=== PATIENT | female | born 1960 | race Caucasian/White ===

== ENCOUNTER 2017-12-10 10:41 | Emergency (ER) | payer MEDICAID, SELFPAY ==
[2017-12-10 10:43] VITALS: BP 151/79; PULSE 69; RESP 24; TEMP 36.8; O2SAT 100; BMI 27.4
--- NOTE | 2017-12-10 11:06 | EKG12_ITS ---
Test Reason : Blood Pressure : / mmHG Vent. Rate : 063 BPM Atrial Rate : 063 BPM P-R Int : 156 ms QRS Dur : 082 ms QT Int : 438 ms P-R-T Axes : 031 007 026 degrees QTc Int : 448 ms Normal sinus rhythm Nonspecific T wave abnormality Abnormal ECG No previous ECGs available Confirmed by SHRUTHI BRONSON, BRIANA ([id number]), editorial manager MICHELLE LANDEROS ([id number]) on 12/17/2017 1:58:32 PM Referred By: ALISIA Confirmed By:BRIANA HAWKINS MD
--- NOTE | 2017-12-10 11:07 | ED.VISSUMM ---
- ER Visit Summary Date of Service: 12/10/17 Chief Complaint: Chest pain and bilateral upper extremity discomfort History of Present Illness: The patient is a 57 F who was brought from Dr. Angeles's office because of chest pain and bilateral arm pain. Patient states he felt fatigued, overburdened and overwhelmed on Saturday. She had no other symptoms. There were no alleviating, precipitating or exacerbating factors other than she had no energy to do anything. She states yesterday while sitting she developed left arm pain that was moderate in intensity that was followed by pain that went from the right to the left side described as a ache and if she was run over. When asked regarding the right arm pain her response did not make sense even with clarification because she responded left arm pain. She states nothing has made it better nor has anything precipitated. Palpation makes her pain worse. She has no history of PE or DVT or any risk factors. She denies any leg pain, swelling or discoloration. She denies headache, visual, ocular or auditory symptoms. She denies trouble with speech or swallowing. She presently is having chest pain. She has no respiratory symptoms. She has no GI or symptoms. There is no history of trauma. She denies rash or any skin lesions. Physical Examination: Vital signs are remarkable elevated blood pressure 151/79. Patient has a depressed affect with slow psychomotor skills. She is very soft-spoken. Head is atraumatic normocephalic. Pupils are equal round reactive. Extraocular muscles are intact. TMs are pearly white with landmarks noted. Nares patent with no drainage. Posterior pharynx without erythema or exudate. Uvula is midline. There is no dysphonia or dysphasia. Trachea is midline. There is no stridor with auscultation of the neck. There is no carotid bruit noted. Heart is regular without murmur, gallop or rub. S1 and S2 are normal. Lungs are clear to auscultation with good movement of air bilaterally. Patient has reproducible pain right and left side of the sternum to palpation. Abdomen is soft nontender with no hepatosplenomegaly. There is no asymmetry, swelling, discoloration, leg vein distention, palpable cords or tenderness along the distribution of the deep venous system. Neuro exam is nonfocal. Test Results: EKG is normal with a sinus mechanism and rate of 63. Computer reads nonspecific, which I am in disagreement with. View chest x-ray interpreted by me as negative. Troponin with greater than 20 hours of pain negative. Emergency Department Course and Treatment: Because there is a family history of coronary disease at early age EKG was ordered per nurse protocol and to evaluate her chest pain a chest x-ray was obtained to assess the cardiac silhouette and lung parenchyma mediastinum etc. Because she has had pain for greater than 20 hours troponin was obtained in the event that this is atypical cardiac presentation. Treatment Plan: Dr. Angeles was paged to inform him of findings and concerns. Disposition: Discharge to home with outpatient follow-up with Dr. Angeles Impression: 1. Bilateral chest pain 2. Depression 3. Generalized fatigue This note was generated with [employer] dictation software. It may contain incorrect words, spelling, and punctuation that were not noted in review of the chart prior to signing ED Disposition - Plan for ED Patient: Disposition: Home or Assisted Living Chief Complaint: Chest Pain Instructions: ED Chest Pain NonCardiac Referrals: Gustavo Angeles Chi, MD [Primary Care Provider] - 12/11/17 Additional Instructions: Call Dr. Angeles's office for appointment time to be seen tomorrow
--- NOTE | 2017-12-10 11:33 | RAD_ITS ---
STUDY: X-RAY CHEST REASON FOR EXAM: Female, 57 years old. Chest pain and arm pain. TECHNIQUE: PA and lateral views of the chest. COMPARISON: Comparison is made with prior study dated July 25, 2017. FINDINGS: EKG electrodes are seen. Surgical clips are seen in the left axillary region. The lungs are clear and expanded. There is no demonstrated pleural abnormality. Normal size heart. Normal mediastinum and hitesh. Normal visualized pulmonary arteries. Normal visualized aortic arch and descending thoracic aorta. There is demineralization of the osseous structures. Normal visualized ribs, clavicles, and shoulders. There is no demonstrated abnormality of the visualized soft tissue structures of the upper abdomen. RAD/Chest PA and Lateral IMPRESSION: No acute abnormality is seen. Electronically Signed: Natanael Flaherty MD at 12:35 EST Tel [phone], Service support ,
[2017-12-10 11:42] VITALS: BP 130/65; PULSE 62; RESP 19; O2SAT 100
[2017-12-10 12:31] VITALS: BP 135/70; PULSE 62; RESP 20; O2SAT 99
--- NOTE | 2017-12-10 12:35 | ED.RN ---
REVIEWED D/C INSTRUCTIONS, FOLLOW UP CARE, AND S/S THAT WOULD WARRANT A RETURN TO THE ED WITH PT. PT VERBALIZED AN UNDERSTANDING AND DENIES FURTHER QUESTIONS FOR THIS RN. PT SKIN P/W/D, RESP EVEN AND UNLABORED, PT A&O X 3, NO DISTRESS NOTED. PT AMBULATED OUT OF ED, GAIT STEADY.
== END 2017-12-10 12:36 | disposition home or self-care (01) ==
PROVIDERS: Emergency Provider Emergency Medicine; Family Provider Family Medicine Geriatric Medicine; PCP Family Medicine Geriatric Medicine
DX: R07.9 Chest pain, unspecified (principal); R53.83 Other fatigue; F32.9 Major depressive disorder, single episode, unspecified; I10 Essential (primary) hypertension; E78.00 Pure hypercholesterolemia, unspecified; Z79.51 Long term (current) use of inhaled steroids; Z79.899 Other long term (current) drug therapy
CPT/HCPCS: 71046; 84484; 93005; 99284; A4216

== ENCOUNTER → 2018-04-29 15:29 | Outpatient (CLI) | payer MEDICAID, SELFPAY ==
[2018-04-29 16:29] LABS: Absolute Lymphocyte Count 2.25 X10^3/ul (0.83-4.51); Basophil# 0.06 X10^3/uL; Basophil% 0.8 % (0-1); Eosinophil# 0.31 X10^3/uL; Eosinophils% 4.4 % (0-5); Hematocrit 34.8 % (37-47); Hemoglobin 11.5 g/dl (12.0-15.0); Lymphocyte # 2.25 X10^3/ul (4.0); Lymphocyte % 31.7 % (19-41); Mean Corpuscular Volume 90.9 fL (81-99); Mean Platelet Vol. 9.8 fl (6.2-12.0); Monocyte# 0.48 X10^3/uL; Monocyte% 6.8 % (0-10); Neutrophil # 3.98 X10^3/uL (2.7-7.7); Neutrophil % 56.2 % (47-70); Platelet Count 302 K/mm3 (150-450); RBC Distribution Width SD 42.9 fl (35.1-43.9); Red Blood Count 3.83 M/mm3 (4.2-5.4); White Blood Count 7.1 K/mm3 (4.4-11.0)
[2018-04-29 16:34] LABS: POSITIVE COUNT NO; POSITIVE DIFFERENTIAL NO; POSITIVE MORPHOLOGY NO
[2018-04-29 16:59] LABS: AST(SGOT) 20 U/L (15-37); Alanine Aminotransfer ALT/SGPT 29 U/L (13-56); Albumin, Serum 3.7 g/dL (3.2-5.0); Alkaline Phosphatase 92 U/L (45-117); Anion Gap 8 (5-15); BUN 9 mg/dL (7-18); BUN/Creat Ratio 11.4 RATIO (10-20); Calcium,Total 9.3 mg/dL (8.5-10.1); Chloride 106 mmol/L (98-107); Creatinine, Serum 0.79 mg/dL (0.55-1.02); EST Glomerular Filtration Rate 79 mL/min (>60); Est Glom Filt Rate - Afr Amer 96 mL/min (>60); Globulin 3.8 g/dL (2.2-4.2); Glucose 87 mg/dL (74-106); Potassium 4.3 mmol/L (3.5-5.1); Protein, Total 7.5 g/dL (6.4-8.2); Sodium Level 142 mmol/L (136-145); Thyroid Stim Hormone (TSH) 1.59 uIU/mL (0.358-3.74)
[2018-04-30 10:18] LABS: Vitamin D,25 Hydroxy 20.4 ng/mL (29.95-100.01)
== END ==
PROVIDERS: Family Provider Family Medicine Geriatric Medicine; PCP Family Medicine Geriatric Medicine; Visit Provider Family Medicine Geriatric Medicine
DX: E55.9 Vitamin D deficiency, unspecified (principal); R53.83 Other fatigue
CPT/HCPCS: 36415; 80053; 82306; 84443; 85025

== ENCOUNTER → 2018-10-17 11:02 | Outpatient (CLI) | payer MEDICAID, SELFPAY ==
[2018-10-17 12:27] LABS: Absolute Lymphocyte Count 2.03 X10^3/ul (0.83-4.51); Absolute Neutrophil Count 4.4 X10^3/uL (2.0-7.7); Basophil# 0.07 X10^3/uL; Eosinophil# 0.29 X10^3/uL; Hematocrit 37.1 % (37-47); Hemoglobin 12.3 g/dl (12.0-15.0); Lymphocyte # 2.03 X10^3/ul (4.0); Lymphocyte % 27.7 % (19-41); Mean Corp Hgb Conc 33.2 g/gl (32-36); Mean Corpuscular Hgb 30.1 pg (27.0-32.0); Mean Corpuscular Volume 90.9 fL (81-99); Mean Platelet Vol. 10.6 fl (6.2-12.0); Monocyte# 0.49 X10^3/uL; Monocyte% 6.7 % (0-10); Neutrophil # 4.43 X10^3/uL (2.7-7.7); Neutrophil % 60.3 % (47-70); Platelet Count 317 K/mm3 (150-450); RBC Distribution Width CV 12.9 % (11.6-14.6); RBC Distribution Width SD 42.4 fl (35.1-43.9); Red Blood Count 4.08 M/mm3 (4.2-5.4); White Blood Count 7.3 K/mm3 (4.4-11.0)
[2018-10-17 12:48] LABS: POSITIVE COUNT NO; POSITIVE DIFFERENTIAL NO; POSITIVE MORPHOLOGY NO
[2018-10-17 14:10] LABS: Vitamin D,25 Hydroxy 20.2 ng/mL (29.95-100.01)
[2018-10-17 14:17] LABS: AST(SGOT) 23 U/L (15-37); Alanine Aminotransfer ALT/SGPT 32 U/L (13-56); Albumin, Serum 3.7 g/dL (3.2-5.0); Alkaline Phosphatase 114 U/L (45-117); Anion Gap 8 (5-15); BUN 12 mg/dL (7-18); BUN/Creat Ratio 14.7 RATIO (10-20); Calcium,Total 9.1 mg/dL (8.5-10.1); Chloride 104 mmol/L (98-107); Creatinine, Serum 0.82 mg/dL (0.55-1.02); EST Glomerular Filtration Rate 76 mL/min (>60); Est Glom Filt Rate - Afr Amer 92 mL/min (>60); Globulin 3.8 g/dL (2.2-4.2); Glucose 77 mg/dL (74-106); Potassium 4.1 mmol/L (3.5-5.1); Protein, Total 7.5 g/dL (6.4-8.2); Sodium Level 137 mmol/L (136-145); Thyroid Stim Hormone (TSH) 0.98 uIU/mL (0.358-3.74)
--- OUTSIDE RECORDS SUMMARY | 2018-12-03 03:39 | XMS RPT_ITS ---
:1960 Author Organization OH[facility] Care Team Providers Name Role Phone Karthik, Gustavo Chi Attending Unavailable Karthik, Gustavo Chi Primary Care Unavailable Karthik, Gustavo Chi Attending Unavailable Karthik, Gustavo Chi Referring Unavailable Karthik, Gustavo Chi Primary Care Unavailable Karthik, Gustavo Chi Primary Care Unavailable Sanderson, Roverto Attending Unavailable Karthik, Gustavo Chi Attending Unavailable Karthik, Gustavo Chi Primary Care Unavailable PROBLEMS PROBLEMS No Problem Records FoundPROCEDURES PROCEDURES No Procedure Records FoundRESULTS RESULTS CBC W/DIFF, AUTOMATED Collected: 10/17/2018 Status: F Source: [place] 11:03 AM [facility] [place] TYPE CODE TESTS RESULT OUT OF RANGE REFERENCE UNITS LAB L100.1000 4.4-11.0 K/mm3 Normal WBC 7.3 LAB L100.1200 4.2-5.4 M/mm3 Low RBC 4.08 LAB L100.1300 12.0-15.0 g/dl Normal HGB 12.3 LAB L100.1400 37-47 % Normal HCT 37.1 LAB L100.1500 81-99 fL Normal MCV 90.9 LAB L100.1600 27.0-32.0 pg Normal MCH 30.1 LAB L100.1700 32-36 g/gl Normal MCHC 33.2 LAB L100.1810 11.6-14.6 % Normal RDW CV 12.9 LAB L100.1820 35.1-43.9 fl Normal RDW SD 42.4 LAB L100.1900 150-450 K/mm3 Normal PLT 317 LAB L100.2000 6.2-12.0 fl Normal MPV 10.6 LAB L100.2100 47-70 % Normal NEUT% 60.3 LAB L100.2200 19-41 % Normal LY% 27.7 LAB L100.2300 0-10 % Normal MONO% 6.7 LAB L100.2400 0-5 % Normal EO% 4.0 LAB L100.2500 0-1 % Normal BASO% 1.0 LAB L100.2550 0.0-0.9 % Normal IM GRAN % 0.300 Result Comment: IG% - Immature Granulocytes (promyelocytes, myelocytes and metamyelocytes) > 1% indicates that a LEFT SHIFT is Present. LAB L100.2620 2.0-7.7 X10 3/uL Normal Absolute Neut 4.4 LAB L100.2720 0.83-4.51 X10 3/ul Normal Absolute Lymph 2.03 Performed By: #### L100.0100 #### [facility] [address] [place], [address] VITAMIN D,25 HYDROXY Collected: 10/17/2018 Status: F Source: [place] 11:03 AM [facility] RE[place] TYPE CODE TESTS RESULT OUT OF REFERENCE UNITS RANGE LAB L506.1000 29.95-100.01 ng/mL Low Vitamin D 20.2 25-OH Result Comment: Vitamin D 25(OH) Status Range Deficiency <20 ng/mL (50nmol/L) Insuffciency 20 - 30 ng/mL (50 - 75 nmol/L) Sufficiency 30 - 100 ng/mL (75 - 250 nmol/L) Toxicity >100 ng/mL (>250 nmol/L) Performed By: #### L506.1000 #### [facility] [address] [place], [address] COMPREHENSIVE METABOLIC Collected: 10/17/2018 Status: F Source: [place] AGUAYO 11:03 AM [facility] REPOSITORY TYPE CODE TESTS RESULT OUT OF RANGE REFERENCE UNITS LAB L501.0100 74-106 mg/dL Normal GLU 77 Result Comment: Please note revised GLUCOSE reference range effective 2017. LAB L501.1000 7-18 mg/dL Normal BUN 12 LAB L501.1100 0.55-1.02 mg/dL Normal CREAT,SERUM 0.82 Result Comment: The validity of the calculated GFR AND GFRAA in patients over 70 years has not been determined. Clinical correlation is essential. LAB L501.1110 >60 mL/min Normal EST GFR 76 Result Comment: Non- GFR Calc LAB L501.1115 >60 mL/min Normal EST GFR - AA 92 Result Comment: GFR Calc LAB L501.1300 10-20 RATIO Normal BUN/CRE 14.7 LAB L501.1500 6.4-8.2 g/dL T Normal PROT 7.5 LAB L501.1800 3.2-5.0 g/dL Normal ALB 3.7 LAB L501.1950 2.2-4.2 g/dL Normal GLOB 3.8 LAB L501.2000 0.9-2.4 RATIO Normal A/G 1.0 LAB L501.2200 8.5-10.1 mg/dL CA Normal 9.1 LAB L501.4100 15-37 U/L Normal AST 23 LAB L501.4305 45-117 U/L Normal ALK P 114 LAB L501.4405 13-56 U/L Normal ALT 32 LAB L501.4600 0.20-1.00 mg/dL T Normal BILI 0.50 LAB L501.5300 136-145 mmol/L NA Normal 137 LAB L501.5600 3.5-5.1 mmol/L K Normal 4.1 LAB L501.5900 98-107 mmol/L CL Normal 104 LAB L501.6100 21.0-32.0 mmol/L Normal CO2 25.0 LAB L501.6200 5-15 Normal GAP 8 Performed By: #### L500.4050, L501.9520 #### [facility] [address] [place], [address] THYROID STIM HORMONE Collected: 10/17/2018 Status: F Source: [place] (TSH) 11:03 AM [facility] REPOS[facility]ORY TYPE CODE TESTS RESULT OUT OF RANGE REFERENCE UNITS LAB L501.9520 0.358-3.74 uIU/mL Normal TSH 0.98 Performed By: #### L500.4050, L501.9520 #### [facility] [address] [place], [address] CBC W/DIFF, AUTOMATED Collected: 04/29/2018 Status: F Source: [place] 3:29 PM [facility] REPOSITORY TYPE CODE TESTS RESULT OUT OF RANGE REFERENCE UNITS LAB L100.1000 4.4-11.0 K/mm3 Normal WBC 7.1 LAB L100.1200 4.2-5.4 M/mm3 Low RBC 3.83 LAB L100.1300 12.0-15.0 g/dl Low HGB 11.5 LAB L100.1400 37-47 % Low HCT 34.8 LAB L100.1500 81-99 fL Normal MCV 90.9 LAB L100.1600 27.0-32.0 pg Normal MCH 30.0 LAB L100.1700 32-36 g/gl Normal MCHC 33.0 LAB L100.1810 11.6-14.6 % Normal RDW CV 13.0 LAB L100.1820 35.1-43.9 fl Normal RDW SD 42.9 LAB L100.1900 150-450 K/mm3 Normal PLT 302 LAB L100.2000 6.2-12.0 fl Normal MPV 9.8 LAB L100.2100 47-70 % Normal NEUT% 56.2 LAB L100.2200 19-41 % Normal LY% 31.7 LAB L100.2300 0-10 % Normal MONO% 6.8 LAB L100.2400 0-5 % Normal EO% 4.4 LAB L100.2500 0-1 % Normal BASO% 0.8 LAB L100.2550 0.0-0.9 % Normal IM GRAN % 0.100 Result Comment: IG% - Immature Granulocytes (promyelocytes, myelocytes and metamyelocytes) > 1% indicates that a LEFT SHIFT is Present. LAB L100.2620 2.0-7.7 X10 3/uL Normal Absolute Neut 4.0 LAB L100.2720 0.83-4.51 X10 3/ul Normal Absolute Lymph 2.25 Performed By: #### L100.0100 #### [facility] [place], [address] COMPREHENSIVE METABOLIC Collected: 04/29/2018 Status: F Source: [place] [facility] 3:29 PM [facility]POSITORY TYPE CODE TESTS RESULT OUT OF RANGE REFERENCE UNITS LAB L501.0100 74-106 mg/dL Normal GLU 87 Result Comment: Please note revised GLUCOSE reference range effective 2017. LAB L501.1000 7-18 mg/dL Normal BUN 9 LAB L501.1100 0.55-1.02 mg/dL Normal CREAT,SERUM 0.79 Result Comment: The validity of the calculated GFR AND GFRAA in patients over 70 years has not been determined. Clinical correlation is essential. LAB L501.1110 >60 mL/min Normal EST GFR 79 Result Comment: Non- GFR Calc LAB L501.1115 >60 mL/min Normal EST GFR - AA 96 Result Comment: GFR Calc LAB L501.1300 10-20 RATIO Normal BUN/CRE 11.4 LAB L501.1500 6.4-8.2 g/dL T Normal PROT 7.5 LAB L501.1800 3.2-5.0 g/dL Normal ALB 3.7 LAB L501.1950 2.2-4.2 g/dL Normal GLOB 3.8 LAB L501.2000 0.9-2.4 RATIO Normal A/G 1.0 LAB L501.2200 8.5-10.1 mg/dL CA Normal 9.3 LAB L501.4100 15-37 U/L Normal AST 20 LAB L501.4305 45-117 U/L Normal ALK P 92 LAB L501.4405 13-56 U/L Normal ALT 29 LAB L501.4600 0.20-1.00 mg/dL T Normal BILI 0.40 LAB L501.5300 136-145 mmol/L NA Normal 142 LAB L501.5600 3.5-5.1 mmol/L K Normal 4.3 LAB L501.5900 98-107 mmol/L CL Normal 106 LAB L501.6100 21.0-32.0 mmol/L Normal CO2 28.0 LAB L501.6200 5-15 Normal GAP 8 Performed By: #### L500.4050, L501.9520 #### [facility] [address] [place], [address] THYROID STIM HORMONE Collected: 04/29/2018 Status: F Source: [place] (TSH) 3:29 PM [facility]POS[facility]ORY TYPE CODE TESTS RESULT OUT OF RANGE REFERENCE UNITS LAB L501.9520 0.358-3.74 uIU/mL Normal TSH 1.59 Performed By: #### L500.4050, L501.9520 #### [facility] [address] [place], [address] VITAMIN D,25 HYDROXY Collected: 04/29/2018 Status: F Source: [place] 3:29 PM [facility]POS[facility] TYPE CODE TESTS RESULT OUT OF REFERENCE UNITS RANGE LAB L506.1000 29.95-100.01 ng/mL Low Vitamin D 20.4 25-OH Result Comment: Vitamin D 25(OH) Status Range Deficiency <20 ng/mL (50nmol/L) Insuffciency 20 - 30 ng/mL (50 - 75 nmol/L) Sufficiency 30 - 100 ng/mL (75 - 250 nmol/L) Toxicity >100 ng/mL (>250 nmol/L) Performed By: #### L506.1000 #### [facility] [place], [address] 12 LEAD ELECTROCARDIOGRAM Observed: 12/17/2017 Status: F Source: [facility] 1:59 PM [facility] RE[facility]ITORY [facility] Cardiovascular Services [address] [place] [address] [place] [address] 12 Lead EKG 12/10/17 1045 MR#: [id number] Acct: [id number] Name: YASMIN MORALES Rep #: [id number] : 1960 57 From: Boone Hawkins MD Attending Dr: Status: DEP ER Ordering Dr: Roverto Sanderson MD Date: 12/10/17 Location: ED Sex: F C Admitted: Test Reason : Blood Pressure : / mmHG Vent. Rate : 063 BPM Atrial Rate : 063 BPM P-R Int : 156 ms QRS Dur : 082 ms QT Int : 438 ms P-R-T Axes : 031 007 026 degrees QTc Int : 448 ms Normal sinus rhythm Nonspecific T wave abnormality Abnormal ECG No previous ECGs available Confirmed by BOONE HAWKINS MD ([id number]), design editor MICHELLE LANDEROS ([id number]) on 12/17/2017 1:58:32 PM Referred By: ALISIA Confirmed By:BOONE HAWKINS MD 12/17/17 1358 Date Boone Hawkins MD CC: Gustavo Angeles MD; Roverto Sanderson MD Signed EMERGENCY DEPARTMENT Observed: 12/10/2017 Status: F Source: [facility] SUMMARY 12:00 PM [facility] RE[facility]ITORY [facility] Medical Records Department [address] [place] [address] Emergency Department Summary 12/10/17 1107 MR#: [id number] Acct: [id number] Name: YASMIN MORALES Rep #: [id number] : 1960 57 From: Roverto Sanderson MD PCP: Gustavo Angeles MD, Chi Status: REG ER - ER Visit Summary Date of Service: 12/10/17 Chief Complaint: Chest pain and bilateral upper extremity discomfort History of Present Illness: The patient is a 57 F who was brought from Dr. Angeles's office because of chest pain and bilateral arm pain. Patient states he felt fatigued, overburdened and overwhelmed on Saturday. She had no other symptoms. There were no alleviating, precipitating or exacerbating factors other than she had no energy to do anything. She states yesterday while sitting she developed left arm pain that was moderate in intensity that was followed by pain that went from the right to the left side described as a ache and if she was run over. When asked regarding the right arm pain her response did not make sense even with clarification because she responded left arm pain. She states nothing has made it better nor has anything precipitated. Palpation makes her pain worse. She has no history of PE or DVT or any risk factors. She denies any leg pain, swelling or discoloration. She denies headache, visual, ocular or auditory symptoms. She denies trouble with speech or swallowing. She presently is having chest pain. She has no respiratory symptoms. She has no GI or symptoms. There is no history of trauma. She denies rash or any skin lesions. Physical Examination: Vital signs are remarkable elevated blood pressure 151/79. Patient has a depressed affect with slow psychomotor skills. She is very soft-spoken. Head is atraumatic normocephalic. Pupils are equal round reactive. Extraocular muscles are intact. TMs are pearly white with landmarks noted. Nares patent with no drainage. Posterior pharynx without erythema or exudate. Uvula is midline. There is no dysphonia or dysphasia. Trachea is midline. There is no stridor with auscultation of the neck. There is no carotid bruit noted. Heart is regular without murmur, gallop or rub. S1 and S2 are normal. Lungs are clear to auscultation with good movement of air bilaterally. Patient has reproducible pain right and left side of the sternum to palpation. Abdomen is soft nontender with no hepatosplenomegaly. There is no asymmetry, swelling, discoloration, leg vein distention, palpable cords or tenderness along the distribution of the deep venous system. Neuro exam is nonfocal. Test Results: EKG is normal with a sinus mechanism and rate of 63. Computer reads nonspecific, which I am in disagreement with. View chest x-ray interpreted by me as negative. Troponin with greater than 20 hours of pain negative. Emergency Department Course and Treatment: Because there is a family history of coronary disease at early age EKG was ordered per nurse protocol and to evaluate her chest pain a chest x-ray was obtained to assess the cardiac silhouette and lung parenchyma mediastinum etc. Because she has had pain for greater than 20 hours troponin was obtained in the event that this is atypical cardiac presentation. Treatment Plan: Dr. Angeles was paged to inform him of findings and concerns. Disposition: Discharge to home with outpatient follow-up with Dr. Angeles Impression: 1. Bilateral chest pain 2. Depression 3. Generalized fatigue This note was generated with Dragon dictation software. It may contain incorrect words, spelling, and punctuation that were not noted in review of the chart prior to signing ED Disposition - Plan for ED Patient: Disposition: Home or Assisted Living Chief Complaint: Chest Pain Instructions: ED Chest Pain NonCardiac Referrals: Gustavo Angeles Chi, MD [Primary Care Provider] - 12/11/17 Additional Instructions: Call Dr. Angeles's office for appointment time to be seen tomorrow What to do if you have Problems For any increased pain, shortness of breath, bleeding, nausea or vomiting, chest pain, or any unexpected problems, contact your Primary Care Provider. Call [facility] ([phone]) or report to the closest Emergency Room. Call 911 if necessary. 12/10/17 1200 <Electronically signed by Roverto Sanderson MD> Date Roverto Sanderson MD Cosigner Signature (If Indicated): Date CC: Gustavo Angeles MD TROPONIN-I Collected: 12/10/2017 Status: F Source: [place] 11:14 AM [facility] REPOSITORY Order Comment: 'TROP' Serial specimen #1, #2, #3, or #4: 1 TYPE CODE TESTS RESULT OUT OF RANGE REFERENCE UNITS LAB L501.4010 <0.06 ng/mL Normal < 0.02 TROPONIN-I Result Comment: TROPONIN-I EXPECTED VALUES <0.05 NEGATIVE 0.06 - 0.59 AT RISK OF HI > OR = 0.60 SUGGEST HI Performed By: #### L501.4010 #### [facility] [address] [place], [address] CHEST PA AND LATERAL Observed: 12/10/2017 Status: F Source: [place] 11:07 AM [facility] RE[facility]IT[facility] Imaging Services [address] [place] [address] Chest PA and Lateral MR#: [id number] Acct: [id number] Name: YASMIN MORALES Rep #: [id number] : 1960 F 57 From: Natanael Flaehrty MD PCP: Gustavo Angeles MD, Chi Status: DEP ER Study: Chest PA and Lateral Date of Exam: 12/10/17 Exam# [id number] Ordering Dr: Roverto Sanderson MD STUDY: X-RAY CHEST REASON FOR EXAM: Female, 57 years old. Chest pain and arm pain. TECHNIQUE: PA and lateral views of the chest. COMPARISON: Comparison is made with prior study dated July 25, 2017. FINDINGS: EKG electrodes are seen. Surgical clips are seen in the left axillary region. The lungs are clear and expanded. There is no demonstrated pleural abnormality. Normal size heart. Normal mediastinum and hitesh. Normal visualized pulmonary arteries. Normal visualized aortic arch and descending thoracic aorta. There is demineralization of the osseous structures. Normal visualized ribs, clavicles, and shoulders. There is no demonstrated abnormality of the visualized soft tissue structures of the upper abdomen. RAD/Chest PA and Lateral IMPRESSION: No acute abnormality is seen. Electronically Signed: Natanael Flaherty MD at 12:35 EST Tel [phone], Service support , CC: Gustavo Angeles MD; Roverto Sanderson MD Physician/Ophthalmologist: Signed DIAG MAMM W/CAD, Observed: 11/27/2017 Status: F Source: [facility] 9:46 AM [facility] RE[facility]IT[facility] Imaging Services [address] [place] [address] DIAG MAMM W/CAD, UNILAT MR#: [id number] Acct: [id number] Name: YASMIN MORALES Rep #: [id number] : 1960 F 57 From: Natanael Flaherty MD PCP: Gustavo Angeles MD, Chi Status: REG CLI Study: DIAG MAMM W/CAD, UNILAT Date of Exam: 11/27/17 Exam# [id number] Ordering Dr: Gustavo Angeles MD MAMMOGRAPHY - UNILATERAL DIAGNOSTIC: LEFT BREAST REASON FOR EXAM: Female, 57 years old. Additional views of the left breast. PERTINENT HISTORY: TECHNIQUE: 90 degree view of the left breast was obtained. CAD: Full Field Digital Mammography with Computer Added Detection was performed. COMPARISON: Comparison is made with prior mammogram dated May 15, 2018. FINDINGS: Stable appearance of the 7.8 mm x 5.6 mm well-defined nodule in the deep slightly lateral portion of the breast. HPBI/DIAG MAMM W/CAD, UNILAT IMPRESSION: Stable unilateral diagnostic mammogram. ASSESSMENT CATEGORY: BIRADS Category 2: Benign. A letter regarding these results will be sent to the patient by the facility within 30 days. Approximately 10% of breast cancers are not detected by mammography. A normal mammogram should not delay biopsy of a clinically suspicious abnormality. Electronically Signed: Natanael Flaherty MD at 12:18 EST Tel [phone], Service support , CC: Gustavo Angeles MD Physician/Ophthalmologist: Signed BREAST LIMITED Observed: 11/27/2017 Status: F Source: [place] UNILATERAL 9:13 AM [facility] RE[facility]IT[facility] Imaging Services [address] [place] [address] Breast Limited Unilateral MR#: [id number] Acct: [id number] Name: YASMIN MORALES Rep #: [id number] : 1960 F 57 From: Natanael Flaherty MD PCP: Gustavo Angeles MD, Chi Status: REG CLI Study: Breast Limited Unilateral Date of Exam: 11/27/17 Exam# [id number] Ordering Dr: Gustavo Angeles MD STUDY: ULTRASOUND BREAST - LEFT REASON FOR EXAM: Female, 57 years old. Abnormal screening mammogram. TECHNIQUE: Axial and longitudinal images of the LEFT breast were performed with a high resolution ultrasound transducer. COMPARISON: Comparison is made with prior mammogram dated May 27, 2018 and November 15, 2017. FINDINGS: LEFT Breast: The small nodular density seen on the mammogram is not visualized on the ultrasound examination. The nodular density may have axial echogenicity characteristics and therefore not visualized. Correlation with MRI is recommended if clinically indicated. US/Breast Limited Unilateral IMPRESSION: The nodular density seen on the mammogram is not visualized on ultrasound. Correlation with MRI is recommended if clinically indicated. ASSESSMENT CATEGORY: BIRADS Category 0: Incomplete. Need additional imaging evaluation. A letter regarding these results will be sent to the patient by the facility within 30 days. Electronically Signed: Natanael Flaherty MD at 12:44 EST Tel [phone], Service support , CC: Gustavo Angeles MD Physician/Ophthalmologist: Signed ALLERGIES ALLERGIES DATE TYPE / CODE NAME / CODE REACTION SEVERITY SOURCE 12/10/2017 Drug Sulfa Rash Unknown [facility] Allergy/4160 ([facility] [address](SNOMED Antibiotics)/ Repository CT) [id number](RX NORM) ENCOUNTERS ENCOUNTERS ADMIT/DISCHARGE ACCOUNT ADMITTING ENCOUNTER LOCATION SOURCE NUMBER CLASS 10/17/2018 [id number] Ambulatory Olivia [place] 9 [facility] ing:POLAB3 Repository 04/29/2018 [id number] Ambulatory Olivia [place] 1 [facility] ing:POLAB3 Repository 12/10/2017/ [id number] Emergency Olivia Kaivta 8 0 [facility] ing:ED Repository 11/27/2017 [id number] Ambulatory Olivia [place] 7 [facility] ing:[facility] Repository PAYERS PAYERS ENCOUNTER GUARANTOR PAYER SUBSCRIBER SOURCE 10/17/2018 Yasmin [id number] Primary Yasmin Olivia [address] Insurance:CARESOURCEP EmersonDOB: [facility]: [id number] [address]Bjs: [id number] Repository Date:2018-10-17P O (HP) [address]ATTN: [place] [address]WK: 10/17/2018 Secondary NOT GIVENUNK Olivia Insurance:SELF PAY [facility] Number: Effective Repository Date:2018-10-17 04/29/2018 Yasmin [id number] Primary Yasmin [place] [address] Insurance:CARESOURCEP EmersonDOB: [facility] Number: [id number] [place] [address]Axu: [id number] Repository Date:2018-04-29P O (HP) [address]ATTN: [place] [address]GX: 04/29/2018 Secondary NOT GIVENUNK [place] Insurance:SELF PAY [facility] Number: Effective Repository Date:2018-04-29 12/10/2017 Yasmin [id number] Primary Yasmin [place]ita [address] Insurance:CARESOURCEP EmersonDOB: [facility] Number: [id number] [place] [address]Jvx: [id number] Repository Date:2017-12-10P O (HP) [address]ATTN: [place] [address]BN: 12/10/2017 Secondary NOT GIVENUNK Olivia Insurance:SELF PAY [facility] Number: Effective Repository Date:2017-12-10 11/27/2017 Yasmin [id number] Primary Yasmin [place]avita [address] Insurance:WAYLONHAROON [facility]: [id number] [address]Pcc: [id number] Repository Date:2017-11-26P O () [address]ATTN: [place] [address]RJ: 11/27/2017 Secondary NOT GIVENUNK [place] Insurance:SELF PAY [facility] Number: Effective Repository Date:2017-11-26
== END ==
PROVIDERS: Family Provider Family Medicine Geriatric Medicine; PCP Family Medicine Geriatric Medicine; Visit Provider Family Medicine Geriatric Medicine
DX: E55.9 Vitamin D deficiency, unspecified (principal); R53.83 Other fatigue
CPT/HCPCS: 36415; 80053; 82306; 84443; 85025

== ENCOUNTER 2019-02-16 15:45 | Emergency (ER) | payer MEDICAID, SELFPAY ==
[2019-02-16 15:46] VITALS: BP 162/86; PULSE 72; RESP 16; TEMP 36.6; O2SAT 100
--- NOTE | 2019-02-16 16:01 | ED.VISSUMM ---
- ER Visit Summary Date of Service: 02/16/19 Chief Complaint: Rash History of Present Illness: The patient is a 58 F who presents for rash since yesterday. Patient states 2 days ago she began feeling unwell, with dizziness and general malaise. Yesterday she developed a painful rash on her left lower side. Patient states it hurts to touch and was difficult to sleep. She denies any fever or other complaints. Patient has had shingles in the past on her left upper chest. Patient has history of hypothyroidism and mitral valve prolapse.. She does not have diabetes. No history of immunocompromise. Physical Examination: Vital signs: afebrile, hemodynamically stable, no hypoxia on room air General: well nourished, well developed, in no distress Skin: warm, dry, vesiculopapular rash in a dermatomal bandlike pattern on the left lower flank in the L4/L5 region, does not cross midline, hyperesthesia to light touch, no pallor HEENT: normocephalic and atraumatic; PERRL, EOMI, moist mucous membranes Cardiovascular: regular rate and rhythm Respiratory: No increased work of breathing MSK: Moves all extremities, no deformities, normal strength Neuro: Awake and alert, oriented ?4. No facial droop, sensation and motor function intact and symmetric Test Results: [] Emergency Department Course and Treatment: Patient presents with a rash consistent with herpes zoster. Rash has been present less than 48 hours. Patient was started on valacyclovir and will use Tylenol for mild to moderate pain. She was given a prescription for oxycodone for severe or nighttime pain. Patient is to follow-up with her doctor if she has any issues with pain control. Contact precautions discussed, including avoiding immunocompromised, ladies, and unimmunized children. Patient discharged home. Treatment Plan: [] Disposition: [] Impression: herpoes zoster of left torso This note was generated with [employer] dictation software. It may contain incorrect words, spelling, and punctuation that were not noted in review of the chart prior to signing ED Disposition - Plan for ED Patient: Disposition: Home or Assisted Living Instructions: ED Shingles Prescriptions: Oxycodone [Oxyir] 5 mg PO Q6H PRN PRN 5 Days #15 tab PRN Reason: Pain Valacyclovir HCl [Valacyclovir] 1,000 mg PO TID 7 Days #21 tab Referrals: Gustavo Angeles Chi, MD [Primary Care Provider] - 1 Week if not improving Additional Instructions: You may use rahs-buk-jhttrla Tylenol as needed for mild to moderate pain. You may use the oxycodone as needed for severe or nighttime pain. Take the valacyclovir 3 times daily for the entire week as prescribed. Please follow-up with your doctor if you have any further issues with pain control. Avoid being around women, young unimmunized babies, unimmunized children, and anyone with a compromised immune system until your rash has healed. If you have any worsening of your condition or any new concerning symptoms, please return immediately to the emergency department for another evaluation.
--- NOTE | 2019-02-16 16:06 | ED.DCSUM_ITS ---
- ER Visit Summary Date of Service: 02/16/19 Chief Complaint: Rash History of Present Illness: The patient is a 58 F who presents for rash since yesterday. Patient states 2 days ago she began feeling unwell, with dizziness and general malaise. Yesterday she developed a painful rash on her left lower side. Patient states it hurts to touch and was difficult to sleep. She denies any fever or other complaints. Patient has had shingles in the past on her left upper chest. Patient has history of hypothyroidism and mitral valve prolapse.. She does not have diabetes. No history of immunocompromise. Physical Examination: Vital signs: afebrile, hemodynamically stable, no hypoxia on room air General: well nourished, well developed, in no distress Skin: warm, dry, vesiculopapular rash in a dermatomal bandlike pattern on the left lower flank in the L4/L5 region, does not cross midline, hyperesthesia to light touch, no pallor HEENT: normocephalic and atraumatic; PERRL, EOMI, moist mucous membranes Cardiovascular: regular rate and rhythm Respiratory: No increased work of breathing MSK: Moves all extremities, no deformities, normal strength Neuro: Awake and alert, oriented ?4. No facial droop, sensation and motor function intact and symmetric Test Results: [] Emergency Department Course and Treatment: Patient presents with a rash consistent with herpes zoster. Rash has been present less than 48 hours. P atient was started on valacyclovir and will use Tylenol for mild to moderate pain. She was given a prescription for oxycodone for severe or nighttime pain. Patient is to follow-up with her doctor if she has any issues with pain control. Contact precautions discussed, including avoiding immunocompromised, ladies, and unimmunized children. Patient discharged home. Treatment Plan: [] Disposition: [] Impression: herpoes zoster of left torso This note was generated with [employer] dictation software. It may contain incorrect words, spelling, and punctuation that were not noted in review of the chart prior to signing ED Disposition - Plan for ED Patient: Disposition: Home or Assisted Living Instructions: ED Shingles Prescriptions: Oxycodone [Oxyir] 5 mg PO Q6H PRN PRN 5 Days #15 tab PRN Reason: Pain Valacyclovir HCl [Valacyclovir] 1,000 mg PO TID 7 Days #21 tab Referrals: Gustavo Angeles Chi, MD [Primary Care Provider] - 1 Week if not improving Additional Instructions: You may use [id number] Tylenol as needed for mild to moderate pain. You may use the oxycodone as needed for severe or nighttime pain. Take the valacyclovir 3 times daily for the entire week as prescribed. Please follow-up with your doctor if you have any further issues with pain control. Avoid being around women, young unimmunized babies, unimmunized children, and anyone with a compromised immune system until your rash has healed. If you have any worsening of your condition or any new concerning symptoms, please return immediately to the emergency department for another evaluation.
== END 2019-02-16 16:23 | disposition home or self-care (01) ==
LOC: ED 16:19
PROVIDERS: Emergency Provider Emergency Medicine; Family Provider Family Medicine Geriatric Medicine; PCP Family Medicine Geriatric Medicine
DX: B02.9 Zoster without complications (principal); E03.9 Hypothyroidism, unspecified; I34.1 Nonrheumatic mitral (valve) prolapse; Z79.899 Other long term (current) drug therapy
CPT/HCPCS: 99282

== ENCOUNTER → 2019-03-09 | Outpatient (CLI) | payer MEDICAID, SELFPAY ==
--- NOTE | 2019-03-09 09:24 | US_ITS ---
STUDY: ULTRASOUND BREAST - LEFT REASON FOR EXAM: Female, 58 years old. Left abnormal mammogram. 7.8 mm, well-defined nodule in the deep slightly lateral portion of the left breast identified on the left mammography dated November 27, 2017. TECHNIQUE: Axial and longitudinal images of the LEFT breast were performed with a high resolution ultrasound transducer. COMPARISON: November 27, 2017. FINDINGS: LEFT Breast: The left breast was sonographically evaluated utilizing various imaging planes. There is no sonographically evident discrete nodule, mass or cyst. There is no fluid collection. US/Breast Limited Unilateral IMPRESSION: Stable exam relative to left breast sonography performed November 27, 2017. ASSESSMENT CATEGORY: Again, the nodular density identified on mammography is not currently visualized on ultrasound. Again, recommend contrast-enhanced MRI if clinically indicated. Electronically Signed: Lino Jeronimo MD at 11:46 EDT , Service support ,
--- NOTE | 2019-03-09 09:24 | BI_ITS ---
MAMMOGRAPHY - BILATERAL DIAGNOSTIC REASON FOR EXAM: Female, 58 years old. First cousin with breast cancer and 50s. Previous MRI recommended because a deep left density was not seen on ultrasound but was mammographically apparent. PERTINENT HISTORY: First cousin with breast cancer and 50s. Previous MRI recommended because a deep left density was not seen on ultrasound but was mammographically apparent. TECHNIQUE: Digital examination. Mediolateral oblique (MLO) and craniocaudad (CC) views of both breasts were obtained. CAD: CAD was performed on this study. COMPARISON: November 15, 2017. FINDINGS: Breast Composition: There are scattered areas of fibroglandular density. The previously mentioned deep left breast density is only convincingly seen on the CC tomographic images and is located within the slightly inner deep left breast and currently measures 8.8 x 4.9 mm. The position, morphology and marginal characteristics appear stable relative with the 2018 exam. Sonography performed today failed to identify any abnormality. Abdomen note, sonography of the left breast performed November 27, 2017 also failed to find a correlative sonographic finding. There are no suspicious clustered microcalcifications. There are no secondary signs of malignancy. BI/DIAG MAMM W/CAD, BILAT IMPRESSION: Stable bilateral diagnostic mammogram. ASSESSMENT CATEGORY: BIRADS Category 0: Incomplete. Need additional imaging evaluation. A letter regarding these results will be sent to the patient by the facility within 30 days. FOLLOW UP RECOMMENDATION: Ultrasound Recommended. (I) Approximately 10% of breast cancers are not detected by mammography. A normal mammogram should not delay biopsy of a clinically suspicious abnormality. Electronically Signed: Lino Jeronimo MD at 13:06 EDT , Service support ,
== END | disposition home or self-care (01) ==
LOC: OPUS 09:22
PROVIDERS: Family Provider Family Medicine Geriatric Medicine; PCP Family Medicine Geriatric Medicine; Referring Provider Family Medicine Geriatric Medicine; Visit Provider Family Medicine Geriatric Medicine
DX: N64.4 Mastodynia (principal); Z78.0 Asymptomatic menopausal state
CPT/HCPCS: 76642; 77062; 77066; G0279

== ENCOUNTER → 2019-03-26 | Outpatient (CLI) | payer MEDICAID, SELFPAY ==
--- NOTE | 2019-03-26 11:08 | MRI_ITS ---
STUDY: BILATERAL BREAST MR WITHOUT AND WITH CONTRAST REASON FOR EXAM: Female, 58 years old. Painful and swollen breast. TECHNIQUE: Multi-sequence multi-echo imaging of both breasts was performed with a dedicated breast coil. T1-weighted and T2-weighted images were performed before the administration of contrast. T1-weighted images were also performed after the administration of 15 IV Dotarem without complications. COMPARISON: Bilateral mammogram dated March 09, 2019 and left breast ultrasound dated March 09, 2019. FINDINGS: RIGHT BREAST: The breast tissue is fatty with no background enhancement. There are no abnormal enhancing masses or areas of non-mass enhancement in the right breast. LEFT BREAST: The breast tissue is fatty with no background enhancement. There are no abnormal enhancing masses or areas of non-mass enhancement in the left breast. There are slightly enlarged lymph nodes bilaterally which have fatty hitesh and are not suspicious. There is no abnormality in the visualized regions of the chest or liver. MRI/Breast Bilateral W/O and W IMPRESSION: Unremarkable breast MR examination with contrast. CATEGORY: BIRADS Category 2: Benign. A letter regarding these results will be sent to the patient by the facility within 30 days. Electronically Signed: Hernan Corral MD at 11:32 EDT , Service support ,
[2019-03-26 11:41] LABS: CREATININE FINGERSTICK 1.1 mg/dL (0.55-1.02)
== END | disposition home or self-care (01) ==
LOC: MRI 10:11
PROVIDERS: Family Provider Family Medicine Geriatric Medicine; PCP Family Medicine Geriatric Medicine; Referring Provider Family Medicine Geriatric Medicine; Visit Provider Family Medicine Geriatric Medicine
DX: R92.8 Other abnormal and inconclusive findings on diagnostic imaging of breast (principal)
CPT/HCPCS: 77049; A9575; A4216; C8908

== ENCOUNTER → 2019-05-01 | Outpatient (CLI) | payer MEDICAID, SELFPAY ==
[2019-05-01 12:27] LABS: Absolute Lymphocyte Count 2.16 X10^3/ul (0.83-4.51); Absolute Neutrophil Count 2.9 X10^3/uL (2.0-7.7); Basophil# 0.04 X10^3/uL; Basophil% 0.7 % (0-1); Eosinophil# 0.22 X10^3/uL; Eosinophils% 3.8 % (0-5); Hematocrit 35.4 % (37-47); Hemoglobin 11.7 g/dl (12.0-15.0); Lymphocyte # 2.16 X10^3/ul (4.0); Lymphocyte % 37.7 % (19-41); Mean Corp Hgb Conc 33.1 g/gl (32-36); Mean Corpuscular Hgb 30.6 pg (27.0-32.0); Mean Corpuscular Volume 92.7 fL (81-99); Monocyte# 0.42 X10^3/uL; Monocyte% 7.3 % (0-10); Neutrophil # 2.88 X10^3/uL (2.7-7.7); Neutrophil % 50.3 % (47-70); POSITIVE COUNT NO; POSITIVE DIFFERENTIAL NO; POSITIVE MORPHOLOGY NO; Platelet Count 284 K/mm3 (150-450); RBC Distribution Width CV 13.3 % (11.6-14.6); RBC Distribution Width SD 44.3 fl (35.1-43.9); Red Blood Count 3.82 M/mm3 (4.2-5.4); White Blood Count 5.7 K/mm3 (4.4-11.0)
[2019-05-01 12:55] LABS: AST(SGOT) 27 U/L (15-37); Alanine Aminotransfer ALT/SGPT 33 U/L (13-56); Albumin, Serum 3.6 g/dL (3.2-5.0); Alkaline Phosphatase 98 U/L (45-117); Anion Gap 8 (5-15); BUN 8 mg/dL (7-18); BUN/Creat Ratio 10.1 RATIO (10-20); Calcium,Total 9.3 mg/dL (8.5-10.1); Chloride 108 mmol/L (98-107); EST Glomerular Filtration Rate 78 mL/min (>60); Est Glom Filt Rate - Afr Amer 95 mL/min (>60); Globulin 3.6 g/dL (2.2-4.2); Glucose 77 mg/dL (74-106); Potassium 4.1 mmol/L (3.5-5.1); Protein, Total 7.2 g/dL (6.4-8.2); Sodium Level 142 mmol/L (136-145); Thyroid Stim Hormone (TSH) 0.97 uIU/mL (0.358-3.74)
== END | disposition home or self-care (01) ==
LOC: POLAB3 09:44
PROVIDERS: Family Provider Family Medicine Geriatric Medicine; PCP Family Medicine Geriatric Medicine; Visit Provider Family Medicine Geriatric Medicine
DX: E55.9 Vitamin D deficiency, unspecified (principal); R53.83 Other fatigue
CPT/HCPCS: 36415; 80053; 82306; 84443; 85025

== ENCOUNTER → 2019-10-20 10:55 | Outpatient (CLI) | payer MEDICAID, SELFPAY ==
[2019-10-20 12:31] LABS: Absolute Lymphocyte Count 2.15 X10^3/uL (0.83-4.51); Absolute Neutrophil Count 4.4 X10^3/uL (2.0-7.7); Basophil# 0.09 X10^3/uL; Basophil% 1.2 % (0-1); Eosinophils% 2.7 % (0-5); Hematocrit 38.7 % (37-47); Hemoglobin 12.7 g/dL (12.0-15.0); Lymphocyte # 2.15 X10^3/ul (4.0); Mean Corp Hgb Conc 32.8 g/dL (32-36); Mean Corpuscular Hgb 30.2 pg (27.0-32.0); Mean Corpuscular Volume 91.9 fL (81-99); Mean Platelet Vol. 10.1 fl (6.2-12.0); Monocyte% 6.7 % (0-10); NRBC Flagged by Analyzer 0 % (0-5); Neutrophil # 4.44 X10^3/uL (2.7-7.7); Neutrophil % 59.9 % (47-70); Platelet Count 328 K/mm3 (150-450); RBC Distribution Width CV 12.6 % (11.6-14.6); RBC Distribution Width SD 42.3 fl (35.1-43.9); Red Blood Count 4.21 M/mm3 (4.2-5.4); White Blood Count 7.4 K/mm3 (4.4-11.0)
[2019-10-20 12:45] LABS: Vitamin D,25 Hydroxy 19.2 ng/mL (29.95-100.01)
[2019-10-20 13:17] LABS: AST(SGOT) 20 U/L (15-37); Alanine Aminotransfer ALT/SGPT 32 U/L (13-56); Albumin, Serum 3.8 g/dL (3.2-5.0); Alkaline Phosphatase 115 U/L (45-117); Anion Gap 7 (5-15); BUN 10 mg/dL (7-18); BUN/Creat Ratio 12.2 RATIO (10-20); Calcium,Total 9.2 mg/dL (8.5-10.1); Chloride 106 mmol/L (98-107); Creatinine, Serum 0.82 mg/dL (0.55-1.02); EST Glomerular Filtration Rate 76 mL/min (>60); Est Glom Filt Rate - Afr Amer 91 mL/min (>60); Globulin 3.8 g/dL (2.2-4.2); Glucose 76 mg/dL (74-106); Potassium 3.9 mmol/L (3.5-5.1); Protein, Total 7.6 g/dL (6.4-8.2); Sodium Level 138 mmol/L (136-145); Thyroid Stim Hormone (TSH) 1.06 uIU/mL (0.358-3.74)
== END ==
PROVIDERS: Family Provider Family Medicine Geriatric Medicine; PCP Family Medicine Geriatric Medicine; Visit Provider Family Medicine Geriatric Medicine
DX: E55.9 Vitamin D deficiency, unspecified (principal); R53.83 Other fatigue
CPT/HCPCS: 36415; 80053; 82306; 84443; 85025

== ENCOUNTER 2019-12-15 12:38 | Emergency (ER) | payer MEDICAID, SELFPAY ==
[2019-12-15 12:40] VITALS: BP 133/69; PULSE 71; RESP 16; TEMP 36; O2SAT 99; BMI 28.5
--- NOTE | 2019-12-15 12:55 | VDLE_ITS ---
Reason For Study: swelling RIGHT GSV is normal. CFV is compressible, spontaneous, phasic, competent and demonstrates normal augmentation. FV is compressible, spontaneous, phasic, competent and demonstrates normal augmentation. POP V is compressible, spontaneous, phasic, competent and demonstrates normal augmentation. T/P Trunk is compressible. PTV is compressible. RT PerV is compressible. Procedure Exam performed portable in ED. The exam was diagnostic. A preliminary report was called and/or faxed to [facility]. Interpretation Summary There is no evidence of right lower extremity deep vein thrombosis. Right great saphenous vein appears patent and compressible segmentally. Ordering Physician: Kota Myers Performed By: Gerard Logan RVT
--- NOTE | 2019-12-15 12:55 | RAD_ITS ---
STUDY: X-RAY - RIGHT FOOT CLINICAL: Female, 59 years old. PT STATES PAIN AND SWELLING X 1 WEEK, NO KNOW INJURY TECHNIQUE: 3 view(s) of the foot. COMPARISON: None. FINDINGS: There is a plantar calcaneal spur. Normal visualized subtalar, talonavicular, calcaneocuboid, tarsal and tarsometatarsal articulations. Normal metatarsi. Normal metatarsophalangeal joint of the great toe. Normal tibial and fibular sesamoid bones. Normal interphalangeal joint of the great toe. Normal phalanges of the great toe. Normal second through fifth metatarsophalangeal joints. Normal interphalangeal joints and phalanges of the lesser toes. There is non-specific soft tissue swelling of the foot. RAD/Foot min 3 Views IMPRESSION: Soft tissue swelling. Plantar spur. Electronically Signed: Natanael Flaherty, at 13:49 EST , Service support ,
--- NOTE | 2019-12-15 12:56 | ED.VIS.GEN ---
History of Present Illness Chief Complaint: Lower Extremity Injury Narrative: Patient presents for the evaluation of right foot pain and swelling. Patient states that yesterday she looked at her foot and noted swelling on the top of the foot onto the toes. She states the swelling is less today. She has been having discomfort in the foot for several days but there had not been any swelling. Now she notes a redness over the lateral midfoot. 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 When asked why she states she was going to go on Saturday but she wanted to be able to pick her son up at 7 but does not really answer the question as to why she has not made an appointment with them but instead came to emergency. No fevers. No known trauma. No history of gout. She denies history of diabetes. No prior DVT PE. Past Medical History - Allergies and Home Meds Allergies/Adverse Reactions: Allergies Sulfa (Sulfonamide Antibiotics) Allergy (Verified 12/15/19 12:39) Rash Primary Care Physician: Gustavo Angeles Chi, MD [Primary Care Provider] - Smoking Status: Never smoker Review of Systems General: Denies: Chills, Fever, Sweats Eyes: Denies: Visual changes - bilaterally, Diplopia ENT: Denies: Rhinorrhea, Sore throat Cardiovascular: Denies: Chest pain, Palpitations Respiratory: Denies: Dyspnea, Cough, Dyspnea on exertion Gastrointestinal: Denies: Abdominal pain, Nausea, Vomiting, Diarrhea, Melena, Hematochezia Genitourinary: Denies: Dysuria, Hematuria, Frequency Musculoskeletal: Reports: Swelling, Extremity Pain. Denies: Back pain Skin: Reports: - - Dry skin of the feet. Denies: Rash, Wounds Neurological: Denies: Headache, Weakness, Numbness Physical Exam Vital Signs/Narrative: Vital Signs Temp Pulse Resp BP Pulse Ox 12/15/19 12:40 96.8 F L 71 16 133/69 H 99 Inital Vital Signs reviewed: Yes General: Well nourished, Well developed, No Acute Distress Head: Normocephalic, Atraumatic Eyes: Perrl, EOMI ENT: Moist mucous membranes, No rhinorrhea Neck: Supple, Nontender Cardiovascular: Regular rate, Regular rhythm, No murmurs Respiratory: No distress, CTA bilaterally, Chest nontender Abdomen: Soft, Nontender, Nondistended, Normal bowel sounds Back: Nontender, Normal Inspection Extremities: Edema - 1+ edema of the bilateral legs that is nonpitting. The dorsum of the right foot is tender to palpation particularly laterally along the fifth metatarsal. There is a mild area of erythema. Notes any breaks in the skin but there is a lot of dry skin. No significant warmth. No lymphangitic streaking. Skin: Normal color, No rash Neurological: Alert, Oriented x3, Cranial nerves II-XII grossly intact, Normal Strength, Normal Sensation Psychological: Normal affect, Normal Mood Diagnostic/Tx/Re-eval - Medical Decision Making Patient's white count is 9. ESR 14, CRP of 10. No DVT on duplex ultrasound of the leg. Foot x-rays were obtained and showed some soft tissue swelling and a plantar spur but otherwise negative. The area of erythema was outlined in surgical marker. We will place her on Keflex and have her follow-up with podiatry. She sees Dr. Yoder as mentioned above. ED Disposition - Plan for ED Patient: Disposition: Home or Assisted Living Diagnosis: Cellulitis of right foot Instructions: Cellulitis Prescriptions: Cephalexin [Keflex] 500 mg PO Q6 #40 cap Prescription Printed Referrals: Kristofer Yoder DPM [STAFF PHYSICIAN] - 2 Days for wound check
[2019-12-15 13:21] LABS: Erythrocyte Sedimentation Rate 14 mm/hr (0-30)
[2019-12-15 13:24] LABS: Absolute Lymphocyte Count 2.15 X10^3/uL (0.83-4.51); Absolute Neutrophil Count 6.2 X10^3/uL (2.0-7.7); Basophil% 1.1 % (0-1); Eosinophil# 0.23 X10^3/uL; Eosinophils% 2.4 % (0-5); Hematocrit 37.3 % (37-47); Hemoglobin 12.7 g/dL (12.0-15.0); Lymphocyte # 2.15 X10^3/ul (4.0); Lymphocyte % 22.9 % (19-41); Mean Corpuscular Hgb 31.1 pg (27.0-32.0); Mean Corpuscular Volume 91.2 fL (81-99); Mean Platelet Vol. 9.3 fl (6.2-12.0); Monocyte# 0.67 X10^3/uL; Monocyte% 7.1 % (0-10); NRBC Flagged by Analyzer 0 % (0-5); Neutrophil # 6.21 X10^3/uL (2.7-7.7); Neutrophil % 66.2 % (47-70); Platelet Count 313 K/mm3 (150-450); RBC Distribution Width CV 12.4 % (11.6-14.6); Red Blood Count 4.09 M/mm3 (4.2-5.4); White Blood Count 9.4 K/mm3 (4.4-11.0)
[2019-12-15 13:37] LABS: Anion Gap 3 (5-15); BUN 13 mg/dL (7-18); Calcium,Total 9.7 mg/dL (8.5-10.1); Chloride 106 mmol/L (98-107); Creatinine, Serum 0.87 mg/dL (0.55-1.02); EST Glomerular Filtration Rate 70 mL/min (>60); Est Glom Filt Rate - Afr Amer 85 mL/min (>60); Estimated Creatinine Clearance 56.17 ml/min; Glucose 85 mg/dL (74-106); Potassium 3.9 mmol/L (3.5-5.1); Sodium Level 139 mmol/L (136-145)
[2019-12-15 15:11] VITALS: BP 131/74; PULSE 62; RESP 15; O2SAT 98
== END 2019-12-15 15:12 | disposition home or self-care (01) ==
PROVIDERS: Emergency Provider Emergency Medicine; PCP Family Medicine Geriatric Medicine
DX: L03.115 Cellulitis of right lower limb (principal)
CPT/HCPCS: 73630; 80048; 85025; 85652; 86140; 93971; 99283; A4216

== ENCOUNTER → 2020-05-02 | Outpatient (CLI) | payer MEDICAID, SELFPAY ==
[2020-05-02 12:45] LABS: Absolute Lymphocyte Count 2.08 X10^3/uL (0.83-4.51); Absolute Neutrophil Count 3.6 X10^3/uL (2.0-7.7); Basophil# 0.08 X10^3/uL; Basophil% 1.2 % (0-1); Eosinophil# 0.27 X10^3/uL; Eosinophils% 4.1 % (0-5); Hemoglobin 12.3 g/dL (12.0-15.0); Lymphocyte # 2.08 X10^3/ul (4.0); Lymphocyte % 31.8 % (19-41); Mean Corp Hgb Conc 33.2 g/dL (32-36); Mean Corpuscular Hgb 30.9 pg (27.0-32.0); Monocyte# 0.48 X10^3/uL; Monocyte% 7.3 % (0-10); NRBC Flagged by Analyzer 0 % (0-5); Neutrophil % 55.1 % (47-70); Platelet Count 315 K/mm3 (150-450); RBC Distribution Width CV 13.1 % (11.6-14.6); RBC Distribution Width SD 44.4 fl (35.1-43.9); Red Blood Count 3.98 M/mm3 (4.2-5.4); White Blood Count 6.5 K/mm3 (4.4-11.0)
[2020-05-02 13:01] LABS: Vitamin D,25 Hydroxy 25.8 ng/mL
[2020-05-02 13:12] LABS: ALB/GLOB Ratio 0.9 RATIO (0.9-2.4); AST(SGOT) 33 U/L (15-37); Alanine Aminotransfer ALT/SGPT 49 U/L (13-56); Albumin, Serum 3.5 g/dL (3.2-5.0); Alkaline Phosphatase 117 U/L (45-117); Anion Gap 4 (5-15); BUN 12 mg/dL (7-18); BUN/Creat Ratio 15.2 RATIO (10-20); Calcium,Total 9.1 mg/dL (8.5-10.1); Chloride 106 mmol/L (98-107); Creatinine, Serum 0.79 mg/dL (0.55-1.02); EST Glomerular Filtration Rate 79 mL/min (>60); Est Glom Filt Rate - Afr Amer 95 mL/min (>60); Globulin 3.9 g/dL (2.2-4.2); Glucose 92 mg/dL (74-106); Potassium 4.4 mmol/L (3.5-5.1); Protein, Total 7.4 g/dL (6.4-8.2); Sodium Level 138 mmol/L (136-145); Thyroid Stim Hormone (TSH) 4.78 uIU/mL (0.358-3.74)
== END | disposition home or self-care (01) ==
LOC: POLAB3 09:29
PROVIDERS: PCP Family Medicine Geriatric Medicine; Visit Provider Family Medicine Geriatric Medicine
DX: E55.9 Vitamin D deficiency, unspecified (principal); R53.83 Other fatigue
CPT/HCPCS: 36415; 80053; 82306; 84443; 85025

== ENCOUNTER → 2020-06-13 09:08 | Outpatient (CLI) | payer MEDICAID, SELFPAY ==
[2020-06-13 11:35] LABS: Thyroid Stim Hormone (TSH) 0.67 uIU/mL (0.358-3.74)
== END ==
PROVIDERS: PCP Family Medicine Geriatric Medicine; Visit Provider Family Medicine Geriatric Medicine
DX: E03.9 Hypothyroidism, unspecified (principal)
CPT/HCPCS: 36415; 84443

== ENCOUNTER → 2020-10-24 13:11 | Outpatient (CLI) | payer MEDICAID, SELFPAY ==
[2020-10-24 13:37] LABS: Absolute Neutrophil Count 4.9 X10^3/uL (2.0-7.7); Basophil# 0.09 X10^3/uL; Basophil% 1.1 % (0-1); Eosinophil# 0.21 X10^3/uL; Eosinophils% 2.6 % (0-5); Hematocrit 36.4 % (37-47); Hemoglobin 12.5 g/dL (12.0-15.0); Lymphocyte % 28.1 % (19-41); Mean Corp Hgb Conc 34.3 g/dL (32-36); Mean Corpuscular Hgb 31.7 pg (27.0-32.0); Mean Corpuscular Volume 92.4 fL (81-99); Mean Platelet Vol. 9.6 fl (6.2-12.0); Monocyte# 0.64 X10^3/uL; Monocyte% 7.8 % (0-10); NRBC Flagged by Analyzer 0 % (0-5); Neutrophil # 4.91 X10^3/uL (2.7-7.7); Platelet Count 297 K/mm3 (150-450); RBC Distribution Width CV 13.2 % (11.6-14.6); RBC Distribution Width SD 43.5 fl (35.1-43.9); Red Blood Count 3.94 M/mm3 (4.2-5.4); White Blood Count 8.2 K/mm3 (4.4-11.0)
[2020-10-24 14:03] LABS: Vitamin D,25 Hydroxy 17.8 ng/mL
[2020-10-24 14:11] LABS: ALB/GLOB Ratio 0.9 RATIO (0.9-2.4); AST(SGOT) 20 U/L (15-37); Alanine Aminotransfer ALT/SGPT 43 U/L (13-56); Albumin, Serum 3.6 g/dL (3.2-5.0); Alkaline Phosphatase 127 U/L (45-117); Anion Gap 2 (5-15); BUN 15 mg/dL (7-18); BUN/Creat Ratio 20.4 RATIO (10-20); Calcium,Total 9.1 mg/dL (8.5-10.1); Chloride 109 mmol/L (98-107); Creatinine, Serum 0.74 mg/dL (0.55-1.02); EST Glomerular Filtration Rate 85 mL/min (>60); Est Glom Filt Rate - Afr Amer 103 mL/min (>60); Globulin 3.8 g/dL (2.2-4.2); Glucose 85 mg/dL (74-106); Potassium 4.2 mmol/L (3.5-5.1); Protein, Total 7.4 g/dL (6.4-8.2); Sodium Level 139 mmol/L (136-145)
== END ==
PROVIDERS: PCP Family Medicine Geriatric Medicine; Visit Provider Family Medicine Geriatric Medicine
DX: E55.9 Vitamin D deficiency, unspecified (principal); R53.83 Other fatigue
CPT/HCPCS: 36415; 80053; 82306; 84443; 85025

== ENCOUNTER → 2020-11-15 12:20 | Outpatient (CLI) | payer MEDICAID, SELFPAY ==
--- NOTE | 2020-11-15 12:21 | BI_ITS ---
MAMMOGRAPHY - BILATERAL SCREENING REASON FOR EXAM: Female, 59 years old. Routine annual screening examination. PERTINENT HISTORY: Non-contributory. Remote left excisional breast biopsy. TECHNIQUE: Digital bilateral breast skylar (3D mammographic acquisition) in the CC and MLO projections. 2-D mediolateral oblique (MLO) and craniocaudad (CC) views of both breasts were obtained. CAD: Full Field Digital Mammography with Computer Added Detection was performed. COMPARISON: Comparison is made with prior study dated 03/09/2019. FINDINGS: Breast Composition: There are scattered areas of fibroglandular density. There are no dominant masses or suspicious calcifications. Stable 7 mm x 8 mm well-defined nodule in the slightly upper medial deep left breast. Stable benign-appearing bilateral axillary lymph nodes. Surgical clips are seen in the left axillary region. No other significant abnormalities are identified. There has been no significant change since the prior study. BI/SCREEN MAMM (CAD) W/SKYLAR BILAT IMPRESSION: Stable bilateral screening mammogram. Yearly follow-up mammogram recommended. (A) ASSESSMENT CATEGORY: BIRADS Category 2: Benign. A letter regarding these results will be sent to the patient by the facility within 30 days. Approximately 10% of breast cancers are not detected by mammography. A normal mammogram should not delay biopsy of a clinically suspicious abnormality. [id number] Electronically Signed: Natanael Flaherty, at 14:04 EST , Service support ,
== END ==
PROVIDERS: PCP Family Medicine Geriatric Medicine; Referring Provider Family Medicine Geriatric Medicine; Visit Provider Family Medicine Geriatric Medicine
DX: Z12.31 Encounter for screening mammogram for malignant neoplasm of breast (principal)
CPT/HCPCS: 77063; 77067

== ENCOUNTER → 2020-11-18 11:33 | Outpatient (CLI) | payer MEDICAID, SELFPAY ==
--- NOTE | 2020-11-18 11:44 | RAD_ITS ---
STUDY: X-RAY CHEST REASON FOR EXAM: Female, 59 years old. asthma, tired, cough, SOB TECHNIQUE: PA and lateral views of the chest. COMPARISON: FINDINGS: Status post left axillary lymph node dissection. The lungs are clear and expanded. There is no demonstrated pleural abnormality. Normal size heart. Normal mediastinum and hitesh. Normal visualized pulmonary arteries. Normal visualized aortic arch and descending thoracic aorta. Normal visualized thoracic spine. Normal visualized ribs, clavicles, and shoulders. There is no demonstrated abnormality of the visualized soft tissue structures of the upper abdomen. RAD/Chest PA and Lateral IMPRESSION: No active disease. Electronically Signed: Ziggy Garcia MD at 16:54 EST Tel , Service support ,
[2020-11-18 12:43] LABS: Absolute Lymphocyte Count 2.73 X10^3/uL (0.83-4.51); Absolute Neutrophil Count 6.3 X10^3/uL (2.0-7.7); Basophil# 0.11 X10^3/uL; Basophil% 1.1 % (0-1); Eosinophil# 0.29 X10^3/uL; Eosinophils% 2.8 % (0-5); Hematocrit 39.7 % (37-47); Hemoglobin 13.1 g/dL (12.0-15.0); Lymphocyte # 2.73 X10^3/ul (4.0); Lymphocyte % 26.8 % (19-41); Mean Corpuscular Volume 91.1 fL (81-99); Mean Platelet Vol. 9.3 fl (6.2-12.0); Monocyte# 0.77 X10^3/uL; Monocyte% 7.6 % (0-10); NRBC Flagged by Analyzer 0 % (0-5); Neutrophil # 6.25 X10^3/uL (2.7-7.7); Neutrophil % 61.3 % (47-70); Platelet Count 348 K/mm3 (150-450); RBC Distribution Width CV 12.7 % (11.6-14.6); Red Blood Count 4.36 M/mm3 (4.2-5.4); White Blood Count 10.2 K/mm3 (4.4-11.0)
[2020-11-18 13:31] LABS: Anion Gap 3 (5-15); BUN 15 mg/dL (7-18); BUN/Creat Ratio 17.1 RATIO (10-20); Chloride 106 mmol/L (98-107); Creatinine, Serum 0.88 mg/dL (0.55-1.02); EST Glomerular Filtration Rate 70 mL/min (>60); Est Glom Filt Rate - Afr Amer 84 mL/min (>60); Ferritin 86 ng/mL (8-252); Glucose 87 mg/dL (74-106); Iron 79 ug/dL (50-170); Iron Binding Capacity,Total 427 ug/dL (250-450); Potassium 4.3 mmol/L (3.5-5.1); Sodium Level 138 mmol/L (136-145); Thyroid Stim Hormone (TSH) 1.05 uIU/mL (0.358-3.74)
== END ==
PROVIDERS: PCP Family Medicine Geriatric Medicine; Referring Provider Family Medicine Geriatric Medicine; Visit Provider Family Medicine Geriatric Medicine
DX: D64.9 Anemia, unspecified (principal); J45.909 Unspecified asthma, uncomplicated; R53.83 Other fatigue; R06.89 Other abnormalities of breathing
CPT/HCPCS: 36415; 71046; 80048; 82728; 83540; 83550; 84443; 85025; 87633; 87635; C9803; U0005; U0003

== ENCOUNTER → 2021-02-24 | Outpatient (CLI) | payer MEDICAID, SELFPAY | END | disposition home or self-care (01) | LOC: LABSPEC 16:10 | PROVIDERS: PCP Family Medicine Geriatric Medicine; Referring Provider Family Medicine Geriatric Medicine; Visit Provider Family Medicine Geriatric Medicine | DX: R06.89 Other abnormalities of breathing (principal) | CPT/HCPCS: 87635; C9803; U0002 ==

== ENCOUNTER → 2021-04-24 13:07 | Outpatient (CLI) | payer MEDICAID, SELFPAY ==
[2021-04-24 17:16] LABS: Absolute Lymphocyte Count 2.84 X10^3/uL (0.83-4.51); Absolute Neutrophil Count 5.1 X10^3/uL (2.0-7.7); Basophil% 1.1 % (0-1); Eosinophil# 0.18 X10^3/uL; Hematocrit 37.9 % (37-47); Hemoglobin 12.5 g/dL (12.0-15.0); Lymphocyte # 2.84 X10^3/ul (0.83-4.51); Lymphocyte % 31.2 % (19-41); Mean Corpuscular Hgb 30.8 pg (27.0-32.0); Mean Corpuscular Volume 93.3 fL (81-99); Mean Platelet Vol. 9.4 fl (6.2-12.0); Monocyte# 0.77 X10^3/uL; Monocyte% 8.5 % (0-10); NRBC Flagged by Analyzer 0 % (0-5); Neutrophil # 5.13 X10^3/uL (2.7-7.7); Neutrophil % 56.3 % (47-70); Platelet Count 340 K/mm3 (150-450); RBC Distribution Width CV 13.8 % (11.6-14.6); RBC Distribution Width SD 46.5 fl (35.1-43.9); Red Blood Count 4.06 M/mm3 (4.2-5.4); White Blood Count 9.1 K/mm3 (4.4-11.0)
[2021-04-24 17:35] LABS: ALB/GLOB Ratio 0.9 RATIO (0.9-2.4); AST(SGOT) 26 U/L (15-37); Alanine Aminotransfer ALT/SGPT 47 U/L (13-56); Albumin, Serum 3.4 g/dL (3.2-5.0); Alkaline Phosphatase 108 U/L (45-117); Anion Gap 9 (5-15); BUN 17 mg/dL (7-18); Calcium,Total 9.2 mg/dL (8.5-10.1); Chloride 103 mmol/L (98-107); EST Glomerular Filtration Rate 68 mL/min (>60); Est Glom Filt Rate - Afr Amer 82 mL/min (>60); Globulin 3.6 g/dL (2.2-4.2); Glucose 82 mg/dL (74-106); Potassium 4.4 mmol/L (3.5-5.1); Sodium Level 137 mmol/L (136-145); Thyroid Stim Hormone (TSH) 0.83 uIU/mL (0.358-3.74)
[2021-04-24 17:38] LABS: Vitamin D,25 Hydroxy 21.6 ng/mL
== END ==
PROVIDERS: PCP Family Medicine Geriatric Medicine; Visit Provider Family Medicine Geriatric Medicine
DX: E55.9 Vitamin D deficiency, unspecified (principal); R53.83 Other fatigue
CPT/HCPCS: 36415; 80053; 82306; 84443; 85025

== ENCOUNTER → 2021-11-01 13:40 | Outpatient (CLI) | payer MEDICAID, SELFPAY ==
[2021-11-01 15:04] LABS: Absolute Lymphocyte Count 2.37 X10^3/uL (0.83-4.51); Absolute Neutrophil Count 4.5 X10^3/uL (2.0-7.7); Basophil# 0.11 X10^3/uL; Basophil% 1.3 % (0-1); Eosinophil# 0.45 X10^3/uL; Eosinophils% 5.5 % (0-5); Hematocrit 35.9 % (37-47); Hemoglobin 12.1 g/dL (12.0-15.0); Lymphocyte # 2.37 X10^3/ul (0.83-4.51); Lymphocyte % 28.9 % (19-41); Mean Corp Hgb Conc 33.7 g/dL (32-36); Mean Corpuscular Hgb 30.3 pg (27.0-32.0); Mean Platelet Vol. 9.8 fl (6.2-12.0); Monocyte% 8.5 % (0-10); NRBC Flagged by Analyzer 0 % (0-5); Neutrophil # 4.54 X10^3/uL (2.7-7.7); Neutrophil % 55.3 % (47-70); Platelet Count 341 K/mm3 (150-450); RBC Distribution Width SD 42.5 fl (35.1-43.9); Red Blood Count 3.99 M/mm3 (4.2-5.4); White Blood Count 8.2 K/mm3 (4.4-11.0)
[2021-11-01 15:19] LABS: Vitamin D,25 Hydroxy 24.2 ng/mL
[2021-11-01 15:35] LABS: ALB/GLOB Ratio 0.9 RATIO (0.9-2.4); AST(SGOT) 24 U/L (15-37); Alanine Aminotransfer ALT/SGPT 38 U/L (13-56); Albumin, Serum 3.5 g/dL (3.2-5.0); Alkaline Phosphatase 107 U/L (45-117); Anion Gap 6 (5-15); BUN 9 mg/dL (7-18); BUN/Creat Ratio 12.1 RATIO (10-20); Calcium,Total 9.2 mg/dL (8.5-10.1); Chloride 106 mmol/L (98-107); Creatinine, Serum 0.74 mg/dL (0.55-1.02); EST Glomerular Filtration Rate 84 mL/min (>60); Est Glom Filt Rate - Afr Amer 101 mL/min (>60); Globulin 3.9 g/dL (2.2-4.2); Glucose 86 mg/dL (74-106); Potassium 4.1 mmol/L (3.5-5.1); Protein, Total 7.4 g/dL (6.4-8.2); Sodium Level 139 mmol/L (136-145)
== END ==
PROVIDERS: PCP Family Medicine Geriatric Medicine; Visit Provider Family Medicine Geriatric Medicine
DX: R53.83 Other fatigue (principal); E55.9 Vitamin D deficiency, unspecified
CPT/HCPCS: 36415; 80053; 82306; 84443; 85025

== ENCOUNTER → 2022-05-02 | Outpatient (CLI) | payer MEDICAID, SELFPAY ==
[2022-05-02 15:20] LABS: Hemoglobin 11.3 g/dL (12.0-15.0); Mean Corp Hgb Conc 32.3 g/dL (32-36); Mean Corpuscular Hgb 29.5 pg (27.0-32.0); Mean Corpuscular Volume 91.4 fL (81-99); Mean Platelet Vol. 9.6 fl (6.2-12.0); Platelet Count 358 K/mm3 (150-450); RBC Distribution Width CV 13.2 % (11.6-14.6); RBC Distribution Width SD 44.4 fl (35.1-43.9); Red Blood Count 3.83 M/mm3 (4.2-5.4); White Blood Count 7.3 K/mm3 (4.4-11.0)
[2022-05-02 15:48] LABS: Vitamin D,25 Hydroxy 22.6 ng/mL
[2022-05-02 16:13] LABS: ALB/GLOB Ratio 0.9 RATIO (0.9-2.4); AST(SGOT) 20 U/L (15-37); Alanine Aminotransfer ALT/SGPT 25 U/L (13-56); Albumin, Serum 3.6 g/dL (3.2-5.0); Alkaline Phosphatase 93 U/L (45-117); Anion Gap 10 (5-15); BUN 13 mg/dL (7-18); BUN/Creat Ratio 16.6 RATIO (10-20); Calcium,Total 9.4 mg/dL (8.5-10.1); Chloride 106 mmol/L (98-107); Creatinine, Serum 0.78 mg/dL (0.55-1.02); EST Glomerular Filtration Rate 79 mL/min (>60); Est Glom Filt Rate - Afr Amer 95 mL/min (>60); Globulin 3.9 g/dL (2.2-4.2); Glucose 96 mg/dL (74-106); Potassium 4.3 mmol/L (3.5-5.1); Protein, Total 7.5 g/dL (6.4-8.2); Sodium Level 139 mmol/L (136-145); Thyroid Stim Hormone (TSH) 0.56 uIU/mL (0.358-3.74)
[2022-05-03 09:37] LABS: Absolute Lymphocyte Count 1.94 X10^3/uL (0.83-4.51); Absolute Neutrophil Count 4.5 X10^3/uL (2.0-7.7); Basophil# 0.06 X10^3/uL; Basophil% 0.8 % (0-1); Eosinophil# 0.52 X10^3/uL; Eosinophils% 6.9 % (0-5); Lymphocyte # 1.94 X10^3/ul (0.83-4.51); Lymphocyte % 25.8 % (19-41); Monocyte% 6.6 % (0-10); NRBC Flagged by Analyzer 0 % (0-5); Neutrophil # 4.48 X10^3/uL (2.7-7.7); Neutrophil % 59.5 % (47-70)
== END | disposition home or self-care (01) ==
LOC: POLAB3 14:15
PROVIDERS: PCP Family Medicine Geriatric Medicine; Visit Provider Family Medicine Geriatric Medicine
DX: E55.9 Vitamin D deficiency, unspecified (principal); R53.83 Other fatigue
CPT/HCPCS: 36415; 80053; 82306; 84443; 85025; 85027

== ENCOUNTER → 2022-11-07 | Outpatient (CLI) | payer MEDICAID, SELFPAY ==
[2022-11-07 17:17] LABS: Absolute Lymphocyte Count 2.26 X10^3/uL (0.83-4.51); Absolute Neutrophil Count 5.1 X10^3/uL (2.0-7.7); Basophil# 0.09 X10^3/uL; Basophil% 1.1 % (0-1); Eosinophil# 0.37 X10^3/uL; Eosinophils% 4.4 % (0-5); Hematocrit 36.7 % (37-47); Lymphocyte # 2.26 X10^3/ul (0.83-4.51); Lymphocyte % 26.8 % (19-41); Mean Corp Hgb Conc 32.7 g/dL (32-36); Mean Corpuscular Hgb 29.6 pg (27.0-32.0); Mean Corpuscular Volume 90.6 fL (81-99); Mean Platelet Vol. 9.8 fl (6.2-12.0); Monocyte# 0.61 X10^3/uL; Monocyte% 7.2 % (0-10); NRBC Flagged by Analyzer 0 % (0-5); Neutrophil # 5.05 X10^3/uL (2.7-7.7); Platelet Count 328 K/mm3 (150-450); RBC Distribution Width CV 14.2 % (11.6-14.6); RBC Distribution Width SD 47.2 fl (35.1-43.9); Red Blood Count 4.05 M/mm3 (4.2-5.4); White Blood Count 8.4 K/mm3 (4.4-11.0)
[2022-11-07 17:47] LABS: ALB/GLOB Ratio 0.9 RATIO (0.9-2.4); AST(SGOT) 28 U/L (15-37); Alanine Aminotransfer ALT/SGPT 58 U/L (13-56); Albumin, Serum 3.5 g/dL (3.2-5.0); Alkaline Phosphatase 124 U/L (45-117); Anion Gap 7 (5-15); BUN 14 mg/dL (7-18); BUN/Creat Ratio 17.8 RATIO (10-20); Calcium,Total 9.1 mg/dL (8.5-10.1); Chloride 108 mmol/L (98-107); Creatinine, Serum 0.78 mg/dL (0.55-1.02); EST Glomerular Filtration Rate 79 mL/min (>60); Est Glom Filt Rate - Afr Amer 95 mL/min (>60); Globulin 3.8 g/dL (2.2-4.2); Glucose 90 mg/dL (74-106); Potassium 3.8 mmol/L (3.5-5.1); Protein, Total 7.3 g/dL (6.4-8.2); Sodium Level 139 mmol/L (136-145); Thyroid Stim Hormone (TSH) 1.42 uIU/mL (0.358-3.74)
== END | disposition home or self-care (01) ==
LOC: POLAB3 13:35
PROVIDERS: PCP Family Medicine Geriatric Medicine; Visit Provider Family Medicine Geriatric Medicine
DX: E55.9 Vitamin D deficiency, unspecified (principal)
CPT/HCPCS: 36415; 80053; 82306; 84443; 85025

== ENCOUNTER → 2022-12-27 | Outpatient (CLI) | payer MEDICAID, SELFPAY ==
--- NOTE | 2022-12-27 11:37 | BI_ITS ---
MAMMOGRAPHY - BILATERAL SCREENING REASON FOR EXAM: Female, 62 years old. Routine annual screening examination. PERTINENT HISTORY: Non-contributory. Remote left excisional breast biopsy. TECHNIQUE: Digital bilateral breast skylar (3D mammographic acquisition) in the CC and MLO projections. 2-D mediolateral oblique (MLO) and craniocaudad (CC) views of both breasts were obtained. CAD: Full Field Digital Mammography with Computer Added Detection was performed. COMPARISON: Comparison is made with prior study dated 11/15/2020 and 03/09/2019. FINDINGS: Breast Composition: There are scattered areas of fibroglandular density. There are no dominant masses or suspicious calcifications. The previously seen well-defined nodule in the slightly upper medial deep left breast in size presently measures 4 mm. Stable bilateral benign-appearing axillary lymph nodes. Surgical clips are seen in the left axilla. No other significant abnormalities are identified. There has been no significant change since the prior study. BI/SCRN MAMM (CAD)W/SKYLAR BILAT IMPRESSION: Stable bilateral screening mammogram. Yearly follow-up mammogram recommended. (A) ASSESSMENT CATEGORY: BIRADS Category 2: Benign. A letter regarding these results will be sent to the patient by the facility within 30 days. Approximately 10% of breast cancers are not detected by mammography. A normal mammogram should not delay biopsy of a clinically suspicious abnormality. [id number] Electronically Signed: Natanael Flaherty MD at 12:33 EST ,
== END | disposition home or self-care (01) ==
LOC: OPBI 11:45
PROVIDERS: PCP Family Medicine Geriatric Medicine; Referring Provider Family Medicine Geriatric Medicine; Visit Provider Family Medicine Geriatric Medicine
DX: Z12.31 Encounter for screening mammogram for malignant neoplasm of breast (principal)
CPT/HCPCS: 77063; 77067

== ENCOUNTER → 2023-05-09 | Outpatient (CLI) | payer MEDICAID, SELFPAY ==
[2023-05-09 15:08] LABS: Absolute Lymphocyte Count 2.23 X10^3/uL (0.83-4.51); Absolute Neutrophil Count 4.6 X10^3/uL (2.0-7.7); Basophil% 1.3 % (0-1); Eosinophil# 0.37 X10^3/uL; Eosinophils% 4.7 % (0-5); Hematocrit 37.9 % (37-47); Hemoglobin 12.4 g/dL (12.0-15.0); Lymphocyte # 2.23 X10^3/ul (0.83-4.51); Lymphocyte % 28.3 % (19-41); Mean Corp Hgb Conc 32.7 g/dL (32-36); Mean Corpuscular Hgb 30.6 pg (27.0-32.0); Mean Corpuscular Volume 93.6 fL (81-99); Mean Platelet Vol. 9.9 fl (6.2-12.0); Monocyte# 0.53 X10^3/uL; Monocyte% 6.7 % (0-10); NRBC Flagged by Analyzer 0 % (0-5); Neutrophil # 4.62 X10^3/uL (2.7-7.7); Neutrophil % 58.6 % (47-70); Platelet Count 315 K/mm3 (150-450); RBC Distribution Width CV 13.2 % (11.6-14.6); RBC Distribution Width SD 45.1 fl (35.1-43.9); Red Blood Count 4.05 M/mm3 (4.2-5.4); White Blood Count 7.9 K/mm3 (4.4-11.0)
[2023-05-09 15:29] LABS: ALB/GLOB Ratio 0.9 RATIO (0.9-2.4); AST(SGOT) 25 U/L (15-37); Alanine Aminotransfer ALT/SGPT 37 U/L (13-56); Albumin, Serum 3.4 g/dL (3.2-5.0); Alkaline Phosphatase 113 U/L (45-117); Anion Gap 6 (5-15); BUN 11 mg/dL (7-18); BUN/Creat Ratio 13.4 RATIO (10-20); Calcium,Total 8.8 mg/dL (8.5-10.1); Chloride 108 mmol/L (98-107); Cholesterol 268 mg/dL (200); Creatinine, Serum 0.82 mg/dL (0.55-1.02); EST Glomerular Filtration Rate 74 mL/min (>60); Est Glom Filt Rate - Afr Amer 90 mL/min (>60); Globulin 3.9 g/dL (2.2-4.2); Glucose 89 mg/dL (74-106); High Density Lipoprotein 43 mg/dL; Potassium 4.2 mmol/L (3.5-5.1); Protein, Total 7.3 g/dL (6.4-8.2); Sodium Level 140 mmol/L (136-145); Thyroid Stim Hormone (TSH) 1.39 uIU/mL (0.358-3.74); Triglycerides 250 mg/dL; Very Low Density Lipoprotein 50 mg/dL (5-40)
== END | disposition home or self-care (01) ==
LOC: POLAB3 13:23
PROVIDERS: PCP Family Medicine Geriatric Medicine; Visit Provider Family Medicine Geriatric Medicine
DX: R53.83 Other fatigue (principal)
CPT/HCPCS: 36415; 80053; 80061; 84443; 85025

== ENCOUNTER → 2023-06-15 | Outpatient (CLI) | payer MEDICAID, SELFPAY ==
--- NOTE | 2023-06-15 07:36 | MRI_ITS ---
EXAM: MR LEFT LOWER EXTREMITY WITHOUT INTRAVENOUS CONTRAST, ANKLE CLINICAL INDICATION: ACHILLES TENDOITIS TECHNIQUE: Multiplanar and multisequence MR images of the left ankle without intravenous contrast. COMPARISON: No relevant prior studies available. FINDINGS: LIGAMENTS: ANTERIOR TALOFIBULAR: Unremarkable. Intact. POSTERIOR TALOFIBULAR: Unremarkable. Intact. ANTERIOR TIBIOFIBULAR: Unremarkable. Intact. POSTERIOR TIBIOFIBULAR: Unremarkable. Intact. CALCANEOFIBULAR: Unremarkable. Intact. DELTOID: Unremarkable. Intact. SPRING: Unremarkable. Intact. LISFRANC: Unremarkable. Intact. TENDONS: ACHILLES: Unremarkable. Normal Achilles tendon. FLEXOR: Unremarkable. Intact. EXTENSOR: Unremarkable. Intact. PERONEAL: Unremarkable. Intact. TIBIALIS ANTERIOR: Unremarkable. Intact. TIBIALIS POSTERIOR: Unremarkable. Intact. MUSCLES: Unremarkable. Normal bulk and signal. FLUID: Small posterior subtalar joint effusion. SINUS TARSI: Unremarkable. Normal fat in the sinus tarsi. TARSAL TUNNEL: Unremarkable. PLANTAR FASCIA: Unremarkable. Intact. CARTILAGE: Unremarkable. No osteochondral lesion. Articular cartilage intact. BONES/JOINTS: Unremarkable. Talar dome intact. No fracture or marrow edema. OTHER SOFT TISSUES: Unremarkable. MRI/Lower Ext Joint Only (Routine) IMPRESSION: 1. Normal Achilles tendon 2. Small posterior subtalar joint effusion. 3. No other significant abnormality. Electronically Signed: Tyrone Holt MD at 21:14 EDT ,
== END | disposition home or self-care (01) ==
LOC: MRI 07:18
PROVIDERS: PCP Family Medicine Geriatric Medicine; Referring Provider Podiatrist; Visit Provider Podiatrist
DX: M76.62 Achilles tendinitis, left leg (principal)
CPT/HCPCS: 73721

== ENCOUNTER 2023-07-01 21:15 | Emergency (ER) | payer MEDICAID, SELFPAY ==
[2023-07-01 21:17] VITALS: BP 149/85; PULSE 121; RESP 19; TEMP 36.6; O2SAT 99; BMI 31.7
--- NOTE | 2023-07-01 22:16 | CT_ITS ---
INDICATION: tremor EXAMINATION: CT BRAIN - CT Head or Brain W/O Contrast Injection TECHNIQUE: Multiple axial images were obtained of the head without intravenous contrast. A radiation dose optimization technique was used for this scan. IV Contrast dosage and agent: None. RADIATION DOSAGE (If Supplied By Facility): CTDIvol = ( 44.99 ) mGy, DLP = ( 829.85 ) mGycm COMPARISON: None. FINDINGS: BRAIN: No acute bleed. No edema. Camacho-white matter differentiation is maintained. VENTRICLES AND SULCI: Not dilated. EXTRA-AXIAL: No hemorrhage, fluid collection, or mass. CALVARIUM / SKULL BASE: Unremarkable. FACE/SINUSES: Mucosal thickening in maxillary sinuses. SOFT TISSUES: Unremarkable. CT/Brain/Head without Contrast IMPRESSION: No acute abnormality. Electronically Signed: Estefani Kaur MD at 23:31 EDT ,
--- NOTE | 2023-07-01 22:17 | EKG12_ITS ---
Test Reason : Dysrhythmia Blood Pressure : / mmHG Vent. Rate : 121 BPM Atrial Rate : 121 BPM P-R Int : 132 ms QRS Dur : 082 ms QT Int : 344 ms P-R-T Axes : 035 016 227 degrees QTc Int : 488 ms Sinus tachycardia Nonspecific ST and T wave abnormality Abnormal ECG Confirmed by JORGE BRONSON, YUSUF ([id number]), non linear editor YNES ALVAREZ ([id number]) on 07/22/2023 2:20:07 PM Referred By: Confirmed By:GAETANO PATEL MD
--- NOTE | 2023-07-01 22:19 | EX.ED.DYSGE1 ---
HPI History of Present Illness Chief Complaint: Weakness Informant: patient and family Narrative Narrative: Presents with a concern for reaction to propanolol. This patient has a history of tremors of mostly upper extremities and of head since she was a teenager. She has been on atenolol for years. She was having more problems with tremors. Her neurologist switched her from atenolol to propanolol about a week ago. She took propanolol for 2 days. But after taking it she started to have multiple symptoms. She had headache. She gets these sometimes anyway. The headaches not the worst ever. It is just stable. It does not go away. But it is mild. She has had worsening of her tremors on the propanolol but then she stopped that and the tremors got worse again. She denies fevers or chills. She denies chest pain. She does admit to her heart racing. But she states she has a history of a very fast heart rate and that was one of the reasons she was on atenolol. Again, she has not had any beta-chris for about 4 days. She is not coughing or short of breath. No hemoptysis. No travel. She is eating and drinking and states that she ate and drank today. No trouble swallowing. No abdominal pain or diarrhea. No urinary symptoms. She has no myalgias or joint pain. She does have a sore left Achilles tendon that is been going off and on for some months. She uses a splint on this lower leg but the leg does not develop swelling or pain. Initially her son answered for her. But we had him stop so she could answer and then she actually told us the story reasonably well. I do note that she speaks quietly and slowly. She is tells me that sometimes she does this. [facility] Medical History Asthma Essential tremor Graves disease Tachycardia Home Medications albuterol sulfate 90 mcg/actuation aerosol inhaler (Ventolin HFA) 2 puff inhalation PRN PRN Sob &/Or Wheezing 12/10/17 [History Last Taken Unknown] loratadine 10 mg disintegrating tablet (Alavert) 10 mg PO DAILY 12/10/17 [History Last Taken Unknown] mometasone-formoterol HFA 200 mcg-5 mcg/actuation aerosol inhaler (Dulera) 2 puff inhalation BID 12/10/17 [History Last Taken Unknown] montelukast 10 mg tablet 10 mg PO DAILY 12/10/17 [History Last Taken Unknown] aspirin 81 mg tablet,delayed release (Aspir-Low) 81 mg PO DAILY 02/16/19 [History Last Taken Unknown] levothyroxine 88 mcg capsule 88 mcg PO DAILY 06/25/23 [History Last Taken Unknown] propranolol 60 mg capsule,24 hr,extended release 60 mg PO QAM #30 caps 06/25/23 [Rx Last Taken Unknown] Allergy/AdvReac Type Severity Reaction Status Date / Time Sulfa (Sulfonamide Allergy Severe Rash Verified 07/01/23 21:22 Antibiotics) Social History Smoking Status: Never smoker ROS ROS ED Constitutional Constitutional ED: Denies chills, fever(s), subjective or sweats Eyes Eyes: Denies blurry vision or change in vision ENT ENT ED: Denies ear pain, rhinorrhea or sore throat Cardiovascular Cardiovascular: Reports palpitations and racing heartbeat; Denies chest pain Respiratory/Chest Respiratory/Chest: Denies cough or dyspnea Gastrointestinal Gastrointestinal: Denies abdominal pain, diarrhea, nausea or vomiting Genitourinary Genitourinary ED: Denies dysuria or urinary frequency Musculoskeletal Musculoskeletal: Denies back pain, myalgias or neck pain Integumentary Denies rash Neurologic Neurologic: Reports headache(s); Denies paresthesias or weakness Psychiatric Psychiatric: Reports anxiety Endocrine Endocrinology: Denies polydipsia or polyuria Hematologic/Lymphatic Hematologic/Lymphatic: Denies easy bleeding, easy bruising or lymphadenopathy Allergic/Immunologic Allergic/Immunologic ED: Denies urticaria EXAM Physical Exam Narrative Exam Narrative: CONSTITUTIONAL: Patient is nontoxic in appearance. The patient looks comfortable. Work of breathing looks normal. HEENT: No notable trauma. Mucous membranes do look a little bit dry to me. No sinus tenderness. Oropharynx is clear. EYES: No conjunctival injection. No proptosis. No pain with range of motion. No pallor. Pupils are about 2 and half millimeters bilaterally equal and reactive. Range of motion of eyes are normal. Visual sloan are normal by confrontation. Patient does tend to just stare into space and make poor eye contact but there is no mechanical limitation of range of motion. NECK: No meningismus. No JVD. CARDIOVASCULAR: Tachycardic rate. Regular rhythm. No notable murmur. No JVD. The monitor shows her heart rates are running about 120-125. It does appear to be sinus. I see no ectopy. RESPIRATORY: No respiratory distress. No wheezes. No rhonchi. No rales. No pain with a deep breath. Breathing is very unlabored and saturations are normal at 99% on room air showing no hypoxia. GASTROINTESTINAL: Not distended. Bowel sounds are normal. No tenderness. No guarding. No rebound. No palpable mass. No bruit. GENITOURINARY: No tenderness over the bladder. No CVA tenderness. MUSCULOSKELETAL: Patient has a splint on her left ankle. But there is no calf swelling or tenderness. NEUROLOGICAL: Patient is alert and oriented. She speaks quietly and just a little bit slowly. But there is no dysarthria or aphasia. Her story is clear. Her NIH is 0. She can lift both legs. There is a global sense of weakness but she lifts them off the bed and can hold them for 5 seconds or more equally. Arms show no difficulty lifting. She does get a little bit of tremor when she holds her arms up. She states this is normal but a little bit worse than her baseline. SKIN: No noted rashes. No diaphoresis. No vesicles noted. No notable pallor. No jaundice. PSYCHIATRIC: Patient is calm. Affect is very flat. No flight of ideas. Const Vital Signs: 07/01/23 21:17 07/01/23 21:24 Temperature 98 F Temperature Source Temporal Pulse Rate 121 H Respiratory Rate 19 H Respiratory Effort Normal Non-Labored Blood Pressure 149/85 H Blood Pressure Mean 106 Pulse Ox 99 Oxygen Delivery Method Room Air MDM MDM MDM Narrative Medical decision making narrative: Patient is rechecked. She states now that she feels like she cannot swallow. She is very scared. She feels like she has to breathe very fast. She is breathing quickly. She seems very anxious. But this may be a response to her symptoms. When I listen to her lungs she is moving good air. I am not hearing wheezing. Her saturations are 98 to 100% on room air showing no hypoxia. Her heart rate is actually now down to 105. I am still pending a D-dimer. The rest of her work-up is overall negative. I will get a chest x-ray pending with her new symptoms of difficulties breathing. Patient CBC is overall normal. Patient's electrolytes are normal other than minimally low potassium. Patient's troponin is negative at 16 despite days of symptoms. I independent her potation the patient's CT scan of the head without contrast shows no bleed. I see no definite mass. There is some rotation. Final reading is pending. Final reading shows possible pneumonitis versus fluid. But patient's symptoms are resolved. She is not hypoxic. She does complain of a slight cough now. This might be as little pneumonitis or viral infection. But I do not think she needs diuretic or antibiotics. After giving her Ativan she feels markedly better. Her speech is faster and smoother. She is not having the other symptoms. I explained that it sounds like she was doing well until she switched from atenolol to propanolol. She then became tachycardic when she had no beta-blockers for 4 days. She will go back on the atenolol in the morning. She does have this at home and does not need a new prescription. Questions were answered and reasons for return discussed. Lab Data Attestation: I reviewed the patient's lab results. Labs: Laboratory Results - last 24 hr 07/01/23 07/01/23 22:30 23:00 WBC 9.3 RBC 4.05 L Hgb 12.4 Hct 36.8 L MCV 90.9 MCH 30.6 MCHC 33.7 RDW Std Deviation 41.9 RDW Coeff of Evelyn 12.7 Plt Count 298 MPV 9.4 Immature Gran % (Auto) 0.500 Neut % (Auto) 64.1 Lymph % (Auto) 22.8 [place] % (Auto) 8.7 Eos % (Auto) 2.8 Baso % (Auto) 1.1 H Absolute Neuts (auto) 5.9 Absolute Lymphs (auto) 2.12 Nucleated RBC % 0 D-Dimer Quant (PE/DVT) 0.89 H* Sodium 140 Potassium 3.4 L Chloride 109 H Carbon Dioxide 26.0 Anion Gap 5 BUN 11 Creatinine 0.86 Estim Creat Clear Calc 54.67 Est GFR (MDRD) Af Amer 86 Est GFR (MDRD) Non-Af 71 BUN/Creatinine Ratio 12.9 Glucose 109 H Calcium 9.1 Troponin I High Sens 16 Urine Color Yellow Urine Clarity Clear Urine pH 7.0 Ur Specific Brady 1.015 Urine Protein Negative Urine Glucose (UA) Normal Urine Ketones Negative Urine Occult Blood 10 H Urine Nitrite Negative Urine Bilirubin Negative Urine Urobilinogen Normal Ur Leukocyte Esterase 100 H Urine RBC 0 SEEN Urine WBC 0-5 SEEN Ur Squamous Epith Cells 0-5 SEEN Urine Bacteria RARE Urine Mucus 0 SEEN Radiography Diagnostic Testing: Clinical Impression(s) from Imaging Studies Brain CT 07/01/23 22:16 IMPRESSION: No acute abnormality. Electronically Signed: Estefani Kaur MD at 23:31 EDT , Chest CTA 07/01/23 23:24 IMPRESSION: No evidence of pulmonary emboli. Hazy lung opacities most likely mild edema, versus pneumonitis. Electronically Signed: Estefani Kaur MD at 0:29 EDT , EKG Initial EKG: Comments: Management interpretation the patient's EKG shows sinus rhythm with tachycardic rate at 121. There is baseline variation. But no ectopy. No acute ST elevation or depression. Just nonspecific diffuse ST and T wave changes. IL interval, QRS duration are normal. QTc is slightly long at 488 ms. Discharge Plan Triage Chief Complaint: Weakness ED Provider: Seng Mccann Dx/Rx/DC Orders Clinical Impression: Essential tremor, Anxiety, Adverse reaction to beta-chris Instructions: Essential Tremor (ET) Prescriptions: No Action levothyroxine 88 mcg capsule 88 mcg PO DAILY propranolol 60 mg capsule,extended release 24 hr 60 mg PO QAM Qty: 30 5RF loratadine [Alavert] 10 tablet,disintegrating 10 mg PO DAILY Patient Comments: montelukast 10 MG tablet 10 mg PO DAILY albuterol sulfate [Ventolin HFA] 108 HFA aerosol inhaler 2 puff inhalation PRN PRN (Reason: Sob &/Or Wheezing) Patient Comments: mometasone-formoterol [Dulera] 0 HFA aerosol inhaler 2 puff inhalation BID Patient Comments: aspirin [Aspir-Low] 81 MG tablet,delayed release (DR/EC) 81 mg PO DAILY Primary Care Provider: Gustavo Angeles Chi Referrals: Riaz Dominguez MD [Non-Staff -Ordering Privileges] - As soon as possible Gustavo Angeles Chi, MD [Primary Care Provider] - As Needed Disposition Disposition: Home, Self Care
[2023-07-01] MEDS: 0.9% Normal Saline 1,000 ML 1000 ML IV (22:39)
[2023-07-01] MEDS: Metoprolol Tartrate 5 MG/5 ML Vial IV (22:39)
[2023-07-01 22:56] LABS: Absolute Lymphocyte Count 2.12 X10^3/uL (0.83-4.51); Absolute Neutrophil Count 5.9 X10^3/uL (2.0-7.7); Basophil% 1.1 % (0-1); Eosinophil# 0.26 X10^3/uL; Eosinophils% 2.8 % (0-5); Hematocrit 36.8 % (37-47); Hemoglobin 12.4 g/dL (12.0-15.0); Lymphocyte # 2.12 X10^3/ul (0.83-4.51); Lymphocyte % 22.8 % (19-41); Mean Corp Hgb Conc 33.7 g/dL (32-36); Mean Corpuscular Hgb 30.6 pg (27.0-32.0); Mean Corpuscular Volume 90.9 fL (81-99); Mean Platelet Vol. 9.4 fl (6.2-12.0); Monocyte# 0.81 X10^3/uL; Monocyte% 8.7 % (0-10); NRBC Flagged by Analyzer 0 % (0-5); Neutrophil # 5.94 X10^3/uL (2.7-7.7); Neutrophil % 64.1 % (47-70); Platelet Count 298 K/mm3 (150-450); RBC Distribution Width CV 12.7 % (11.6-14.6); RBC Distribution Width SD 41.9 fl (35.1-43.9); Red Blood Count 4.05 M/mm3 (4.2-5.4); White Blood Count 9.3 K/mm3 (4.4-11.0)
[2023-07-01 23:00] VITALS: BP 139/67; PULSE 91; RESP 25; O2SAT 97
[2023-07-01 23:06] LABS: Mucous, Urine 0 SEEN /hpf (<or=2+); Red Blood Cells-Urine 0 SEEN /hpf (0-5)
[2023-07-01 23:14] LABS: Anion Gap 5 (5-15); BUN 11 mg/dL (7-18); BUN/Creat Ratio 12.9 RATIO (10-20); Calcium,Total 9.1 mg/dL (8.5-10.1); Chloride 109 mmol/L (98-107); Creatinine, Serum 0.86 mg/dL (0.55-1.02); EST Glomerular Filtration Rate 71 mL/min (>60); Est Glom Filt Rate - Afr Amer 86 mL/min (>60); Estimated Creatinine Clearance 54.67 ml/min; Glucose 109 mg/dL (74-106); Potassium 3.4 mmol/L (3.5-5.1); Sodium Level 140 mmol/L (136-145); Troponin-I HS 16 pg/mL (3.0-54.0)
[2023-07-01 23:22] LABS: D-Dimer Quantitative (DVT/PE) 0.89 FEU/ug/m (0.27-0.49)
--- NOTE | 2023-07-01 23:24 | CT_ITS ---
STUDY: CTA CHEST REASON FOR EXAM: Female, 62 years old. pe elevated d-dimer. Asthma. Graves'' disease. RADIATION DOSAGE (If Supplied By Facility): CTDIvol = ( 10.83 ) mGy, DLP = ( 474.54 ) mGycm TECHNIQUE: The examination was performed with the intravenous administration of IV 100mL Isovue-370. Post-processing of the angiographic images was performed, with multiplanar reformation and 3D reconstruction. Individualized dose optimization techniques were used for this CT. COMPARISON: FINDINGS: Image degradation from body habitus and position of the arms along the sides, and respiratory motion. LUNGS: Hazy opacities in the lungs most pronounced in the lower lungs, with slight septal thickening. No consolidation. PLEURA: No pleural effusion. No pneumothorax. PULMONARY VESSELS: No pulmonary emboli identified. MEDIASTINUM: A few prominent lymph nodes in the mediastinum and hilar regions. Small hiatal hernia. HEART: Not enlarged. AORTA/GREAT VESSELS: Thoracic aorta is normal caliber. No aneurysm or dissection. UPPER ABDOMEN: No acute findings. BONES/SOFT TISSUES: No acute findings. OTHER: None. CT/CTA Chest W/WO Contrast IMPRESSION: No evidence of pulmonary emboli. Hazy lung opacities most likely mild edema, versus pneumonitis. Electronically Signed: Estefani Kaur MD at 0:29 EDT ,
[2023-07-01] MEDS: LORazepam 2 MG/ML Syringe 1 MG IV (23:51)
[2023-07-02] VITALS: BP 136/63; PULSE 97; RESP 27; O2SAT 94
[2023-07-02 00:07] LABS: Color, Urine Yellow (Yellow); Glucose, Dipstick Normal (Normal); Ketone-Dipstick Negative (Negative); Leukocyte Esterase-Dipstick 100 /ul (Negative); Nitrite-Dipstick Negative (Negative); Occult Blood-Urine 10 /ul (Negative); Protein-Dipstick Negative (Negative); Specific Gravity, Urine 1.015 (1.002-1.030); Urine Bilirubin Dipstick Negative (Negative); Urine Clarity Clear (Clear); Urine Urobilinogen Normal (Normal)
[2023-07-02 00:20] LABS: Bacteria RARE /hpf (None Seen); Squamous Epithelial Cells - UA 0-5 SEEN /hpf (5-10); White Blood Cells 0-5 SEEN /hpf (0-5)
== END 2023-07-02 01:05 | disposition home or self-care (01) ==
PROVIDERS: Emergency Provider Emergency Medicine; PCP Family Medicine Geriatric Medicine; Visit Provider Emergency Medicine
DX: G25.0 Essential tremor (principal); R53.1 Weakness; R00.2 Palpitations; F41.9 Anxiety disorder, unspecified; R51.9 Headache, unspecified; T44.7X5A Adverse effect of beta-adrenoreceptor antagonists, initial encounter; J45.909 Unspecified asthma, uncomplicated; R06.09 Other forms of dyspnea
CPT/HCPCS: 70450; 71275; 80048; 81001; 84484; 85025; 85379; 93005; 96361; 96374; 96375; 99285; J7030; Q9967

== ENCOUNTER → 2023-09-11 | Outpatient (CLI) | payer MEDICAID, SELFPAY ==
[2023-09-11 17:57] LABS: Absolute Lymphocyte Count 2.93 X10^3/uL (0.83-4.51); Absolute Neutrophil Count 6.6 X10^3/uL (2.0-7.7); Basophil# 0.11 X10^3/uL; Eosinophil# 0.41 X10^3/uL; Eosinophils% 3.8 % (0-5); Hematocrit 40.2 % (37-47); Hemoglobin 12.9 g/dL (12.0-15.0); Lymphocyte # 2.93 X10^3/ul (0.83-4.51); Lymphocyte % 27.1 % (19-41); Mean Corp Hgb Conc 32.1 g/dL (32-36); Mean Corpuscular Hgb 29.9 pg (27.0-32.0); Mean Corpuscular Volume 93.3 fL (81-99); Mean Platelet Vol. 9.5 fl (6.2-12.0); Monocyte# 0.71 X10^3/uL; Monocyte% 6.6 % (0-10); NRBC Flagged by Analyzer 0 % (0-5); Neutrophil # 6.61 X10^3/uL (2.7-7.7); Neutrophil % 60.9 % (47-70); Platelet Count 351 K/mm3 (150-450); RBC Distribution Width CV 13.1 % (11.6-14.6); RBC Distribution Width SD 44.8 fl (35.1-43.9); Red Blood Count 4.31 M/mm3 (4.2-5.4); White Blood Count 10.8 K/mm3 (4.4-11.0)
[2023-09-11 18:06] LABS: Erythrocyte Sedimentation Rate 9 mm/hr (0-30)
[2023-09-11 18:13] LABS: Anion Gap 5 (5-15); BUN 20 mg/dL (7-18); BUN/Creat Ratio 21.8 RATIO (10-20); CRP 5.13 mg/L (0.0-3.0); Calcium,Total 9.4 mg/dL (8.5-10.1); Chloride 106 mmol/L (98-107); Creatinine, Serum 0.92 mg/dL (0.55-1.02); EST Glomerular Filtration Rate 65 mL/min (>60); Est Glom Filt Rate - Afr Amer 79 mL/min (>60); Glucose 104 mg/dL (74-106); Potassium 4.1 mmol/L (3.5-5.1); Sodium Level 139 mmol/L (136-145)
== END | disposition home or self-care (01) ==
LOC: POLAB3 17:07
PROVIDERS: PCP Family Medicine Geriatric Medicine; Visit Provider Family Medicine Geriatric Medicine
DX: I10 Essential (primary) hypertension (principal)
CPT/HCPCS: 36415; 80048; 85025; 85652; 86140

== ENCOUNTER → 2023-11-11 | Outpatient (CLI) | payer OTHER, MEDICAID, SELFPAY ==
[2023-11-11 10:49] LABS: Absolute Lymphocyte Count 2.45 X10^3/uL (0.83-4.51); Absolute Neutrophil Count 5.2 X10^3/uL (2.0-7.7); Basophil# 0.11 X10^3/uL; Basophil% 1.3 % (0-1); Eosinophil# 0.37 X10^3/uL; Eosinophils% 4.2 % (0-5); Hematocrit 38.1 % (37-47); Hemoglobin 12.4 g/dL (12.0-15.0); Lymphocyte # 2.45 X10^3/ul (0.83-4.51); Lymphocyte % 27.8 % (19-41); Mean Corp Hgb Conc 32.5 g/dL (32-36); Mean Corpuscular Hgb 30.1 pg (27.0-32.0); Mean Corpuscular Volume 92.5 fL (81-99); Mean Platelet Vol. 9.6 fl (6.2-12.0); Monocyte# 0.61 X10^3/uL; Monocyte% 6.9 % (0-10); NRBC Flagged by Analyzer 0 % (0-5); Neutrophil # 5.23 X10^3/uL (2.7-7.7); Neutrophil % 59.5 % (47-70); Platelet Count 343 K/mm3 (150-450); RBC Distribution Width CV 12.9 % (11.6-14.6); RBC Distribution Width SD 43.6 fl (35.1-43.9); Red Blood Count 4.12 M/mm3 (4.2-5.4); White Blood Count 8.8 K/mm3 (4.4-11.0)
[2023-11-11 11:01] LABS: ALB/GLOB Ratio 0.9 RATIO (0.9-2.4); AST(SGOT) 28 U/L (15-37); Alanine Aminotransfer ALT/SGPT 45 U/L (13-56); Albumin, Serum 3.4 g/dL (3.2-5.0); Alkaline Phosphatase 124 U/L (45-117); Anion Gap 6 (5-15); BUN 11 mg/dL (7-18); BUN/Creat Ratio 11.8 RATIO (10-20); Calcium,Total 8.9 mg/dL (8.5-10.1); Chloride 107 mmol/L (98-107); Cholesterol 263 mg/dL (200); Creatinine, Serum 0.93 mg/dL (0.55-1.02); EST Glomerular Filtration Rate 64 mL/min (>60); Est Glom Filt Rate - Afr Amer 78 mL/min (>60); Globulin 3.9 g/dL (2.2-4.2); Glucose 98 mg/dL (74-106); High Density Lipoprotein 43 mg/dL; Potassium 3.8 mmol/L (3.5-5.1); Protein, Total 7.3 g/dL (6.4-8.2); Sodium Level 139 mmol/L (136-145); Thyroid Stim Hormone (TSH) 3.49 uIU/mL (0.358-3.74); Triglycerides 232 mg/dL; Very Low Density Lipoprotein 46 mg/dL (5-40)
== END | disposition home or self-care (01) ==
LOC: POLAB3 09:56
PROVIDERS: PCP Family Medicine Geriatric Medicine; Visit Provider Family Medicine Geriatric Medicine
DX: I10 Essential (primary) hypertension (principal); E78.5 Hyperlipidemia, unspecified
CPT/HCPCS: 36415; 80053; 80061; 84443; 85025

== ENCOUNTER → 2023-11-14 | Outpatient (CLI) | payer MEDICARE, MEDICAID, SELFPAY ==
--- NOTE | 2023-11-14 08:19 | US_ITS ---
STUDY: ABDOMINAL ULTRASOUND - RIGHT UPPER QUADRANT REASON FOR VISIT: Female, 62 years old RUQ FAMILY HX FATTY LIVER TECHNIQUE: Ultrasound evaluation of the right upper quadrant was performed with real-time and static vásquez-scale imaging. TECHNICAL QUALITY: Adequate. COMPARISON: None. FINDINGS: Liver: The liver measures 12.7 cm. There is increased echogenicity consistent with fatty infiltration. The bile ducts are within normal limits. There is hepatic color flow. The direction of portal flow is hepatopetal. There is no demonstrated mass lesion. Gallbladder: Normal distended gallbladder. The gallbladder wall measures 3 mm. There is a negative sonographic Ortiz''s sign. There is no pericholecystic fluid. There are no gallstones. Common Bile Duct (C.B.D.): The common bile duct measures 4 mm. Pancreas: Normal size of the head, body and tail of the pancreas. There is normal echogenicity of the pancreas. There is no demonstrated pancreatic mass or cyst. Right Kidney: Normal size of the right kidney. The right kidney measures 9.9 cm x 4.7 cm x 3.9 cm. Normal renal cortex. The right cortex measures 1.1 cm. There is no demonstrated renal mass or cyst. There is no right hydronephrosis. US/Abdomen Limited IMPRESSION: Fatty infiltration of the liver. Electronically Signed: Natanael Flaherty MD at 15:20 EST ,
== END | disposition home or self-care (01) ==
PROVIDERS: PCP Family Medicine Geriatric Medicine; Visit Provider Family Medicine Geriatric Medicine
DX: K76.0 Fatty (change of) liver, not elsewhere classified (principal); Z83.79 Family history of other diseases of the digestive system
CPT/HCPCS: 76705

== ENCOUNTER → 2023-11-28 | Outpatient (CLI) | payer MEDICARE, MEDICAID, SELFPAY ==
--- NOTE | 2023-11-28 09:24 | US_ITS ---
STUDY: ABDOMINAL ULTRASOUND - ELASTOGRAPHY REASON FOR VISIT: Female, 63 years old. Fatty infiltration of the liver. TECHNIQUE: Liver stiffness measurements were obtained on a [employer] RS 85 ultrasound machine using a CA 1-7 probe following the U guidelines. 3 measurements were obtained using a 2-D-SWE method. TheIQR/M was 14% suggesting a quality data set. TECHNICAL QUALITY: Adequate. COMPARISON: Comparison is made with prior study dated November 14, 2023. FINDINGS: Liver: Fatty infiltration of the liver. Median liver stiffness measured 8.9 kPa. Abdomen: There is no demonstrated mass lesion. US/Elastography Parenchyma/Organ IMPRESSION: Liver stiffness measures 8.9 kPa compatible with F2-F3 (Mild to moderate liver fibrosis) Metavir score. Electronically Signed: Natanael Flaherty MD at 10:21 EST ,
== END | disposition home or self-care (01) ==
LOC: US 09:20
PROVIDERS: PCP Family Medicine Geriatric Medicine; Referring Provider Family Medicine Geriatric Medicine; Visit Provider Family Medicine Geriatric Medicine
DX: K76.0 Fatty (change of) liver, not elsewhere classified (principal)
CPT/HCPCS: 76981

== ENCOUNTER → 2023-12-30 | Outpatient (CLI) | payer MEDICARE, MEDICAID, SELFPAY ==
--- NOTE | 2023-12-30 11:50 | BI_ITS ---
MAMMOGRAPHY - BILATERAL SCREENING REASON FOR EXAM: Female, 63 years old. Routine annual screening examination. PERTINENT HISTORY: Non-contributory. Remote left excisional breast biopsy. TECHNIQUE: Digital bilateral breast skylar (3D mammographic acquisition) in the CC and MLO projections. 2-D mediolateral oblique (MLO) and craniocaudad (CC) views of both breasts were obtained. CAD: Full Field Digital Mammography with Computer Added Detection was performed. COMPARISON: Comparison is made with prior study dated December 27, 2022 and November 15, 2020. FINDINGS: Breast Composition: There are scattered areas of fibroglandular density. There are no dominant masses or suspicious calcifications. The patient is status post right axillary node dissection. Stable benign-appearing bilateral axillary nodes. Stable 4 mm well-defined nodule in the slightly upper medial deep left breast. No other significant abnormalities are identified. There has been no significant change since the prior study. BI/SCRN MAMM (CAD)W/SKYLAR BILAT IMPRESSION: Stable bilateral screening mammogram. Yearly follow-up mammogram recommended. (A) ASSESSMENT CATEGORY: BIRADS Category 2: Benign. A letter regarding these results will be sent to the patient by the facility within 30 days. Approximately 10% of breast cancers are not detected by mammography. A normal mammogram should not delay biopsy of a clinically suspicious abnormality. [id number] Electronically Signed: Natanael Flaherty MD at 12:45 EST ,
== END | disposition home or self-care (01) ==
LOC: OPBI 11:49
PROVIDERS: PCP Family Medicine Geriatric Medicine; Referring Provider Family Medicine Geriatric Medicine; Visit Provider Family Medicine Geriatric Medicine
DX: Z12.31 Encounter for screening mammogram for malignant neoplasm of breast (principal)
CPT/HCPCS: 77063; 77067

== ENCOUNTER → 2024-02-14 | Outpatient (CLI) | payer MEDICARE, MEDICAID, SELFPAY ==
--- NOTE | 2024-02-14 09:53 | ART_ITS ---
Reason For Study: PAOD Procedure A bilateral lower extremity continuous wave Doppler with analog waveform analysis and ankle brachial indexes. Left Segmental Pressures Left brachial= 124mmHg. Left posterior tibial artery = 149mmHg. Left dorsalis pedis artery = 127mmHg. The left dorsalis pedis waveforms are triphasic. The left posterior tibial artery waveforms are triphasic. Right Segmental Pressures Right brachial= 129mmHg. Right posterior tibial artery = 146mmHg. Right dorsalis pedis artery = 137mmHg. The right dorsalis pedis waveforms are triphasic. The right posterior tibial artery waveforms are triphasic. Indices The right ankle brachial index by the dorsalis pedis is 1.06. The right ankle brachial index by the posterior tibial artery is 1.13. The left ankle brachial index by the dorsalis pedis is 0.98. The left ankle brachial index by the posterior tibial artery is 1.16. VL/Ankle Brachial Index Interpretation Summary Triphasic Doppler waveforms are noted at ankle level bilaterally. Pulse-volume recordings appear satisfactory at ankle and digital levels bilaterally. Resting ankle-brachial in dices are normal bilaterally. There is no evidence of significant arterial occlusive disease in the lower ext remities bilaterally. Ordering Physician: Gustavo Angeles Chi Referring Physician: Gustavo Angeles Chi Performed By: Sabrina Adorno RVT
== END | disposition home or self-care (01) ==
LOC: CVS 09:52
PROVIDERS: PCP Family Medicine Geriatric Medicine; Referring Provider Family Medicine Geriatric Medicine; Visit Provider Family Medicine Geriatric Medicine
DX: I77.9 Disorder of arteries and arterioles, unspecified (principal); I73.9 Peripheral vascular disease, unspecified
CPT/HCPCS: 93922

== ENCOUNTER → 2024-05-20 | Outpatient (CLI) | payer MEDICARE, MEDICAID, SELFPAY ==
[2024-05-20 11:39] LABS: Absolute Lymphocyte Count 2.24 X10^3/uL (0.83-4.51); Absolute Neutrophil Count 5.3 X10^3/uL (2.0-7.7); Basophil# 0.11 X10^3/uL; Basophil% 1.2 % (0-1); Eosinophil# 0.44 X10^3/uL; Hematocrit 37.6 % (37-47); Hemoglobin 12.5 g/dL (12.0-15.0); Lymphocyte # 2.24 X10^3/ul (0.83-4.51); Lymphocyte % 25.3 % (19-41); Mean Corp Hgb Conc 33.2 g/dL (32-36); Mean Corpuscular Hgb 30.3 pg (27.0-32.0); Mean Platelet Vol. 9.2 fl (6.2-12.0); Monocyte# 0.72 X10^3/uL; Monocyte% 8.1 % (0-10); NRBC Flagged by Analyzer 0 % (0-5); Neutrophil % 59.8 % (47-70); Platelet Count 318 K/mm3 (150-450); RBC Distribution Width CV 13.1 % (11.6-14.6); RBC Distribution Width SD 42.8 fl (35.1-43.9); Red Blood Count 4.13 M/mm3 (4.2-5.4); White Blood Count 8.9 K/mm3 (4.4-11.0)
[2024-05-20 12:02] LABS: Vitamin D,25 Hydroxy 29.1 ng/mL
[2024-05-20 12:30] LABS: ALB/GLOB Ratio 0.9 RATIO (0.9-2.4); AST(SGOT) 26 U/L (15-37); Alanine Aminotransfer ALT/SGPT 35 U/L (13-56); Albumin, Serum 3.5 g/dL (3.2-5.0); Alkaline Phosphatase 124 U/L (45-117); Anion Gap 5 (5-15); BUN 16 mg/dL (7-18); Calcium,Total 9.2 mg/dL (8.5-10.1); Chloride 106 mmol/L (98-107); Cholesterol 248 mg/dL (200); Creatinine, Serum 0.94 mg/dL (0.55-1.02); EST Glomerular Filtration Rate 63 mL/min (>60); Est Glom Filt Rate - Afr Amer 77 mL/min (>60); Globulin 4.1 g/dL (2.2-4.2); Glucose 92 mg/dL (74-106); High Density Lipoprotein 42 mg/dL; Potassium 4.1 mmol/L (3.5-5.1); Protein, Total 7.6 g/dL (6.4-8.2); Sodium Level 138 mmol/L (136-145); Triglycerides 212 mg/dL; Very Low Density Lipoprotein 42 mg/dL (5-40)
== END | disposition home or self-care (01) ==
LOC: LAB 11:04
PROVIDERS: PCP Family Medicine Geriatric Medicine; Referring Provider Family Medicine Geriatric Medicine; Visit Provider Family Medicine Geriatric Medicine
DX: E78.5 Hyperlipidemia, unspecified (principal); I10 Essential (primary) hypertension; E55.9 Vitamin D deficiency, unspecified
CPT/HCPCS: 36415; 80053; 80061; 82306; 84443; 85025

== ENCOUNTER → 2024-06-10 | Outpatient (CLI) | payer MEDICARE, MEDICAID, SELFPAY ==
--- NOTE | 2024-06-10 10:07 | BD_ITS ---
STUDY: DUAL ENERGY X-RAY ABSORPTIOMETRY / DXA REASON FOR EXAM: Female, 63 years old. [id number] TECHNIQUE: Bone Mineral Density (BMD) measurements of lumbar spine and bilateral hips were obtained. COMPARISON: None. FINDINGS: Lumbar Spine (L1-L4): g/cm2 (1.104) / T-score (0.5) / Z-score (2.3) Findings are suggestive of normal bone density with a low fracture risk. Left Femur Total: g/cm2 (0.845) / T-score (-0.8) / Z-score (0.5) Left Femoral Neck: g/cm2 (0.703) / T-score (-1.3) / Z-score (0.2) Right Femur Total: g/cm2 (0.919) / T-score (-0.2) / Z-score (1.1) Right Femoral Neck: g/cm2 (0.683) / T-score (-1.5) / Z-score (0.0) BD/Dexa Bone Density Study IMPRESSION: The patient is considered osteopenic as outlined below according to World [place] Organization (WHO) criteria with a low fracture risk. Reference Information: The T-score is the number of standard deviations above or below the standard which is normal for young adults at their peak bone mineral density. The World Health Organization (WHO) interprets the T-scores as follows: Above -1 Normal bone density Between -1 and -2.5 Osteopenia Equal to / or below -2.5 Osteoporosis As a practical clinical guideline, osteopenia may be graded as follows: Mild -1 through -1.5 Moderate -1.6 through -2.0 Severe -2.1 through -2.4 The Z-score is the number of standard deviations above or below age-matched controls. A Z-score of less than -1.5 would be considered abnormal. References: 1. NIH Osteoporosis and Related Bone Diseases www osteo.org 2. International Society for Clinical Densitometry www iscd.org 3. National Osteoporosis Foundation www nof.org Electronically Signed: Natanael Flaherty MD at 9:42 EDT ,
== END | disposition home or self-care (01) ==
LOC: OPBD 10:05
PROVIDERS: PCP Family Medicine Geriatric Medicine; Referring Provider Family Medicine Geriatric Medicine; Visit Provider Family Medicine Geriatric Medicine
DX: Z78.0 Asymptomatic menopausal state (principal)
CPT/HCPCS: 77080

== ENCOUNTER → 2024-07-07 | Outpatient (CLI) | payer MEDICARE, MEDICAID, SELFPAY | END | disposition home or self-care (01) | LOC: LAB 08:59 | PROVIDERS: PCP Family Medicine Geriatric Medicine; Referring Provider Family Medicine Geriatric Medicine; Visit Provider Family Medicine Geriatric Medicine | DX: R53.83 Other fatigue (principal) | CPT/HCPCS: 36415; 84443 ==

== ENCOUNTER → 2024-11-18 | Outpatient (CLI) | payer MEDICARE, MEDICAID, SELFPAY ==
[2024-11-18 13:01] LABS: Absolute Lymphocyte Count 2.28 X10^3/uL (0.83-4.51); Absolute Neutrophil Count 5.3 X10^3/uL (2.0-7.7); Basophil# 0.13 X10^3/uL; Basophil% 1.5 % (0-1); Eosinophil# 0.35 X10^3/uL; Hemoglobin 12.6 g/dL (12.0-15.0); Lymphocyte # 2.28 X10^3/ul (0.83-4.51); Lymphocyte % 26.2 % (19-41); Mean Corp Hgb Conc 33.2 g/dL (32-36); Mean Corpuscular Hgb 29.6 pg (27.0-32.0); Mean Corpuscular Volume 89.2 fL (81-99); Mean Platelet Vol. 9.2 fl (6.2-12.0); Monocyte# 0.58 X10^3/uL; Monocyte% 6.7 % (0-10); NRBC Flagged by Analyzer 0 % (0-5); Neutrophil # 5.34 X10^3/uL (2.7-7.7); Neutrophil % 61.3 % (47-70); Platelet Count 380 K/mm3 (150-450); RBC Distribution Width CV 13.2 % (11.6-14.6); Red Blood Count 4.26 M/mm3 (4.2-5.4); White Blood Count 8.7 K/mm3 (4.4-11.0)
[2024-11-18 13:25] LABS: Vitamin D,25 Hydroxy 18.8 ng/mL
[2024-11-18 13:36] LABS: ALB/GLOB Ratio 0.9 RATIO (0.9-2.4); AST(SGOT) 23 U/L (15-37); Alanine Aminotransfer ALT/SGPT 42 U/L (13-56); Albumin, Serum 3.7 g/dL (3.2-5.0); Alkaline Phosphatase 129 U/L (45-117); Anion Gap 5 (5-15); BUN 11 mg/dL (7-18); BUN/Creat Ratio 11.5 RATIO (10-20); Calcium,Total 9.1 mg/dL (8.5-10.1); Chloride 104 mmol/L (98-107); Cholesterol 267 mg/dL (200); Creatinine, Serum 0.96 mg/dL (0.55-1.02); EST Glomerular Filtration Rate 62 mL/min (>60); Est Glom Filt Rate - Afr Amer 75 mL/min (>60); Glucose 95 mg/dL (74-106); High Density Lipoprotein 57 mg/dL; Potassium 4.3 mmol/L (3.5-5.1); Protein, Total 7.7 g/dL (6.4-8.2); Sodium Level 136 mmol/L (136-145); Triglycerides 234 mg/dL; Very Low Density Lipoprotein 47 mg/dL (5-40)
== END | disposition home or self-care (01) ==
LOC: POLAB3 12:43
PROVIDERS: PCP Family Medicine Geriatric Medicine; Visit Provider Family Medicine Geriatric Medicine
DX: I10 Essential (primary) hypertension (principal); E55.9 Vitamin D deficiency, unspecified; E78.5 Hyperlipidemia, unspecified
CPT/HCPCS: 36415; 80053; 80061; 82306; 84443; 85025

== ENCOUNTER → 2024-12-15 | Outpatient (CLI) | payer MEDICARE, SELFPAY | END | disposition home or self-care (01) | LOC: RAD 12:18 | PROVIDERS: PCP Family Medicine Geriatric Medicine; Referring Provider Family Medicine Geriatric Medicine; Visit Provider Family Medicine Geriatric Medicine | DX: R13.10 Dysphagia, unspecified (principal) | CPT/HCPCS: 74230 ==

== ENCOUNTER → 2024-12-16 | Outpatient (CLI) | payer MEDICARE, SELFPAY ==
--- NOTE | 2024-12-15 13:30 | ST.MBS ---
Modified Barium Swallow Patient Information Study Date: 12/15/24 Study Time: 12:45 Direct Billable Minutes: 105 Total Minutes procedure & reportin Diagnosis: Dysphagia R13.10 Referring Physician: Gustavo Angeles Chi Reason for Referral: Objectively assess swallow function, assess risk for aspiration, and determine recommendations for least restrictive diet textures and compensatory strategies to improve safety of swallow. Medical History: PMH: Tremor, Grave's disease, Asthma, Tachycardia. Pt reports difficulty swallowing for over a year characterized by coughing after eating food, then vomiting. She reports this happens daily at almost every meal. She tries to drink liquids, but this does not help. She reports no trouble swallowing liquids. She feels her swallowing problem is becoming worse. She denies odynophagia. Current Diet Ordered: Regular textures / Thin liquids Dentition: Natural Teeth and Missing Teeth (No upper dentition) Mental Status: WNL Respiratory Status: Oxygenating on Room Air Penetration-Aspiration Scale Penetration-Aspiration Scale: OBJECTIVE ASSESSMENT OF SWALLOW FUNCTION (QUANTITATIVE ? PER TRIAL): PENETRATION / ASPIRATION SCALE (FLORES): 1 = does not enter airway 2 = enters airway/above vocal folds/ejected 3 = enters airway/above vocal folds/not ejected 4 = enters airway/contacts vocal folds/ejected 5 = enters airway/contacts vocal folds/not ejected 6 = enters airway/below vocal folds/ejected 7 = enters airway/below vocal folds/not ejected despite effort 8 = enters airway/below vocal folds/no effort VIDEOFLOROSCOPIC SCALE SCORE (FLORES): Grade I = aspiration of material that has penetrated into the laryngeal vestibule, intact cough reflex Grade II = aspiration < 10 % of the bolus, intact cough reflex Grade III = aspiration of < 10 % of the bolus, reduced cough reflex or aspiration of > 10 % of the bolus, intact cough reflex Grade IV = aspiration of > 10 % of the bolus, reduced cough reflex Penetration-Aspiration Scale Score Thin Liquid via teaspoon: Result: 1= does not enter airway Thin Liquid via teaspoon Trial 2: Result: 1= does not enter airway Thin Liquid via small single sip: cup: Result: 1= does not enter airway Thin Liquid via sequential sips: cup: Result: 1= does not enter airway [place] Thick Liquid via small single sip: cup: Result: 1= does not enter airway Comment: Pt had hoarseness and breathiness to voice at baseline; however, after this trial, vocal quality sounded more strangled and was aphonic for the remainder of the evaluation. Pt denied trouble breathing. She reported sensation of something stuck. Esophageal screen - Complete clearance of barium. Pudding via teaspoon: Result: 1= does not enter airway Comment: Esophageal screen - Retention of barium throughout the esophagus. Thin Liquid via single sip: straw: Result: 1= does not enter airway Comment: Esophageal screen - Liquid wash somewhat cleared residues of previous trial in esophagus, but barium still remained. Trace retention of thin barium in upper esophagus. 1/2 Cookie: Result: 1= does not enter airway Comment: Esophageal screen - Complete clearance. Oral Phase Labial Seal: Interlabial escape, no progression to anterior lip Tongue Control During Bolus Hold: Posterior escape of less than half of bolus Bolus Preparation/Mastication: Slow prolonged chewing/mashing with complete recollection Bolus Transport/Lingual Motion: Delayed initiation of tongue motion Oral Residue: Residue collection on oral structures Pharyngeal Phase Initiation of Pharyngeal Swallow: Bolus head in pyriforms Soft Palate Elevation: Trace column of contrast/air between soft palate and pharyngeal wall Laryngeal Elevation: Comp. Superior move thyroid cart w/comp. apprx arytenoid cart-epig pet Anterior Hyoid Excursion: Partial anterior movement Epiglottic Movement: Complete inversion Laryngeal Vestibule Closure at Height of Swallow: Complete; no air/contrast in laryngeal vestibule Pharyngeal Stripping Wave: Present - complete Pharyngoesophageal Segment Opening: Complete distension and complete duration; no obstruction of flow Tongue Base Retraction: Trace column of contrast between tongue base & post. pharyngeal wall Pharyngeal Residue: Trace residue within or on pharyngeal structures Esophageal Phase Esophageal Clearance: Esophageal retention Diagnosis/Impression Diagnosis: Oropharyngeal swallow grossly WNL; Esophageal dysphagia R13.14 Impression: Oropharyngeal swallow function grossly WNL. Mild delay w/ initiation of tongue motion for A-P transport and posterior loss of bolus to the pyriforms w/ sequential thin. Complete airway closure during the swallow w/ no laryngeal penetration or aspiration. Good pharyngeal clearance despite pt sensing pharyngeal retention. The esophageal phase is primarily marked by... -Retention of pudding throughout esophagus, which somewhat cleared w/ liquid wash. -Trace/minimal retention of liquids in upper esohagus. Recommendations Diet: Regular Textures and Thin Liquids Comment: If sensation of retention, reflux, or regurgitation despite alternating bites/sips, stop and resume meal at a later time. Consider smaller, more frequent meals (4-5 smaller meals daily). Compensatory Strategies: Small Bites, Small Sips, Slow Rate, Alternate bites/solids and sips/liquids, Sitting upright and Remain sitting upright for 30 minutes after PO intake Recommend Repeat Modified Barium Swallow: No Need for Skilled Speech Therapy Services: Yes Comment: Oropharyngeal swallow function appears grossly WNL; however, will recommend patient for Fiberoptic Endoscopic Evaluation of Swallowing (FEES) due to vocal changes (aphonic and strangled) w/ oral intake during MBSS. Recommended Referrals: GI Consult and ENT Consult Education Completed: 1. Described result of evaluation. Status Active ST Patient: Active Contact Information [facility] Speech Therapy:: Venus Cutler M.A. CCC-NARROW FABRIC CALENDERER? Speech-Language Pathologist?? [facility] [address] [place] [address]? [email or web address]?? [phone]
--- NOTE | 2024-12-16 08:12 | RAD_ITS ---
EXAM: ESOPHAGUS DUAL CONTRAST CLINICAL HISTORY: 1 year history of cough during ingestion of liquids. COMPARISON: None. TECHNIQUE: The patient ingested barium. A double-contrast esophagram was obtained. FINDINGS: The esophagus is unremarkable. No evidence of obstruction. No mass lesion is seen. No evidence of gastroesophageal reflux. The patient ingested a 12 mm tablet the barium. The tablet is trapped at the gastroesophageal junction. RAD/Esophagus Dual Contrast IMPRESSION: The ingested 12 mm tablet the barium is trapped at the gastroesophageal junctio n. No evidence of gastroesophageal reflux. Reading Location: [place] [address]
== END | disposition home or self-care (01) ==
LOC: RAD 08:12
PROVIDERS: PCP Family Medicine Geriatric Medicine; Referring Provider Family Medicine Geriatric Medicine; Visit Provider Family Medicine Geriatric Medicine
DX: R13.10 Dysphagia, unspecified (principal)
CPT/HCPCS: 74221; 92611

== ENCOUNTER → 2024-12-31 | Outpatient (CLI) | payer MEDICARE, MEDICAID, SELFPAY ==
--- NOTE | 2024-12-31 09:57 | BI_ITS ---
PROCEDURE: SCRN MAMM (CAD)W/SKYLAR BILAT REASON FOR EXAM: F, Age 64 y/o, no family history. Routine follow-up. Left axillary node resection. TECHNIQUE: Bilateral screening digital breast tomosynthesis with 2D and 3D images. Computer aided detection. COMPARISON: Prior exam(s) dating back to December 30, 2023.. FINDINGS: There are scattered areas of fibroglandular density. Stable bilateral fat containing axillary lymph nodes. Surgical clips are once again seen in the left axilla. No suspicious masses, areas of developing architectural distortion, or suspicious calcifications. BI/SCRN MAMM (CAD)W/SKYLAR BILAT IMPRESSION: BI-RADS 2: BENIGN. RECOMMEND ANNUAL MAMMOGRAPHIC SCREENING. Follow-up code: Routine Follow-up The patient will be notified of the results by letter. Reading Location: [id number]
== END | disposition home or self-care (01) ==
LOC: OPBI 09:56
PROVIDERS: PCP Family Medicine Geriatric Medicine; Referring Provider Family Medicine Geriatric Medicine; Visit Provider Family Medicine Geriatric Medicine
DX: Z12.31 Encounter for screening mammogram for malignant neoplasm of breast (principal)
CPT/HCPCS: 77063; 77067

== ENCOUNTER → 2025-01-15 | Outpatient (CLI) | payer MEDICARE, MEDICAID, SELFPAY ==
--- NOTE | 2025-01-15 08:24 | US_ITS ---
PROCEDURE: ABD LIMITED W/ ELASTOGRAPHY (USABDLELPARO), 01/15/2025 REASON FOR EXAM: FATTY LIVER COMPARISON: None TECHNIQUE: Grayscale and color Doppler imaging of the right upper quadrant was performed. 1Ring S-shear wave elastography was performed for non-invasive assessment of liver tissue stiffness. FINDINGS: Exam is slightly limited by shadowing bowel gas and reportedly by small sonographic windows available for intercostal scanning. Liver: Echogenic and mildly heterogeneous. 12.5 cm in length. Gallbladder: Unremarkable. Reportedly, sonographic Ortiz's was negative. Biliary tree: Unremarkable. CBD measures 3 mm. Pancreas: Partially obscured by shadowing bowel gas, grossly unremarkable as visualized. Right kidney: Unremarkable. 9.2 cm in length. Other: No visualized free fluid. Hepatic elastography: Number of measurements: 5 US probe: CA 1-7A EQI median: 10.7 kPa EQI median velocity: 1.88 m/s IQR/Med: 9.3% (kPa) and 4.3% (m/s). If the IQR/Med is IQR/median >30% (for kPa) or >15% in m/s, the variance in the measurements is a large and the accuracy of the measurement may be in question.
== END | disposition home or self-care (01) ==
PROVIDERS: PCP Family Medicine Geriatric Medicine
DX: R13.10 Dysphagia, unspecified (principal); K76.0 Fatty (change of) liver, not elsewhere classified
CPT/HCPCS: 76705; 76981

== ENCOUNTER 2025-01-18 10:00 | Outpatient (RCR) | payer MEDICARE, MEDICAID, SELFPAY ==
--- NOTE | 2024-12-25 10:34 | ST ---
[facility] Speech Pathology [address] [place] [address] Modified Barium Swallow Study MR#: [id number] Name: EIL MORALES : 1960 64 From: Venus Cutler M.A., [facility]-PHOTO MANAGER Modified Barium Swallow Patient Information Study Date: 12/15/24 Study Time: 12:45 Direct Billable Minutes: 105 Total Minutes procedure & reportin Diagnosis: Dysphagia R13.10 Referring Physician: Gustavo Angeles Chi Reason for Referral: Objectively assess swallow function, assess risk for aspiration, and determine recommendations for least restrictive diet textures and compensatory strategies to improve safety of swallow. Medical History: PMH: Tremor, Grave's disease, Asthma, Tachycardia. Pt reports difficulty swallowing for over a year characterized by coughing after eating food, then vomiting. She reports this happens daily at almost every meal. She tries to drink liquids, but this does not help. She reports no trouble swallowing liquids. She feels her swallowing problem is becoming worse. She denies odynophagia. Current Diet Ordered: Regular textures / Thin liquids Dentition: Natural Teeth and Missing Teeth (No upper dentition) Mental Status: WNL Respiratory Status: Oxygenating on Room Air Penetration-Aspiration Scale Penetration-Aspiration Scale: OBJECTIVE ASSESSMENT OF SWALLOW FUNCTION (QUANTITATIVE ? PER TRIAL): PENETRATION / ASPIRATION SCALE (FLORES): 1 = does not enter airway 2 = enters airway/above vocal folds/ejected 3 = enters airway/above vocal folds/not ejected 4 = enters airway/contacts vocal folds/ejected 5 = enters airway/contacts vocal folds/not ejected 6 = enters airway/below vocal folds/ejected 7 = enters airway/below vocal folds/not ejected despite effort 8 = enters airway/below vocal folds/no effort VIDEOFLOROSCOPIC SCALE SCORE (FLORES): Grade I = aspiration of material that has penetrated into the laryngeal vestibule, intact cough reflex Grade II = aspiration < 10 % of the bolus, intact cough reflex Grade III = aspiration of < 10 % of the bolus, reduced cough reflex or aspiration of > 10 % of the bolus, intact cough reflex Grade IV = aspiration of > 10 % of the bolus, reduced cough reflexPenetration-Aspiration Scale Score Thin Liquid via teaspoon: Result: 1= does not enter airway Thin Liquid via teaspoon Trial 2: Result: 1= does not enter airway Thin Liquid via small single sip: cup: Result: 1= does not enter airway Thin Liquid via sequential sips: cup: Result: 1= does not enter airway [place] Thick Liquid via small single sip: cup: Result: 1= does not enter airway Comment: Pt had hoarseness and breathiness to voice at baseline; however, after this trial, vocal quality sounded more strangled and was aphonic for the remainder of the evaluation. Pt denied trouble breathing. She reported sensation of something stuck. Esophageal screen - Complete clearance of barium. Pudding via teaspoon: Result: 1= does not enter airway Comment: Esophageal screen - Retention of barium throughout the esophagus. Thin Liquid via single sip: straw: Result: 1= does not enter airway Comment: Esophageal screen - Liquid wash somewhat cleared residues of previous trial in esophagus, but barium still remained. Trace retention of thin barium in upper esophagus. 11/05 Cookie: Result: 1= does not enter airway Comment: Esophageal screen - Complete clearance. Oral Phase Labial Seal: Interlabial escape, no progression to anterior lip Tongue Control During Bolus Hold: Posterior escape of less than half of bolus Bolus Preparation/Mastication: Slow prolonged chewing/mashing with complete recollection Bolus Transport/Lingual Motion: Delayed initiation of tongue motion Oral Residue: Residue collection on oral structures Pharyngeal Phase Initiation of Pharyngeal Swallow: Bolus head in pyriforms Soft Palate Elevation: Trace column of contrast/air between soft palate and pharyngeal wall Laryngeal Elevation: Comp. Superior move thyroid cart w/comp. apprx arytenoid cart-epig pet Anterior Hyoid Excursion: Partial anterior movement Epiglottic Movement: Complete inversion Laryngeal Vestibule Closure at Height of Swallow: Complete; no air/contrast in laryngeal vestibule Pharyngeal Stripping Wave: Present - complete Pharyngoesophageal Segment Opening: Complete distension and complete duration; no obstruction of flow Tongue Base Retraction: Trace column of contrast between tongue base & post. pharyngeal wall Pharyngeal Residue: Trace residue within or on pharyngeal structures Esophageal Phase Esophageal Clearance: Esophageal retention Diagnosis/Impression Diagnosis: Oropharyngeal swallow grossly WNL; Esophageal dysphagia R13.14 Impression: Oropharyngeal swallow function grossly WNL. Mild delay w/ initiation of tongue motion for A-P transport and posterior loss of bolus to the pyriforms w/ sequential thin. Complete airway closure during the swallow w/ no laryngeal penetration or aspiration. Good pharyngeal clearance despite pt sensing pharyngeal retention. The esophageal phase is primarily marked by... -Retention of pudding throughout esophagus, which somewhat cleared w/ liquid wash. -Trace/minimal retention of liquids in upper esohagus. Recommendations Diet: Regular Textures and Thin Liquids Comment: If sensation of retention, reflux, or regurgitation despite alternating bites/sips, stop and resume meal at a later time. Consider smaller, more frequent meals (4-5 smaller meals daily). Compensatory Strategies: Small Bites, Small Sips, Slow Rate, Alternate bites/solids and sips/liquids, Sitting upright and Remain sitting upright for 30 minutes after PO intake Recommend Repeat Modified Barium Swallow: No Need for Skilled Speech Therapy Services: Yes Comment: Oropharyngeal swallow function appears grossly WNL; however, will recommend patient for Fiberoptic Endoscopic Evaluation of Swallowing (FEES) due to vocal changes (aphonic and strangled) w/ oral intake during MBSS. Recommended Referrals: GI Consult and ENT Consult Education Completed: 1. Described result of evaluation. Status Active ST Patient: Active Contact Information [facility] Speech Therapy:: Venus Cutler M.A. CCC-PHOTO MANAGER? Speech-Language Pathologist?? [facility] [address] [place] [address]? [email or web address]?? [phone] 12/15/24 1620 <Electronically signed by Venus Cutler M.A., CCC-PHOTO MANAGER>
--- NOTE | 2024-12-25 11:55 | HP.SP.EV_ITS ---
Visit History Visit Info Date of Eval: 12/25/24 Visit: 1 It Risk Analyst: DEVEN History Attending Doctor: Referring Doctor: Reason for Referral: DYSPHAGIA. RX HERE Medical Diagnosis: Dysphagia Date of Onset of Diagnosis: 6 months ago Previous speech therapy: No Other Relevant Medical History/Diagnoses/Surgery: asthma, chronic fatigue. Patient reported that she coughs often, sometimes to the point of vomiting during eating. Every meal she has to stop eating due to feeling fullness at the top of the esophagus. If she vomits then she is able to eat again. She reported coughing also every morning. Hoarseness typically is better in the morning but varies day to day. She stated that her voice is typically better than it is today. At times she is not able to be heard by listeners per her report. 12/16/24 Barium swallow: The esophagus is unremarkable. No evidence of obstruction. No mass lesion is seen. No evidence of gastroesophageal reflux. The patient ingested a 12 mm tablet the barium. The tablet is trapped at the gastroesophageal junction. Medications related to this diagnosis: benzonatate, albuterol rescue inhaler, daily inhaler. Smoking Status: Never smoker Diagnosis Diagnosis: Dysphagia Pain Is pain an issue with your current prescribed condition?: No Personal Preferred language: Congolese Patient Allergies Allergies Allergies: Allergies Sulfa (Sulfonamide Antibiotics) Allergy (Severe, Verified 07/01/23 21:22) Rash Subjective Dysphagia Symptoms Reported Symptoms/Problems with: Coughing, Choking, Difficulty Swallowing Solids and Difficulty Swallowing Liquids Current Diet Solids Current Diet: Regular Current Diet Liquids Current Liquids: Thin Objective Dysphagia Diet Texture Recommendations Solids: Regular (Level 7) Liquids: Thin (Level 0) Safety Saftey Precautions/Swallowing Recommendations (Check all that Apply): Upright Position at Least 30 Minutes After Meals and Alternate Liquids & Solids Objective Oral Motor Oral Status Dentition: Missing Teeth Additional: Patient reported she has 8 teeth. Labial Impairment: WNL Closure: WNL Pucker: WNL Retraction: WNL Alternating Pucker/Retraction: WNL Involuntary Movement noted: No Lingual Impairment: WNL Protrusion: WNL Retraction: WNL Lateralization: WNL Involuntary Movement: No Jaw Impairment: WNL Respiratory Status Respiratory Status: Room Air Modified Barium Results Hx If Applicable Enter into a NOTE MBS Results (from prior exam): 12/25/24 10:34 Speech Therapy by Taylor,Nash L [facility] Speech Pathology [address] [place] [address] Modified Barium Swallow Study MR#: [id number] Name: ELI MORALES : 1960 64 From: Venus Cutler M.A., [facility]-JET PIERCER OPERATOR Modified Barium Swallow Patient Information Study Date: 12/15/24 Study Time: 12:45 Direct Billable Minutes: 105 Total Minutes procedure & reportin Diagnosis: Dysphagia R13.10 Referring Physician: Gustavo Angeles Chi Reason for Referral: Objectively assess swallow function, assess risk for aspiration, and determine recommendations for least restrictive diet textures and compensatory strategies to improve safety of swallow. Medical History: PMH: Tremor, Grave's disease, Asthma, Tachycardia. Pt reports difficulty swallowing for over a year characterized by coughing after eating food, then vomiting. She reports this happens daily at almost every meal. She tries to drink liquids, but this does not help. She reports no trouble swallowing liquids. She feels her swallowing problem is becoming worse. She denies odynophagia. Current Diet Ordered: Regular textures / Thin liquids Dentition: Natural Teeth and Missing Teeth (No upper dentition) Mental Status: WNL Respiratory Status: Oxygenating on Room Air Penetration-Aspiration Scale Penetration-Aspiration Scale: OBJECTIVE ASSESSMENT OF SWALLOW FUNCTION (QUANTITATIVE ? PER TRIAL): PENETRATION / ASPIRATION SCALE (FLORES): 1 = does not enter airway 2 = enters airway/above vocal folds/ejected 3 = enters airway/above vocal folds/not ejected 4 = enters airway/contacts vocal folds/ejected 5 = enters airway/contacts vocal folds/not ejected 6 = enters airway/below vocal folds/ejected 7 = enters airway/below vocal folds/not ejected despite effort 8 = enters airway/below vocal folds/no effort VIDEOFLOROSCOPIC SCALE SCORE (FLORES): Grade I = aspiration of material that has penetrated into the laryngeal vestibule, intact cough reflex Grade II = aspiration < 10 % of the bolus, intact cough reflex Grade III = aspiration of < 10 % of the bolus, reduced cough reflex or aspiration of > 10 % of the bolus, intact cough reflex Grade IV = aspiration of > 10 % of the bolus, reduced cough reflexPenetration- Aspiration Scale Score Thin Liquid via teaspoon: Result: 1= does not enter airway Thin Liquid via teaspoon Trial 2: Result: 1= does not enter airway Thin Liquid via small single sip: cup: Result: 1= does not enter airway Thin Liquid via sequential sips: cup: Result: 1= does not enter airway [place] Thick Liquid via small single sip: cup: Result: 1= does not enter airway Comment: Pt had hoarseness and breathiness to voice at baseline; however, after this trial, vocal quality sounded more strangled and was aphonic for the remainder of the evaluation. Pt denied trouble breathing. She reported sensation of something stuck. Esophageal screen - Complete clearance of barium. Pudding via teaspoon: Result: 1= does not enter airway Comment: Esophageal screen - Retention of barium throughout the esophagus. Thin Liquid via single sip: straw: Result: 1= does not enter airway Comment: Esophageal screen - Liquid wash somewhat cleared residues of previous trial in esophagus, but barium still remained. Trace retention of thin barium in upper esophagus. /2 Cookie: Result: 1= does not enter airway Comment: Esophageal screen - Complete clearance. Oral Phase Labial Seal: Interlabial escape, no progression to anterior lip Tongue Control During Bolus Hold: Posterior escape of less than half of bolus Bolus Preparation/Mastication: Slow prolonged chewing/mashing with complete recollection Bolus Transport/Lingual Motion: Delayed initiation of tongue motion Oral Residue: Residue collection on oral structures Pharyngeal Phase Initiation of Pharyngeal Swallow: Bolus head in pyriforms Soft Palate Elevation: Trace column of contrast/air between soft palate and pharyngeal wall Laryngeal Elevation: Comp. Superior move thyroid cart w/comp. apprx arytenoid cart-epig pet Anterior Hyoid Excursion: Partial anterior movement Epiglottic Movement: Complete inversion Laryngeal Vestibule Closure at Height of Swallow: Complete; no air/contrast in laryngeal vestibule Pharyngeal Stripping Wave: Present - complete Pharyngoesophageal Segment Opening: Complete distension and complete duration; no obstruction of flow Tongue Base Retraction: Trace column of contrast between tongue base & post. pharyngeal wall Pharyngeal Residue: Trace residue within or on pharyngeal structures Esophageal Phase Esophageal Clearance: Esophageal retention Diagnosis/Impression Diagnosis: Oropharyngeal swallow grossly WNL; Esophageal dysphagia R13.14 Impression: Oropharyngeal swallow function grossly WNL. Mild delay w/ initiation of tongue motion for A-P transport and posterior loss of bolus to the pyriforms w/ sequential thin. Complete airway closure during the swallow w/ no laryngeal penetration or aspiration. Good pharyngeal clearance despite pt sensing pharyngeal retention. The esophageal phase is primarily marked by... -Retention of pudding throughout esophagus, which somewhat cleared w/ liquid wash. -Trace/minimal retention of liquids in upper esohagus. Recommendations Diet: Regular Textures and Thin Liquids Comment: If sensation of retention, reflux, or regurgitation despite alternating bites/sips, stop and resume meal at a later time. Consider smaller, more frequent meals (4-5 smaller meals daily). Compensatory Strategies: Small Bites, Small Sips, Slow Rate, Alternate bites/solids and sips/liquids, Sitting upright and Remain sitting upright for 30 minutes after PO intake Recommend Repeat Modified Barium Swallow: No Need for Skilled Speech Therapy Services: Yes Comment: Oropharyngeal swallow function appears grossly WNL; however, will recommend patient for Fiberoptic Endoscopic Evaluation of Swallowing (FEES) due to vocal changes (aphonic and strangled) w/ oral intake during MBSS. Recommended Referrals: GI Consult and ENT Consult Education Completed: 1. Described result of evaluation. Status Active ST Patient: Active Contact Information [facility] Speech Therapy:: Venus Cutler M.A. CCC-JET PIERCER OPERATOR? Speech-Language Pathologist?? [address] [address]? [email or web address]?? [phone] 12/15/24 1620 <Electronically signed by Venus Cutler M.A., CCC-JET PIERCER OPERATOR> Initialized on 12/25/24 10:34 - END OF NOTE Reference: Neuro-QoL instrument Radiation Oncology Patient Plan Plan Plan: MBSS recommended FEES due to altered vocal quality after liquid intake during the test that not direct observed for aspiration. FEES will visualize into pharyngeal area as well as into laryngeal vestibule during oral intake. GI referral was discussed with the patient and she already has a GI appointment scheduled. A ENT referral was discussed due to vocal quality and she was provided with information on a local ENT. Patient is in agreement with FEES. Recommendations Treatment Warranted: Yes Treatment Warranted: Dysphagia and Voice Progress Prognosis: Good Patient/Family Goal Patient/Family Goal: Patient wishes to determine why she is having difficulty with coughing and eating as she wishes to be able to eat appropriately again without difficulty. Goals that are Established Determination:: Goals will be added/modified as deemed necessary and appropriate. Therapy will be discontinued when results of re-evaluation indicate therapy is no longer needed or lack of progress has been documented. Goal #1-5 Goal #1: Patient will participate in FEES with goals added as necessary. Goal #2: Voice evaluation after ENT referral. Education Patient has Indicated that the Following Identified Educational Needs: None The Patient has indicated that they have no educational or learning abilities that may effect their care.: Yes Patient Instruction Patient Education: Diagnosis and Treatment Plan Person Taught: Patient Response to teaching: Verbalize Understanding
--- NOTE | 2025-01-25 14:42 | SP.FEES_ITS ---
FEES Patient Information Date of Evaluation: 01/18/25 Time of Evaluation: 10:15 Diagnosis: Dysphagia Staff Providing this Care/Treatment:: DAVID Farley Billable Minutes: 120 History: Past Medical History:: asthma, chronic fatigue. Patient reported that she coughs often, sometimes to the point of vomiting during eating. Every meal she has to stop eating due to feeling fullness at the top of the esophagus. If she vomits then she is able to eat again. She reported coughing also every morning. Hoarseness typically is better in the morning but varies day to day. She stated that her voice is typically better than it is today. At times she is not able to be heard by listeners per her report. MBSS recommended FEES due to altered vocal quality after liquid intake during the test that not direct observed for aspiration. GI appointment was completed on 01/05/25 with the following recommendations: repeat liver US w/elastography, consult ENT for vertigo and dysphonia, esophageal manometry, schedule EGD after manometry results, suggested to retry vitamin E supplement 800mg PO daily, suggested Mediterranean diet adherence, consider Sandy, then follow up appointment with GI. TX/DX History:: MBSS Subjective: Subjective:: Patient reported her voice today was about typical. She has had multiple testing but isn't sure what she has this Saturday. ENT was recommended following MBS as well as outpatient swallow evaluation but has not been completed at this time. She also has not seen a flatwork catcher as Dr. Angeles, PCP has been treating her asthma. Symptoms have been ongoing for a year. Current Diet: Drinks/Liquids:: Thin Foods:: Easy to chew Comment:: Patient Respiratory Status Observation:: Room air SP02 95. Observed patient to have reduced breath support for speaking and at rest. Dentition/Oral Hygiene: Observations:: Patient has missing teeth with teeth present only in the front upper and lower. She also stated she may not have those for much longer. Vocal Quality: Observations:: Hoarse, Raspy, Strangled and Other (See Comment) Comments:: Pressed sound. Cognition: Observations:: WFL Position During FEES: Position During FEES:: Upright Location: In Chair Fiberoptic Endoscope: Size: 3.4 mm Nare Used:: Right Anatomy: Velum Movement: Yes Nasopharynx Tissue Description: [place] and Moist Anatomical Findings: Anatomical Findings:: Observed white patchy area of approximately one inch in length on the left base of tongue. Oropharynx was WFL. Bilateral Arytenoids appearing edematous with right slightly more. Observed an excrescence of pencil tip size on the left false vocal fold superior to true vocal fold vocal process of the arytenoid cartilage (figure 1). False vocal folds also appearing edematous with right false vocal fold covering right true fold. (See Figure 2) Secretions: Description:: Thin and Clear Phonation: Arytenoid Adduction: Abnormal Vocal Fold Adduction: Abnormal Comment:: The patient demonstrates a pressed voice with evidence of vocal fold tension during phonation. The vocal folds appear tightly adducted, with limited excursion and minimal mucosal wave. During phonation, false vocal folds are adducting but true vocal folds are minimally visible posteriorly ( figure 3). At times, approximately half left vocal fold was visible during phonation with right true vocal fold not being visualized at all. Penetration-Aspiration Scale Penetration-Aspiration Scale Thin Liquids by Single Cup Food/Drink Provided:: Water Swallow Onset Location:: Tongue Base PAS Score: PAS Score *1 Visual Analysis of Swallowing Efficiency and Safety (VASES) after the swallow: O ropharynx Comments:: Patient had minimal residue after the swallow in the vallecula with independent second swallow clearing residue. Thin Liquids by Sequential Cup Food/Drink Provided:: Water Swallow Onset Location:: Tongue Base Visual Analysis of Swallowing Efficiency and Safety (VASES) after the swallow: H ypopharynx Comments:: Patient had minimal to moderate residue after the swallow in the pyriform sinuses with independent second swallow clearing residue. Thin Liquids by Single Straw Food/Drink Provided:: Water Swallow Onset Location:: Tongue Base PAS Score: PAS Score *1 Visual Analysis of Swallowing Efficiency and Safety (VASES) after the swallow: O ropharynx Comments:: Patient had moderate residue after the swallow in the vallecula with independent second swallow clearing residue. Puree Textures Food/Drink Provided:: Applesauce Swallow Onset Location:: Tongue Base PAS Score: PAS Score *1 Comments:: Patient demonstrated an independent second swallow, although no residue was observed. Easy to Chew Textures Food/Drink Provided:: Diced peaches in juice. Swallow Onset Location:: Tongue Base and Vallecula Comments:: One swallow triggered at tongue base, second swallow at the vallecula. Comments:: Patient took bites with juice and pieces of peach. She had premature spillage of juice to level of pyriform sinuses and then swallowed. She was able to orally hold pieces of peach to then masticate. Minimal residue and patient had independent second swallow to clear that residue. Regular Textures Food/Drink Provided:: Helder cracker Swallow Onset Location:: Tongue Base and Vallecula Comments:: Swallow trigger varied on 3 trials from tongue base to vallecula. Visual Analysis of Swallowing Efficiency and Safety (VASES) after the swallow: O ropharynx Comments:: She demonstrated an independent second swallow that did not completely clear residue. Patient had mild residue on base of tongue that cleared with a liquid wash. Diagnosis/Impressions Diagnosis: Oral/Pharyngeal phase WFL. Images: Figure 1. excrescence of pencil tip size on the left false vocal fold superior to true vocal fold vocal process of the arytenoid cartilage Figure 2 right false vocal fold covering right true fold. Figure 3. false vocal folds are adducting but true vocal folds are minimally visible posteriorly Impressions: Patient overall had WFL oral and pharyngeal phases of the swallow. No aspiration or penetration noted at any time. She had mild posterior pharyngeal loss of liquids to the level to the pyriform sinuses and overall mild residue on solids after the swallow that cleared with an independent second swallow or liquid wash. No treatment warranted for dysphagia at this time. Referral to ENT provided to the patient due to vocal fold concerns and decreased vocal quality noted. Recommendations Diet: Regular Textures Comments: Patient is able to independently modify her diet due to lack of dentition. Compensatory Strategies: Small Bites and Alternate bites/solids and sips/liquids Recommend Repeat Instrumental Swallow Assessment: No Need for Skilled Speech Therapy Services: No (No dysphagia Treament.) Recommended Referrals: ENT Consult Education Completed: 1. Described result of evaluation. Goals that are Established Goal #1: Patient will participate in FEES with goals added as necessary. Goal #2: Voice evaluation after ENT referral.
--- NOTE | 2025-03-22 09:18 | HP.SP.DC ---
ST Discharge Summary Discharged: Discharge: Yasmin Godinez is discharged from [facility] as of March 22, 2025. She was evaluated on 12/25/24 for dysphagia with a FEES recommended. FEES was completed on 01/18/25 with regular textures/ thin liquids recommended. No further dysphagia treatment was warranted at that time. Patient is able to independently modify her diet to soft foods due to lack of dentition. Recommended ENT consult prior to voice evaluation. No further information has been provided from ENT referral and patient has not scheduled any further visits. Please see reports for full details. Thank you for allowing me to participate in the care of this patient.
== END 2025-01-18 19:00 | disposition home or self-care (01) ==
LOC: SP 10:00
PROVIDERS: PCP Family Medicine Geriatric Medicine; Referring Provider Family Medicine Geriatric Medicine; Visit Provider Family Medicine Geriatric Medicine
DX: R13.10 Dysphagia, unspecified (principal)
CPT/HCPCS: 92610; 92612

== ENCOUNTER → 2025-01-22 | Day surgery (SDC) | payer MEDICARE, MEDICAID, SELFPAY ==
[2025-01-22 09:02] VITALS: BP 151/75; PULSE 81; RESP 15; TEMP 36.6; O2SAT 100
== END | disposition home or self-care (01) ==
LOC: EN 08:26 → AC 08:27 → EN 01-25 05:25
PROVIDERS: PCP Family Medicine Geriatric Medicine; Referring Provider Family Medicine Geriatric Medicine; Visit Provider Internal Medicine Gastroenterology
PROC: F00ZJWZ Instrumental Swallowing and Oral Function Assessment using Swallowing Equipment (ICD-10-PCS; CPT 43235; principal; 2025-01-22 08:55)
DX: R13.19 Other dysphagia (principal)
CPT/HCPCS: 91010

== ENCOUNTER 2025-03-09 11:39 | Day surgery (SDC) | payer MEDICARE, MEDICAID, SELFPAY ==
--- NOTE | 2025-03-03 15:24 | PAT.ANESEVAL ---
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 When Was Last Pacemaker Check QUESTION #4 FULL TEXT: You/Your Family Experience fever (hyperthermia) with Anesthesia Last Oral Intake Last Oral intake: Last Oral Intake NPO since Meds taken in AM with sips of water? 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 Female Yes 03/03/25 14:41 HX of Motion Sickness No 03/03/25 14:41 HX of N/V After Surgery No 03/03/25 14:41 Non-Smoker Yes 03/03/25 14:41 Duration of Surgery greater No 03/03/25 14:41 than 60 minutes Number of Risk Factors 2 03/03/25 14:41 PONV Score Moderate Risk 03/03/25 14:41 Height & Weight Height & Weight: Anesthesia: Height & Weight Height 5 ft 3 in 07/01/23 21:17 Respiratory Assessment Respiratory Assessment - calender roll operator: Respiratory Tract Infection Hx - calender roll operator Hx Respiratory Tract Infection No 03/03/25 14:41 STOP Sleep Apnea STOP Sleep Apnea - calender roll operator: STOP Sleep Apnea - calender roll operator Hx Hypertension No 03/03/25 14:41 Hx Sleep Apnea No 03/03/25 14:41 CPAP BIPAP Do you snore loudly (louder No 03/03/25 14:41 than talking or can be heard Do you often feel tired/ No 03/03/25 14:41 fatigued/ sleepy during daytime? Has anyone observed you stop No 03/03/25 14:41 breathing during sleep? STOP Results Negative 03/03/25 14:41 QUESTION #5 FULL TEXT : Do you snore loudly (louder than talking or can be heard through closed doors)? 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 Specify any problems Hx of Preganancy in last 3 No 03/03/25 14:41 Months Nurse Filling Out Transfusion VCHRISTIN 03/03/25 14:41 & Questions: Date: 03/03/25 03/03/25 14:41 Time: 14:42 03/03/25 14:41 Patient unable to answer at this time (ie. confused, unrespo /Reproduction History /Reproductive History - calender roll operator: /Reproductive Hx- calender roll operator Hx Now Gestational Age (in weeks): EDC: Hx Hx Para Hx Section SAB PFSH Medical History (Updated 03/03/25 @ 14:41 by Melissa Craig) Wears dentures Wears glasses Thyroid disease Arthritis Fatty liver Anemia Easy bruising Excessive bleeding Difficulty chewing Gastric reflux Non-smoker Shortness of breath on exertion Leg cramps History of edema History of echocardiogram History of stress test History of rheumatic fever History of irregular heartbeat Tachycardia Asthma Graves disease Essential tremor Home Medications ?Medication ?Instructions ?Recorded ?Last Taken ?Type albuterol sulfate 90 mcg/actuation 2 puff inhalation PRN PRN Sob &/Or 12/10/17 Unknown History aerosol inhaler (Ventolin HFA) Wheezing loratadine 10 mg disintegrating 10 mg PO DAILY 12/10/17 Unknown History tablet (Alavert) mometasone-formoterol HFA 200 2 puff inhalation BID 12/10/17 Unknown History mcg-5 mcg/actuation aerosol inhaler (Dulera) montelukast 10 mg tablet 10 mg PO DAILY 12/10/17 Unknown History aspirin 81 mg tablet,delayed 81 mg PO DAILY 02/16/19 Unknown History release (Aspir-Low) atenolol 100 mg tablet 100 mg PO DAILY #30 tabs 07/02/23 Unknown Rx levothyroxine 100 mcg tablet 100 mcg PO QDAY 03/03/25 Unknown History pantoprazole 40 mg tablet,delayed 40 mg PO QDAY 03/03/25 Unknown History release vitamin E 268 mg (400 unit) capsule 536 mg PO DAILY 03/03/25 Unknown History Allergy/AdvReac Type Severity Reaction Status Date / Time Sulfa (Sulfonamide Allergy Severe Rash Verified 03/03/25 14:28 Antibiotics) azithromycin AdvReac Upset Verified 03/03/25 14:28 Stomach Surgical History (Updated 03/03/25 @ 14:41 by Melissa Craig) Hx of cataract extraction History of cardiac catheterization Hx of shoulder surgery Hx of section Social History Smoking Status: Never smoker alcohol intake: never Audit: Pertinent Findings Pertinent Findings EKG Perinent findings: 06/23/2023. Sinus tachycardia [address] and T wave abnormality. Recommendation Anesthesia Recommendation Anesthesia recommendation: OPTIMIZED for anesthesia
[2025-03-09] VITALS (9 sets, daily range): BP systolic 95–138; BP diastolic 45–64; PULSE 63–73; RESP 14–18; TEMP 36.2–36.6; O2SAT 94–100; BMI 29.7
[2025-03-09] MEDS: Lactated Ringers 1,000 ML 15 ML IV (12:45)
--- NOTE | 2025-03-09 13:22 | PCM.PRE.AN2 ---
ASA Classification* ASA Classification ASA Classification: 3 Assessment & Plan Anesthesia* Anesthesia Assessment Anesthesia Assessment: Discussed sedation and/or anesthesia options, risks, benefits, and alternatives with patient/parents/legal guardian/POA. Questions invited. The patient/parents/legal guardian/POA seems to understand and agrees to proceed with anesthesia plan. Reviewed the physical assessment, medical history, allergy history and patient home medications list prior to surgery/procedure/anesthetic and documented any changes. Performed airway and anesthesia risk assessments. Anesthesia Type Anesthesia Type: MAC History Source History Obtained from:: Patient and Chart Anesthesia Focused Assessment* Temperature: 97.1 F Pulse Rate: 73 Blood Pressure: 138/63 Respiratory Rate: 14 Pulse Ox: 100 Oxygen Delivery Method: Room Air Airway Assessment Mouth opens: 2 cm Mallampati Score: IV Teeth Condition: Lower (Patient has 8 remaining teeth on the bottom. They are tight.) and Upper (Patient is edentulous on top.) Neck Range of motion (ROM): Full ROM Focused Labs Anesthesia Preop lab: CBC WBC 8.7 K/mm3 (4.4-11.0) 11/18/24 12:43 11/18/24 RBC 4.26 M/mm3 (4.2-5.4) 11/18/24 12:43 11/18/24 Hgb 12.6 g/dL (12.0-15.0) 11/18/24 12:43 11/18/24 Hct 38.0 % (37-47) 11/18/24 12:43 11/18/24 Plt Count 380 K/mm3 (150-450) 11/18/24 12:43 11/18/24 CHEMISTRY Potassium 4.3 mmol/L (3.5-5.1) 11/18/24 12:43 11/18/24 Sodium 136 mmol/L (136-145) 11/18/24 12:43 11/18/24 Magnesium 2.1 mg/dL (1.8-2.4) 04/08/17 11:53 04/08/17 BUN 11 mg/dL (7-18) 11/18/24 12:43 11/18/24 Creatinine 0.96 mg/dL (0.55-1.02) 11/18/24 12:43 11/18/24 Glucose 95 mg/dL (74-106) 11/18/24 12:43 11/18/24 TSH 1.250 uIU/mL (0.358-3.740) 11/18/24 12:43 11/18/24 COAG Pre-Assessment Diagnosis/Proposed Procedure Planned Operative Procedure(s): EGD Anesthesia History 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 When Was Last Pacemaker Check QUESTION #4 FULL TEXT: You/Your Family Experience fever (hyperthermia) with Anesthesia Last Oral Intake Last Oral intake: Last Oral Intake NPO since 21:00 03/09/25 12:36 Meds taken in AM with sips of water? 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 Female Yes 03/03/25 14:41 HX of Motion Sickness No 03/03/25 14:41 HX of N/V After Surgery No 03/03/25 14:41 Non-Smoker Yes 03/03/25 14:41 Duration of Surgery greater No 03/03/25 14:41 than 60 minutes Number of Risk Factors 2 03/03/25 14:41 PONV Score Moderate Risk 03/03/25 14:41 Height & Weight Height & Weight: Anesthesia: Height & Weight Height 5 ft 3 in 03/09/25 12:36 Weight: 76 kg 03/09/25 12:36 Body Mass Index (BMI) 29.7 03/09/25 12:36 Respiratory Assessment Respiratory Assessment - ventilated rib fitter: Respiratory Tract Infection Hx - ventilated rib fitter Hx Respiratory Tract Infection No 03/03/25 14:41 STOP Sleep Apnea STOP Sleep Apnea - ventilated rib fitter: STOP Sleep Apnea - ventilated rib fitter Hx Hypertension No 03/03/25 14:41 Hx Sleep Apnea No 03/03/25 14:41 CPAP BIPAP Do you snore loudly (louder No 03/03/25 14:41 than talking or can be heard Do you often feel tired/ No 03/03/25 14:41 fatigued/ sleepy during daytime? Has anyone observed you stop No 03/03/25 14:41 breathing during sleep? STOP Results Negative 03/03/25 14:41 QUESTION #5 FULL TEXT : Do you snore loudly (louder than talking or can be heard through closed doors)? 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 Specify any problems Hx of Preganancy in last 3 No 03/03/25 14:41 Months Nurse Filling Out Transfusion VCHRISTIN 03/03/25 14:41 & Questions: Date: 03/03/25 03/03/25 14:41 Time: 14:42 03/03/25 14:41 Patient unable to answer at this time (ie. 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: /Reproductive Hx- ventilated rib fitter Hx Now Gestational Age (in weeks): EDC: Hx Hx Para Hx Section SAB Active Medications Active Medications: Current Medications Generic Name Dose Route Start Last Admin Trade Name Freq PRN Reason Stop Dose Admin Lactated Ringer's 1,000 mls @ 15 mls/hr 03/09/25 12:00 03/09/25 12:45 IV 15 mls/hr .Q48H JOSE Administration PFSH Medical History Wears dentures Wears glasses Thyroid disease Arthritis Fatty liver Anemia Easy bruising Excessive bleeding Difficulty chewing Gastric reflux Non-smoker Shortness of breath on exertion Leg cramps History of edema History of echocardiogram History of stress test History of rheumatic fever History of irregular heartbeat Tachycardia Asthma Graves disease Essential tremor Home Medications ?Medication ?Instructions ?Recorded ?Last Taken ?Type albuterol sulfate 90 mcg/actuation 2 puff inhalation PRN PRN Sob &/Or 12/10/17 Unknown History aerosol inhaler (Ventolin HFA) Wheezing loratadine 10 mg disintegrating 10 mg PO DAILY 12/10/17 Unknown History tablet (Alavert) mometasone-formoterol HFA 200 2 puff inhalation BID 12/10/17 Unknown History mcg-5 mcg/actuation aerosol inhaler (Dulera) montelukast 10 mg tablet 10 mg PO DAILY 12/10/17 Unknown History aspirin 81 mg tablet,delayed 81 mg PO DAILY 02/16/19 03/05/25 History release (Aspir-Low) atenolol 100 mg tablet 100 mg PO DAILY #30 tabs 07/02/23 03/09/25 06:00 Rx levothyroxine 100 mcg tablet 100 mcg PO QDAY 03/03/25 03/09/25 06:00 History pantoprazole 40 mg tablet,delayed 40 mg PO QDAY 03/03/25 Unknown History release vitamin E 268 mg (400 unit) capsule 536 mg PO DAILY 03/03/25 03/08/25 History Allergy/AdvReac Type Severity Reaction Status Date / Time Sulfa (Sulfonamide Allergy Severe Rash Verified 03/09/25 12:33 Antibiotics) azithromycin AdvReac Upset Verified 03/09/25 12:33 Stomach Surgical History Hx of cataract extraction History of cardiac catheterization Hx of shoulder surgery Hx of section Social History Smoking Status: Never smoker alcohol intake: never Review of Systems (Anesthesia) ROS Narrative System reviewed and no additional complaints, except as documented. Physical Exam Resp clear to auscultation bilaterally
--- NOTE | 2025-03-09 13:30 | EGD_PTH ---
PATIENT: ELI MORALES LOC: EN U#:[id number] AGE/SX: 64/F ROOM: RE03/09/[address]: Dr. Franklyn Justin DO : 1960 BED: DIS: 03/09/2025 SPEC #: [id number] RECD: 03/10/25 09:39 STATUS: JONI REQ #: [id number] SOM: 03/09/25 13:[address]: Franklyn Justin DEPT: SURGICAL PATHOLOGY RECD BY: Alpesh Nunez ENTERED: 03/10/25 10:45 SP TYPE: EGD BIOPSY FRANKO DR: Dr. Gustavo Angeles MD Tissues: A - Esophagus, NOS Procedures: Surgery Specimen Level IV HEADER OPERATION: EGD with biopsy, dilation PRE-OP DIAGNOSIS: Dysphagia TISSUE SUBMITTED: A- Distal esophagus biopsy MICROSCOPIC DIAGNOSIS A. Esophagus, distal, biopsy * Benign squamous epithelium * Oxyntocardiac type mucosa with mild chronic inflammation, negative for goblet cells MICROSCOPIC DESCRIPTION Slides are reviewed. GROSS DESCRIPTION A. Received in formalin in a container labeled with the patient's name, date of , and distal esophagus biopsy are 2 [place]-pink fragments of mucosal tissue measuring 0.4 x 0.2 x 0.2 cm and 0.5 x 0.3 x 0.3 cm. Submitted in toto in A1. [facility] 03-10-2025 CPT:16925
--- NOTE | 2025-03-09 14:24 | PCM.HP.STD ---
HPI - General General Date of Admission: 03/09/25 Date of Service: 03/09/25 Chief Complaint: dysphagia HPI Narrative ELI MORALES, is a 64 F who presents for complaints of dysphagia. PMHx Graves s/p radioactive iodine tx '03, hypothyroid, asthma, mitral valve prolapse, childhood rheumatic fever, VitD def, HLD, ess tremor *cookie w/esophogram-WNL, barium tablet 12mm trapped at gastroesophageal junction 12/15-10/28. Reviewed labs from PCP:elevated lipids, fatty liver with last elastography 11/2023: 8.9kPa F2-F3. She reports dysphagia has not been bad this past week, but prior to, she would feel her esophagus got so full and then she would have to vomit in order to eat again. Speech therapist has recommended small bites of softer foods due to her poor dentition and she's noticed a significant improvement. She reports use of multiple pillows to sleep or she wakes up short of breath, abdominal bloating, excessive belching and flatus, and diarrhea after eating chocolate. She denies heartburn, reflux, nausea, abdominal cramping, constipation, hematochezia, and melena. She reports intolerance of all statin therapies and has tried vitamin E supplements in the past and feels they made her sick. She reports BMs 1 to 2 times daily with complete evacuation. 1.15.25- Fib-4 ? 0.61 US abd/ elastography 3.14.25- Liver measures 12.5cm, ?Stiffness 10.7 kPa OV 0430.25 Feeling well. No acute concerns. Episode about 3 days ago, woke up with vertigo then abdominal cramps and diarrhea for about one day that since resolved. Does not typically have abdominal cramping or diarrhea. She should not take to PPI. She is on omeprazole 40 mg BID and pantoprazole 40 mg Qday [facility] Medical History Wears dentures Wears glasses Thyroid disease Arthritis Fatty liver Anemia Easy bruising Excessive bleeding Difficulty chewing Gastric reflux Non-smoker Shortness of breath on exertion Leg cramps History of edema History of echocardiogram History of stress test History of rheumatic fever History of irregular heartbeat Tachycardia Asthma Graves disease Essential tremor Home Medications ?Medication ?Instructions ?Recorded ?Last Taken ?Type albuterol sulfate 90 mcg/actuation 2 puff inhalation PRN PRN Sob &/Or 12/10/17 Unknown History aerosol inhaler (Ventolin HFA) Wheezing loratadine 10 mg disintegrating 10 mg PO DAILY 12/10/17 Unknown History tablet (Alavert) mometasone-formoterol HFA 200 2 puff inhalation BID 12/10/17 Unknown History mcg-5 mcg/actuation aerosol inhaler (Dulera) montelukast 10 mg tablet 10 mg PO DAILY 12/10/17 Unknown History aspirin 81 mg tablet,delayed 81 mg PO DAILY 02/16/19 03/05/25 History release (Aspir-Low) atenolol 100 mg tablet 100 mg PO DAILY #30 tabs 07/02/23 03/09/25 06:00 Rx levothyroxine 100 mcg tablet 100 mcg PO QDAY 03/03/25 03/09/25 06:00 History pantoprazole 40 mg tablet,delayed 40 mg PO QDAY 03/03/25 Unknown History release vitamin E 268 mg (400 unit) capsule 536 mg PO DAILY 03/03/25 03/08/25 History Allergy/AdvReac Type Severity Reaction Status Date / Time Sulfa (Sulfonamide Allergy Severe Rash Verified 03/09/25 12:33 Antibiotics) azithromycin AdvReac Upset Verified 03/09/25 12:33 Stomach Surgical History Hx of cataract extraction History of cardiac catheterization Hx of shoulder surgery Hx of section Social History Smoking Status: Never smoker alcohol intake: never ROS Constitutional Constitutional: Denies fatigue, fever(s), poor appetite, weight gain or weight loss Gastrointestinal Gastrointestinal: Denies belching, bloating, change in bowel habits, change in stool character, chewing difficulty, coffee ground emesis, constipation, cramping, diarrhea, dyspepsia, dysphagia, early satiety, excessive flatus, fecal incontinence, heartburn, hematemesis, hematochezia, hemorrhoids, loose stools, melena, nausea, odynophagia, rectal bleeding, tenesmus, vomiting or weight changes Vital Signs Vital Signs Vital Signs: 03/09/25 12:36 03/09/25 12:36 03/09/25 13:29 Temperature 97.1 F L 97.1 F L Temperature Source Temporal Pulse Rate 73 73 Respiratory Rate 14 14 Respiratory Pattern Normal Blood Pressure 138/63 H 138/63 H Blood Pressure Mean 88 Blood Pressure Source Monitor Blood Pressure Position Sitting Blood Pressure Location Left Arm Pulse Ox 100 100 Oxygen Delivery Method Room Air Room Air Weight Weight: 167 lb 8.821 oz Body Mass Index (BMI) 29.7 Physical Exam Const alert, oriented x3, no apparent distress and healthy appearing General Appearance: cooperative GI normal to inspection, nondistended, normoactive bowel sounds, soft to palpation, non-tender and non-distended Percussion: normal to percussion Rectal Exam: deferred Assessment & Plan Assessment/Plan (1) Dysphagia: QUALIFIERS: Dysphagia type: other dysphagia Qualified Code(s): R13.19 - Other dysphagia PLAN: Assessment and Plan Assessment and Plan (1) Dysphagia: Status: Chronic Qualifiers: Dysphagia type: other dysphagia Qualified Code(s): R13.19 - Other dysphagia Comment: noted barium pill trapped at GE junction Plan: Patient has ongoing dysphagia for some time and has seen ENT. Not documented from ENT but patient verbally said they did not find much abnormality. 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 She has dysphagia both from solid and liquid (most likely she has motility issue. Barium esophagram reviewed. Esophageal manometry shows EG junction normal relaxation. Esophageal body consistent with a spastic soft PS. Consistent with distal esophageal spasm. Patient supposed to have EGD by Dr. Justin on on March 08. 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 Median velocity 1.88 m/s, median liver stiffness 10.7 kPa suggestive of moderate liver fibrosis. I discussed the risk factors, pathogenesis, natural history complications including cirrhosis and HCC of metabolic dysfunction associated steatotic liver disease, (MASLD) and patient affirmed understanding. There is There is recently 1 approved FDA medication for NAFLD, Resmitrom (Rezdiffra) but medications used for diabetes mellitus and weight loss mainly to metformin, pioglitazone, empagliflozin and GLP-1 agonist like semaglutide, dulaglutide/Trulicity have been found to decrease fatty content and improve fibrosis score found in the research literature. high triglyceride 234, LDL 163. Vitamin D normal. TSH normal. For now, patient primary complaint is dysphagia and will address months dysphagia gets slightly better. Liver chemistry shows elevated ALP 129. ALP isoenzymes, GGT, lipid profile, serum ELF test ordered Orders: Orders AFP, Tumor Marker 3 Months G25.0 - Essential tremor, K74.60 - Unspecified cirrhosis of liver, K75.81 - Nonalcoholic steatohepatitis (RUBIO), R13.19 - Other dysphagia CBC W/Diff, Automated 3 Months G25.0 - Essential tremor, K75.81 - Nonalcoholic steatohepatitis (RUBIO), R13.19 - Other dysphagia Anti-Mitochondrial AB 3 Months G25.0 - Essential tremor, K75.81 - Nonalcoholic steatohepatitis (RUBIO), R13.19 - Other dysphagia Anti-Smooth Muscle ABS 3 Months G25.0 - Essential tremor, K75.81 - Nonalcoholic steatohepatitis (RUBIO), R13.19 - Other dysphagia Hemoglobin A1c 3 Months G25.0 - Essential tremor, K75.81 - Nonalcoholic steatohepatitis (RUBIO), R13.19 - Other dysphagia, R73.9 - Hyperglycemia, unspecified Prothrombin Time w/INR 3 Months G25.0 - Essential tremor, K75.81 - Nonalcoholic steatohepatitis (RUBIO), R13.19 - Other dysphagia LDH 3 Months G25.0 - Essential tremor, K75.81 - Nonalcoholic steatohepatitis (RUBIO), R13.19 - Other dysphagia Lipid Profile 3 Months G25.0 - Essential tremor, K75.81 - Nonalcoholic steatohepatitis (RUBIO), R13.19 - Other dysphagia CRP 3 Months G25.0 - Essential tremor, K75.81 - Nonalcoholic steatohepatitis (RUBIO), R13.19 - Other dysphagia Copper, Serum or Plasma 3 Months G25.0 - Essential tremor, K75.81 - Nonalcoholic steatohepatitis (RUBIO), R13.19 - Other dysphagia Ceruloplasmin 3 Months G25.0 - Essential tremor, K75.81 - Nonalcoholic steatohepatitis (RUBIO), R13.19 - Other dysphagia Ferritin 3 Months G25.0 - Essential tremor, K75.81 - Nonalcoholic steatohepatitis (RUBIO), R13.19 - Other dysphagia Comprehensive Metabolic Profil 3 Months G25.0 - Essential tremor, K75.81 - Nonalcoholic steatohepatitis (RUBIO), R13.19 - Other dysphagia STUART w/ Reflex Mult Confirm 3 Months G25.0 - Essential tremor, K75.81 - Nonalcoholic steatohepatitis (RUBIO), R13.19 - Other dysphagia ALK Phos Isoenzyme 3 Months G25.0 - Essential tremor, K75.81 - Nonalcoholic steatohepatitis (RUBIO), R13.19 - Other dysphagia GGTP 3 Months G25.0 - Essential tremor, K75.81 - Nonalcoholic steatohepatitis (RUBIO), R13.19 - Other dysphagia MANA + Protein Elect, Serum 3 Months G25.0 - Essential tremor, K75.81 - Nonalcoholic steatohepatitis (RUBIO), R13.19 - Other dysphagia
--- NOTE | 2025-03-09 14:57 | PCM.POST.ANE ---
Anesthesia: Postop Eval I Current Vital Signs Temperature: 97.9 F Pulse Rate: 67 Blood Pressure: 95/45 Respiratory Rate: 16 Pulse Ox: 96 Oxygen Delivery Method: Room Air Assessment Airway patent: Yes Spontaneous unlabored respirations: Yes Mental status: Asleep nausea: No Vomiting: No Anesthesia Complication: No Fluid Hydration Crystalloid volume administer (ml): 400 Total IV fluid infused: 400 Progress Note Anesthesia document: Postop Eval 1 completed: Yes
--- NOTE | 2025-03-09 15:24 | PCM.POSTANE2 ---
Anesthesia Postop Eval I Sum Postop Eval Completion status Anesthesia document: Postop Eval 1 completed: Yes Anesthesia Postop Eval I Summary Anesthesia Postop Eval I Summary: Anesthesia Postop Eval I: Assessment Summary Airway patent Yes 03/09/25 14:59 [email or web address] Spontaneous unlabored Yes 03/09/25 14:59 [email or web address] respirations Mental status Asleep 03/09/25 14:59 [email or web address] nausea No 03/09/25 14:59 [email or web address] Vomiting No 03/09/25 14:59 [email or web address] Anesthesia Postop Eval I: Fluid Summary Crystalloid volume administer 400 03/09/25 14:59 [email or web address] (ml) Colloids volume administered ( ml) Blood Product volume administered (ml) Total IV fluid infused 400 03/09/25 14:59 [email or web address] Anesthesia Postop Eval I: Summary Notes Anesthesia Complication No 03/09/25 14:59 [email or web address] Anesthesia Complication Comment: Post-operative progress note Anesthesia: Postop Eval II Evaluation Mental status: Awake and Calm Pain Level: 0 nausea: No Vomiting: No Complications Anesthesia Complication: No
--- NOTE | 2025-03-09 15:46 | OP.EGD_ITS ---
Patient Name: Yasmin Godinez Procedure Date: 03/09/2025 2:30 PM Date of : 1960 Age: 64 Procedure: Upper GI endoscopy Indications: Dysphagia Providers: Franklyn Justin DO Medicines: Monitored Anesthesia Care Patient Profile: This is a 64 year old female. Refer to note in patient chart for documentation of history and physical. Patient has symptoms of dysphagia with solids. Complications: No immediate complications. Procedure: Pre-Anesthesia Assessment: - Prior to the procedure, a History and Physical was performed, and patient medications and allergies were reviewed. The patient is competent. The risks and benefits of the procedure and the sedation options and risks were discussed with the patient. All questions were answered and informed consent was obtained. Patient identification and proposed procedure were verified by the physician in the pre-procedure area. Mental Status Examination: alert and oriented. Airway Examination: normal oropharyngeal airway and neck mobility. Respiratory Examination: clear to auscultation. CV Examination: normal. Prophylactic Antibiotics: The patient does not require prophylactic antibiotics. Prior Anticoagulants: The patient has taken no anticoagulant or antiplatelet agents. ASA Grade Assessment: III - A patient with severe systemic disease. After reviewing the risks and benefits, the patient was deemed in satisfactory condition to undergo the procedure. The anesthesia plan was to use monitored anesthesia care (MAC). Immediately prior to administration of medications, the patient was re-assessed for adequacy to receive sedatives. The heart rate, respiratory rate, oxygen saturations, blood pressure, adequacy of pulmonary ventilation, and response to care were monitored throughout the procedure. The physical status of the patient was re-assessed after the procedure. After obtaining informed consent, the endoscope was passed under direct vision. Throughout the procedure, the patient's blood pressure, pulse, and oxygen saturations were monitored continuously. The Endoscope was introduced through the mouth, and advanced to the third part of duodenum. The upper GI endoscopy was accomplished without difficulty. The patient tolerated the procedure well. Scope In: 2:41:03 PM Scope Out: 2:45:08 PM Total Procedure Duration Time 0 hours 4 minutes 5 seconds Findings: The Z-line was irregular and was found 40 cm from the incisors. A moderate Schatzki ring was found in the lower third of the esophagus. A guidewire was placed and the scope was withdrawn. Dilation was performed with a Savary dilator with no resistance at 57 Fr. The dilation site was examined and showed moderate improvement in luminal narrowing. Estimated blood loss was minimal. No gross lesions were noted in the entire examined stomach. No gross lesions were noted in the entire examined duodenum. Impression: - Z-line irregular, 40 cm from the incisors. - Moderate Schatzki ring. Dilated. - No gross lesions in the entire stomach. - No gross lesions in the entire examined duodenum. - No specimens collected. Recommendation: - Discharge patient to home. - Resume previous diet. - Continue present medications. - Await pathology results. Procedure Code(s): --- Professional --- 62882, Esophagogastroduodenoscopy, flexible, transoral; with insertion of guide wire followed by passage of dilator(s) through esophagus over guide wire CPT copyright 2021 [employer]. All rights reserved. The codes documented in this report are preliminary and upon produce production team member review may be revised to meet current compliance requirements. Franklyn Justin DO 03/09/2025 3:45:17 PM This report has been signed electronically. Number of Addenda: 0 Note Initiated On: 03/09/2025 2:30 PM
--- NOTE | 2025-03-09 15:46 | OP.CCLET_ITS ---
03/09/2025 Gustavo Angeles MD [address] [place] [address] Re : Upper GI endoscopy procedure for Yasmin Godinez Dear Dr. Angeles This procedure was performed on Sunday, March 09, 2025. My impressions and recommendations are as follows: Impressions : - Z-line irregular, 40 cm from the incisors. - Moderate Schatzki ring. Dilated. - No gross lesions in the entire stomach. - No gross lesions in the entire examined duodenum. - No specimens collected. Recommendations : - Discharge patient to home. - Resume previous diet. - Continue present medications. - Await pathology results. My findings are described in the full procedure note, which is enclosed. If I can be of further assistance, please feel free to contact me at . Sincerely, Franklyn Justin, 03/09/2025 3:45:17 PM This report has been signed electronically.
== END 2025-03-09 15:53 | disposition home or self-care (01) ==
LOC: EN 11:40 → AC 11:41
PROVIDERS: PCP Family Medicine Geriatric Medicine; Referring Provider Family Medicine Geriatric Medicine; Visit Provider Internal Medicine Gastroenterology
PROC: 0DJ08ZZ Inspection of Upper Intestinal Tract, Via Natural or Artificial Opening Endoscopic (ICD-10-PCS; CPT 43235; principal; 2025-03-09 13:25)
DX: K21.00 Gastro-esophageal reflux disease with esophagitis, without bleeding (principal); K22.2 Esophageal obstruction; E78.5 Hyperlipidemia, unspecified; Z79.51 Long term (current) use of inhaled steroids; Z79.82 Long term (current) use of aspirin; E03.9 Hypothyroidism, unspecified; J45.909 Unspecified asthma, uncomplicated; Z79.890 Hormone replacement therapy; K75.81 Nonalcoholic steatohepatitis (NASH); G25.0 Essential tremor
CPT/HCPCS: 43248; 88305; C1769; J2405

== ENCOUNTER → 2025-05-21 | Outpatient (CLI) | payer MEDICARE, MEDICAID, SELFPAY ==
[2025-05-21 10:31] LABS: Hematocrit 32.0 % (37-47); Hemoglobin 10.7 g/dL (12.0-15.0); Immature Granulocytes Count 0.020 X10^3/uL (0.0-0.0); Mean Corp Hgb Conc 33.4 g/dL (32-36); Mean Corpuscular Volume 85.1 fL (81-99); Mean Platelet Vol. 9.2 fl (6.2-12.0); NRBC Flagged by Analyzer 0 % (0-5); Platelet Count 314 K/mm3 (150-450); RBC Distribution Width CV 13.0 % (11.6-14.6); RBC Distribution Width SD 40.1 fl (35.1-43.9); Red Blood Count 3.76 M/mm3 (4.2-5.4); White Blood Count 5.9 K/mm3 (4.4-11.0)
[2025-05-21 11:05] LABS: Prothrombin Time (Protime)PT. 13.9 SECONDS (11.7-14.9)
[2025-05-21 11:15] LABS: Vitamin D,25 Hydroxy 20.0 ng/mL (30-100)
[2025-05-21 12:27] LABS: Cholesterol 233 mg/dL (<=200); Ferritin 63 ng/mL (22-378); Low Density Lipoprotein Calc. 158 mg/dL; Triglycerides 161 mg/dL; Very Low Density Lipoprotein 32 mg/dL (5-40); cholesterol:hdl ratio screen 5.41
[2025-05-21 12:47] LABS: AST(SGOT) 32 U/L (<=31); Alanine Aminotransfer ALT/SGPT 26 U/L (<=34); Albumin, Serum 4.1 g/dL (3.4-4.8); Alkaline Phosphatase 135 U/L (35-104); Anion Gap 12 (5-15); BUN 14 mg/dL (4-19); BUN/Creat Ratio 18.5 RATIO (10-20); CRP 6.19 mg/L (0.0-3.0); Calcium,Total 9.5 mg/dL (7.6-11.0); Carbon Dioxide 22.0 mmol/L (21.0-32.0); Chloride 104 mmol/L (98-108); Globulin 3.1 g/dL (2.2-4.2); Glucose 96 mg/dL (70-99); Potassium 4.3 mmol/L (3.3-5.1)
[2025-05-21 13:05] LABS: LDH 249 U/L (84-246)
[2025-05-21 17:31] LABS: Xtra Tube Kwok EXTRA TUBE
[2025-05-24 14:08] LABS: ANTINUCLEAR ANTIBODIES DIRECT Negative (Negative)
[2025-05-25 16:09] LABS: Albumin 3.5 g/dL (2.9-4.4); Alkaline Phosphatase, Serum 140 IU/L (44-121); Anti-Smooth Muscle ABS 4 Units (0-19); Copper, Serum or Plasma 128 ug/dL (80-158); GGTP 57 IU/L (0-60); Gamma Globulin 0.9 g/dL (0.4-1.8); Immunoglobulin A 208 mg/dL (87-352); Immunoglobulin G 1016 mg/dL (586-1602); Immunoglobulin M 126 mg/dL (26-217); PROEL- TOTAL PROTEIN 6.8 g/dL (6.0-8.5)
== END | disposition home or self-care (01) ==
LOC: POLAB3 09:31
PROVIDERS: Internal Medicine; PCP Family Medicine Geriatric Medicine; Visit Provider Family Medicine Geriatric Medicine
DX: K74.60 Unspecified cirrhosis of liver (principal); I10 Essential (primary) hypertension; E78.5 Hyperlipidemia, unspecified; E55.9 Vitamin D deficiency, unspecified; K75.81 Nonalcoholic steatohepatitis (NASH); R13.19 Other dysphagia; G25.0 Essential tremor; R73.9 Hyperglycemia, unspecified
CPT/HCPCS: 36415; 80053; 80061; 82105; 82306; 82390; 82525; 82728; 82784; 82977; 83036; 83516; 83615; 84075; 84080; 84165; 84443; 85025; 85610; 86038; 86140; 86225; 86235; 86334

== ENCOUNTER → 2025-08-23 | Outpatient (CLI) | payer MEDICARE, MEDICAID, SELFPAY | END | disposition home or self-care (01) | LOC: POLAB3 10:21 | PROVIDERS: PCP Family Medicine Geriatric Medicine; Visit Provider Family Medicine Geriatric Medicine | DX: E03.9 Hypothyroidism, unspecified (principal) | CPT/HCPCS: 36415; 84443 ==

== ENCOUNTER → 2025-08-23 | Outpatient (CLI) | payer MEDICARE, SELFPAY ==
--- NOTE | 2025-08-23 09:50 | RAD_ITS ---
PROCEDURE: SINUSES MIN 3 VIEWS 08/23/2025 REASON FOR EXAM: COUGH TECHNIQUE: Procedure Code: RADSI Modality: DX Procedure: SINUSES MIN 3 VIEWS COMPARISON: None FINDINGS: Bones: No fracture or suspicious osseous lesion Sinuses: Clear Additional findings: No foreign body or soft tissue swelling RAD/Sinuses min 3 Views IMPRESSION: Unremarkable paranasal sinuses Reading Location: [id number]
== END | disposition home or self-care (01) ==
PROVIDERS: PCP Family Medicine Geriatric Medicine; Referring Provider Internal Medicine Gastroenterology; Visit Provider Internal Medicine Gastroenterology
DX: R05.9 Cough, unspecified (principal); R49.0 Dysphonia; E03.9 Hypothyroidism, unspecified
CPT/HCPCS: 36415; 70220; 84443

== ENCOUNTER → 2025-09-16 | Outpatient (CLI) | payer MEDICARE, SELFPAY | END | disposition home or self-care (01) | LOC: POLAB3 12:29 | PROVIDERS: PCP Family Medicine Geriatric Medicine; Visit Provider Family Medicine Geriatric Medicine | DX: J32.9 Chronic sinusitis, unspecified (principal); R05.9 Cough, unspecified; R06.2 Wheezing | CPT/HCPCS: 87631 ==

== ENCOUNTER → 2025-09-21 | Outpatient (CLI) | payer MEDICARE, MEDICAID, SELFPAY ==
--- NOTE | 2025-09-21 08:33 | ECHOD_ITS ---
Reason For Study Reason For Study: SHORTNESS OF BREATH Procedure This was a 2D Doppler, Color Flow transthoracic echocardiogram. Myocardial strain analysis was performed in this exam to aid in the assessment of cardiac function. Exam performed in department. Left Ventricle Normal LV size. Left ventricular systolic function is normal. The left ventricular ejection fraction is 55 %. No regional wall motion abnormalities noted. Right Ventricle Normal RV size. Normal systolic function. Atria Normal left atrium. Normal right atrium. Mitral Valve Moderate focal mitral valve thickening. Mild (1+) eccentric mitral valve insufficiency. Tricuspid Valve Normal tricuspid valve. Aortic Valve Trisinus/trileaflet aortic valve. Moderate focal aortic valve calcification. Peak aortic valve gradient 47 mmHg. Mean aortic valve gradient 37 mmHg. Moderate to severe aortic stenosis. Mild (1+) aortic valve insufficiency. Pulmonic Valve Normal pulmonic valve. Great Vessels Normal aortic root. The pulmonary artery is normal size. Inferior vena cava collapse with respiration. Pericardium/Pleural No pericardial effusion. MMode/2D Measurements & Calculations LVIDd: 4.4 cm IVSd: 1.0 cm LVOT diam: 2.1 cm RVDd: 3.4 cm LVPWd: 0.84 cm LVOT area: 3.6 cm2 Ao root diam: 3.3 cm asc Aorta Diam: 3.4 cm LAV(MOD- bp): 50.6 ml LAV(MOD- bp) Indexed: 29.3 ml/m2 LAV(MOD- sp2): 57.5 ml LAV(MOD- sp4): 43.6 ml LVAd ap4: 16.8 cm2 LVAd ap2: 15.1 cm2 SV(MOD- sp4): 20.2 ml LVLd ap4: 6.0 cm LVLd ap2: 6.1 cm SI(MOD- sp4): 11.7 ml/m2 EDV(MOD-sp4): 39.5 ml EDV(MOD-sp2): 31.8 ml EDV(sp4-el): 39.7 ml EDV(sp2-el): 32.0 ml LVAs ap4: 10.7 cm2 LVAs ap2: 9.6 cm2 LVLs ap4: 5.6 cm LVLs ap2: 5.0 cm ESV(MOD-sp4): 19.3 ml ESV(MOD-sp2): 15.3 ml ESV(sp4-el): 17.6 ml ESV(sp2-el): 15.5 ml EF(MOD-sp4): 51.2 % EF(MOD-sp2): 51.7 % EF(sp4-el): 55.8 % SV(MOD-sp2): 16.4 ml SV(sp4-el): 22.1 ml Ao sinus diam: 3.0 cm SI(MOD-sp2): 9.5 ml/m2 Ao ST Junction: 2.5 cm LA A4 area: 16.8 cm2 LA dimension(2D): 3.9 cm RA A4 area: 8.7 cm2 TAPSE: 1.5 cm Time Measurements MV dec time: 0.22 sec Doppler Measurements & Calculations MV E max brandon: 103.9 cm/sec Lat Peak E' Brandon: 5.9 cm/sec Med Peak E' Brandon: 5.5 cm/sec MV A max brandon: 91.1 cm/sec E/E' lat: 17.6 E/E' med: 19.0 MV E/A: 1.1 MV V2 max: 114.7 cm/sec Ao V2 max: 374.6 cm/sec MV max P.3 mmHg MV dec slope: 465.0 cm/sec2 Ao max P.0 mmHg MV V2 mean: 61.1 cm/sec Ao V2 mean: 292.8 cm/sec MV mean P.8 mmHg Ao mean P.1 mmHg MV V2 VTI: 36.8 cm Ao V2 VTI: 93.7 cm AV (velocity ratio): 0.16 MVA(VTI): 1.5 cm2 MILADIS(I,D): 0.58 cm2 MILADIS(V,D): 0.53 cm2 AI max brandon: 346.1 cm/sec LV V1 max: 56.3 cm/sec SV(LVOT): 54.5 ml AI max P.0 mmHg LV V1 max P.3 mmHg LV V1 mean P.74 mmHg AI dec slope: 204.7 cm/sec2 LV V1 mean: 41.3 cm/sec AI P1/2t: 495.1 msec LV V1 VTI: 15.3 cm PA V2 max: 59.8 cm/sec TR max brandon: 222.2 cm/sec TR max P.7 mmHg ECHO/Echo Complete Interpretation Summary Normal LV size. Left ventricular systolic function is normal. The left ventricular ejection fraction is 55 %. Mean aortic valve gradient 37 mmHg. Moderate to severe aortic stenosis. Moderate focal mitral valve thickening. The global longitudinal strain is mildly abnormal. The global longitudinal stra in = -15.3% (abnormal). Ordering Physician: Franklyn Justin Referring Physician: Gustavo Angeles Chi Performed By: Manju Luna RDCS
== END | disposition home or self-care (01) ==
LOC: CVS 08:28
PROVIDERS: PCP Family Medicine Geriatric Medicine; Referring Provider Internal Medicine Gastroenterology; Visit Provider Internal Medicine Gastroenterology
DX: R06.02 Shortness of breath (principal)
CPT/HCPCS: 93306

== ENCOUNTER 2025-10-25 02:57 | Emergency (ER) | payer MEDICARE, MEDICAID, SELFPAY ==
[2025-10-25 02:59] VITALS: BP 117/71; PULSE 79; RESP 18; TEMP 36.3; O2SAT 100; BMI 27.2
--- NOTE | 2025-10-25 03:10 | EDS_ITS ---
HPI History of Present Illness Chief Complaint: General Illness Informant: patient and spouse/S.O. Narrative Narrative: Patient is a 64-year-old female with a history of HI, tachycardia, and central tremors, presenting with acute onset of abdominal pain, nausea, emesis, diarrhea, and some lightheadedness. - Reports onset of symptoms within the last few hours. - Took a medication before bed, then experienced diarrhea. - Went to sleep, woke up with indigestion and abdominal pain and more diarrhea. Most of the abdominal pain has been upper/epigastric. [place] nauseated, went to the bathroom, and vomited. While going upstairs, felt dizzy and thought she might fall; sat down to avoid falling. Slid back down the stairs without injury and vomited a couple more times. No hematemesis or BRBPR. - Denies fever, sick contacts, recent travel, or recent antibiotic use. - Denies hematochezia or hematemesis. - Prior abdominal surgeries include hysterectomy and remote C-sections. [facility] Medical History Shortness of breath Aortic stenosis Wears dentures Wears glasses Thyroid disease Arthritis Fatty liver Anemia Easy bruising Excessive bleeding Difficulty chewing Gastric reflux Non-smoker Shortness of breath on exertion Leg cramps History of edema History of echocardiogram History of stress test History of rheumatic fever History of irregular heartbeat Tachycardia Asthma Graves disease Essential tremor Home Medications ?Medication ?Instructions ?Recorded ?Last Taken ?Type albuterol sulfate 90 mcg/actuation 2 puff inhalation P RN PRN Sob &/Or 12/10/17 Unknown History aerosol inhaler (Ventolin HFA) Wheezing loratadine 10 mg disintegrating 10 mg PO DAILY 8 Unknown History tablet (Alavert) mometasone-formoterol HFA 200 2 puff inhalation BID Unknown History mcg-5 mcg/actuation aerosol inhaler (Dulera) montelukast 10 mg tablet 10 mg PO DAILY 12/10/17 Unkn own History atenolol 100 mg tablet 100 mg PO DAILY #30 tabs 03/09/25 06:00 Rx isosorbide dinitrate 10 mg tablet 10 mg PO BID 5 Unknown History levothyroxine 88 mcg tablet 88 mcg PO QDAY 10/05/25 Un known History amlodipine 5 mg tablet 5 mg PO DAILY #90 tabs 10/11 Unknown Rx aspirin 81 mg tablet 81 mg PO DAILY #90 tabs 06/28 Unknown Rx fenofibrate nanocrystallized 145 145 mg PO DAILY #90 t abs 10/11/25 Unknown Rx mg tablet (Tricor) nitroglycerin 0.4 mg sublingual 0.4 mg sublingual Q5-1 5M PRN chest 10/11/25 Unknown Rx tablet pain #25 tabs dicyclomine 20 mg tablet 20 mg PO Q6H PRN PRN abdomin al 10/25/25 Unknown Rx discomfort #12 tabs ondansetron 8 mg disintegrating 8 mg PO Q8H PRN nausea and 10/25/25 Unknown Rx tablet vomiting #15 tabs Allergy/AdvReac Type Severity Reaction Status Date / Time Sulfa (Sulfonamide Allergy Severe Rash Verified 10/25/25 03:03 Antibiotics) azithromycin AdvReac Upset Verified 10/25/25 03:03 Stomach Surgical History History of surgery H/O breast biopsy Hx of tonsillectomy H/O: hysterectomy
--- NOTE | 2025-10-25 03:10 | EX.ED.DYSGE1 ---
HPI History of Present Illness Chief Complaint: General Illness Informant: patient and spouse/S.O. Narrative Narrative: Patient is a 64-year-old female with a history of MT, tachycardia, and central tremors, presenting with acute onset of abdominal pain, nausea, emesis, diarrhea, and some lightheadedness. - Reports onset of symptoms within the last few hours. - Took a medication before bed, then experienced diarrhea. - Went to sleep, woke up with indigestion and abdominal pain and more diarrhea. Most of the abdominal pain has been upper/epigastric. [place] nauseated, went to the bathroom, and vomited. While going upstairs, felt dizzy and thought she might fall; sat down to avoid falling. Slid back down the stairs without injury and vomited a couple more times. No hematemesis or BRBPR. - Denies fever, sick contacts, recent travel, or recent antibiotic use. - Denies hematochezia or hematemesis. - Prior abdominal surgeries include hysterectomy and remote C-sections. [facility] Medical History Shortness of breath Aortic stenosis Wears dentures Wears glasses Thyroid disease Arthritis Fatty liver Anemia Easy bruising Excessive bleeding Difficulty chewing Gastric reflux Non-smoker Shortness of breath on exertion Leg cramps History of edema History of echocardiogram History of stress test History of rheumatic fever History of irregular heartbeat Tachycardia Asthma Graves disease Essential tremor Home Medications ?Medication ?Instructions ?Recorded ?Last Taken ?Type albuterol sulfate 90 mcg/actuation 2 puff inhalation PRN PRN Sob &/Or 12/10/17 Unknown History aerosol inhaler (Ventolin HFA) Wheezing loratadine 10 mg disintegrating 10 mg PO DAILY 12/10/17 Unknown History tablet (Alavert) mometasone-formoterol HFA 200 2 puff inhalation BID 12/10/17 Unknown History mcg-5 mcg/actuation aerosol inhaler (Dulera) montelukast 10 mg tablet 10 mg PO DAILY 12/10/17 Unknown History atenolol 100 mg tablet 100 mg PO DAILY #30 tabs 07/02/23 03/09/25 06:00 Rx isosorbide dinitrate 10 mg tablet 10 mg PO BID 10/05/25 Unknown History levothyroxine 88 mcg tablet 88 mcg PO QDAY 10/05/25 Unknown History amlodipine 5 mg tablet 5 mg PO DAILY #90 tabs 10/11/25 Unknown Rx aspirin 81 mg tablet 81 mg PO DAILY #90 tabs 10/11/25 Unknown Rx fenofibrate nanocrystallized 145 145 mg PO DAILY #90 tabs 10/11/25 Unknown Rx mg tablet (Tricor) nitroglycerin 0.4 mg sublingual 0.4 mg sublingual Q5-15M PRN chest 10/11/25 Unknown Rx tablet pain #25 tabs dicyclomine 20 mg tablet 20 mg PO Q6H PRN PRN abdominal 10/25/25 Unknown Rx discomfort #12 tabs ondansetron 8 mg disintegrating 8 mg PO Q8H PRN nausea and 10/25/25 Unknown Rx tablet vomiting #15 tabs Allergy/AdvReac Type Severity Reaction Status Date / Time Sulfa (Sulfonamide Allergy Severe Rash Verified 10/25/25 03:03 Antibiotics) azithromycin AdvReac Upset Verified 10/25/25 03:03 Stomach Surgical History History of surgery H/O breast biopsy Hx of tonsillectomy H/O: hysterectomy Hx of cataract extraction History of cardiac catheterization Hx of shoulder surgery Hx of section Social History Smoking Status: Never smoker alcohol intake: never ROS ROS ED Constitutional Constitutional ED: Reports malaise; Denies chills or fever(s) Eyes Eyes: Denies change in vision or diplopia ENT ENT ED: Denies rhinorrhea or sore throat Cardiovascular Cardiovascular: Denies chest pain or palpitations Respiratory/Chest Respiratory/Chest: Denies cough or dyspnea Gastrointestinal Gastrointestinal: Reports abdominal pain, diarrhea, nausea and vomiting Genitourinary Genitourinary ED: Denies dysuria or hematuria Musculoskeletal Musculoskeletal: Denies back pain or neck pain Integumentary Denies abscess or rash Neurologic Neurologic: Denies headache(s), paresthesias or weakness Psychiatric Psychiatric: Denies suicidal thoughts EXAM Physical Exam Const Vital Signs: 10/25/25 02:59 10/25/25 03:03 Temperature 97.4 F L Temperature Source Oral Pulse Rate 79 Respiratory Rate 18 Respiratory Effort Normal Respiratory Pattern Normal Blood Pressure 117/71 Blood Pressure Mean 86 Pulse Ox 100 Oxygen Delivery Method Room Air Positive well nourished and well developed General Appearance ED: well developed and NAD HEENT Reports moist mucous membranes normocephalic and atraumatic Eyes PERRL and EOMs intact bilaterally Neck full ROM and supple Resp normal respiratory effort and clear to auscultation bilaterally Cardio regular rate and regular rhythm Heart Sounds: murmur systolic IV/ crescendo-decrescendo left sternal border GI non-distended GI Narrative: Left lower quadrant tenderness without rebound or guarding. No pulsatile mass. Intact distal pulses in the legs. No upper abdominal tenderness but makes patient dry heave with examination of this area. Auscultation: normoactive bowel sounds Palpation: soft Back/Spine no CVA tenderness General Back: other FROM Extremity normal to inspection General Extremety ED: Negative for edema, pulses abnormal or tenderness General Extremity: Negative for edema or pulses abnormal Neuro oriented x3, CN's II-XII intact bilaterally and no sensory deficits noted Sensorium / Orientation: awake and alert Motor Exam: strength 5/5 throughout Skin no rashes or lesions noted and no wounds MDM MDM MDM Narrative Medical decision making narrative: The patient is tender in the left lower quadrant. Blood work shows leukocytosis of 16.3 with a leftward shift but no bands. A CT scan was warranted to evaluate for diverticulitis, intraabdominal infection, or other inflammatory causes of the patient?s symptoms. A CT with IV contrast was obtained and is essentially normal. It demonstrates diverticulosis but no signs of diverticulitis. Liver enzymes and lipase are normal. Renal function and electrolytes are also normal. With IV fluids, Zofran, and morphine, the patient is now feeling much better and no longer has abdominal pain. She is tolerating oral fluids and her vital signs are stable. Given these findings, she can be safely discharged to follow up as an outpatient. The presumed diagnosis, based on the normal CT and her current symptoms, is gastroenteritis, most likely viral, given the increased incidence and prevalence in this region at present. We discussed reasons for her to return to the ER if needed. Otherwise, we will prescribe Zofran and dicyclomine as needed, and encourage continued fluid intake. Portions of this note were generated using voice recognition software ([employer]). I have reviewed the contents and every effort has been made to ensure accuracy; however, inadvertent errors in grammar, spelling, punctuation, or word choice may occur, that were not noted before signing the document and should not alter the intended clinical meaning. Lab Data Attestation: I reviewed the patient's lab results. Labs: Laboratory Results - last 24 hr 10/25/25 10/25/25 03:26 04:19 WBC 16.3 H RBC 4.28 Hgb 12.6 Hct 37.5 MCV 87.6 MCH 29.4 MCHC 33.6 RDW Std Deviation 44.3 H RDW Coeff of Evelyn 13.9 Plt Count 330 MPV 9.3 Immature Gran % (Auto) 0.500 Neut % (Auto) 80.8 H Lymph % (Auto) 10.1 L [place] % (Auto) 6.1 Eos % (Auto) 2.0 Baso % (Auto) 0.5 Absolute Neuts (auto) 13.2 H Absolute Lymphs (auto) 1.65 Nucleated RBC % 0 Sodium 140 Potassium 4.0 Chloride 102 Carbon Dioxide 24.1 Anion Gap 14 BUN 19 Creatinine 1.09 Estim Creat Clear Calc 47.54 L Est GFR (MDRD) Non-Af 56 L BUN/Creatinine Ratio 17.7 Glucose 145 H Calcium 9.6 Total Bilirubin 0.45 AST 30 ALT 33 Alkaline Phosphatase 91 Total Protein 7.0 Albumin 4.3 Globulin 2.7 Albumin/Globulin Ratio 1.6 Lipase 62 Urine Color Yellow Urine Clarity Clear Urine pH 7.0 Ur Specific [place] 1.010 Urine Protein Negative Urine Glucose (UA) Normal Urine Ketones Negative Urine Occult Blood Negative Urine Nitrite Negative Urine Bilirubin Negative Urine Urobilinogen Normal Ur Leukocyte Esterase Negative Urine RBC 0 SEEN Urine WBC 0 SEEN Ur Squamous Epith Cells 0 SEEN Urine Bacteria 0 SEEN Urine Mucus 0 SEEN Radiography Diagnostic Testing: Clinical Impression(s) from Imaging Studies Abdomen/Pelvis CT 10/25/25 03:55 IMPRESSION: Distal colonic diverticulosis. Degenerative changes at two thoracolumbar levels. Atherosclerosis. Reading Location: [id number] Discharge Plan Triage Chief Complaint: General Illness ED Provider: Corey Marte Dx/Rx/DC Orders Clinical Impression: Gastroenteritis, Acute abdominal pain, Nausea vomiting and diarrhea Instructions: ED Gastroenteritis, Viral (Adult) Prescriptions: New ondansetron 8 mg tablet,disintegrating 8 mg PO Q8H PRN (Reason: nausea and vomiting) Qty: 15 0RF dicyclomine 20 mg tablet 20 mg PO Q6H PRN PRN (Reason: abdominal discomfort) Qty: 12 0RF No Action isosorbide dinitrate 10 mg tablet 10 mg PO BID levothyroxine 88 mcg tablet 88 mcg PO QDAY loratadine [Alavert] 10 tablet,disintegrating 10 mg PO DAILY Patient Comments: montelukast 10 MG tablet 10 mg PO DAILY albuterol sulfate [Ventolin HFA] 108 HFA aerosol inhaler 2 puff inhalation PRN PRN (Reason: Sob &/Or Wheezing) Patient Comments: Dulera 0 HFA aerosol inhaler 2 puff inhalation BID Patient Comments: atenolol 100 mg tablet 100 mg PO DAILY Qty: 30 4RF amlodipine 5 mg tablet 5 mg PO DAILY Qty: 90 3RF aspirin 81 mg tablet 81 mg PO DAILY Qty: 90 3RF fenofibrate nanocrystallized [Tricor] 145 mg tablet 145 mg PO DAILY Qty: 90 3RF nitroglycerin 0.4 mg tablet, sublingual 0.4 mg sublingual Q5-15M PRN (Reason: chest pain) Qty: 25 1RF Rx Instructions: do not exceed 3 doses per episode Primary Care Provider: Gustavo Angeles Chi Referrals: Gustavo Angeles Chi, MD [Primary Care Provider, Geriatrics] - 3-5 Days if not improving Print Language: Uzbek Disposition Disposition: Home, Self Care
[2025-10-25] MEDS: 0.9% Normal Saline (1000mL) 1,000 ML 999 ML IV (03:30)
[2025-10-25 03:42] LABS: Hematocrit 37.5 % (37-47); Hemoglobin 12.6 g/dL (12.0-15.0); Immature Granulocytes Count 0.080 X10^3/uL (0.0-0.0); Mean Corp Hgb Conc 33.6 g/dL (32-36); Mean Corpuscular Volume 87.6 fL (81-99); Mean Platelet Vol. 9.3 fl (6.2-12.0); NRBC Flagged by Analyzer 0 % (0-5); Platelet Count 330 K/mm3 (150-450); RBC Distribution Width CV 13.9 % (11.6-14.6); RBC Distribution Width SD 44.3 fl (35.1-43.9); Red Blood Count 4.28 M/mm3 (4.2-5.4); White Blood Count 16.3 K/mm3 (4.4-11.0)
--- NOTE | 2025-10-25 03:55 | CT_ITS ---
PROCEDURE: ABDOMEN/PELVIS W IV CONT ONLY 10/25/2025 REASON FOR EXAM: LLQ TEND, N/V/D TECHNIQUE: Procedure Code: [id number] Modality: CT Procedure: ABDOMEN/PELVIS W IV CONT ONLY Coronal and Sagittal reconstruction series were provided. CONTRAST: Isovue 370 VOLUME: 97 mL One or more dose reduction techniques were used (e.g., Automated exposure control, adjustment of the mA and/or kV according to patient size, use of iterative reconstruction technique. RADIATION DOSE SUMMARY: CTDlvol: 27.81 mGy DLP: DLP 581.44 mGycm COMPARISON: Comparison none FINDINGS: Lung bases: Mild dependent atelectasis Liver: Normal size. No mass. Gallbladder: Gallbladder unremarkable. Spleen: Normal size. Pancreas: Normal size without evidence of mass surrounding inflammation or ductal dilation. Adrenals: Adrenal glands appear normal. Kidneys: Normal renal sizes. No hydronephrosis. Bladder: Unremarkable. Reproductive Organs: The uterus is absent. Bowel: There are multiple small diverticula at the descending colon and sigmoid colon, more profuse at the sigmoid colon. There is no evidence of diverticulitis. Appendix: Appendix the appendix and the periappendiceal region appear normal. Lymph nodes: Unremarkable Vasculature: Vasculature there is slight to moderate calcification of the thoracoabdominal aorta. There is no evidence of an aortic aneurysm nor dissection. The IVC appears normal. Peritoneum / Retroperitoneum: Peritoneal there is no ascites nor free intraperitoneal gas. Bones: There is marked degenerative narrowing of the T11-T12 disc. There is grade 1 anterior spondylolisthesis of L4 with respect to L5. CT/Abdomen/Pelvis W IV Cont ONLY IMPRESSION: Distal colonic diverticulosis. Degenerative changes at two thoracolumbar levels. Atherosclerosis. Reading Location: [id number]
[2025-10-25 04:06] LABS: AST(SGOT) 30 U/L (<=31); Alanine Aminotransfer ALT/SGPT 33 U/L (<=34); Albumin, Serum 4.3 g/dL (3.4-4.8); Alkaline Phosphatase 91 U/L (35-104); Anion Gap 14 (5-15); BUN 19 mg/dL (4-19); BUN/Creat Ratio 17.7 RATIO (10-20); Calcium,Total 9.6 mg/dL (7.6-11.0); Carbon Dioxide 24.1 mmol/L (21.0-32.0); Chloride 102 mmol/L (98-108); Estimated Creatinine Clearance 47.54 ml/min (50-250); Globulin 2.7 g/dL (2.2-4.2); Glucose 145 mg/dL (70-99); Lipase 62 U/L (13-75); Potassium 4.0 mmol/L (3.3-5.1)
[2025-10-25 04:28] LABS: Color, Urine Yellow (Yellow); Glucose, Dipstick Normal (Normal); Ketone-Dipstick Negative (Negative); Leukocyte Esterase-Dipstick Negative /ul (Negative); Mucous, Urine 0 SEEN /hpf (<or=2+); Nitrite-Dipstick Negative (Negative); Occult Blood-Urine Negative /ul (Negative); Protein-Dipstick Negative (Negative); Red Blood Cells-Urine 0 SEEN /hpf (0-5); Specific Gravity, Urine 1.010 (1.002-1.030); Squamous Epithelial Cells - UA 0 SEEN /hpf (5-10); Urine Bilirubin Dipstick Negative (Negative)
[2025-10-25 04:59] VITALS: BP 113/49; PULSE 69; RESP 18; O2SAT 100
[2025-10-25 05:05] VITALS: BP 113/49; PULSE 72; RESP 16; TEMP 36.8; O2SAT 99
== END 2025-10-25 05:10 | disposition home or self-care (01) ==
PROVIDERS: Emergency Provider Emergency Medicine; PCP Family Medicine Geriatric Medicine; Visit Provider Emergency Medicine
DX: A08.4 Viral intestinal infection, unspecified (principal)
CPT/HCPCS: 74177; 80053; 81001; 83690; 85025; 96361; 96374; 96375; 99283; Q9967; A4216; J2405